=== PATIENT | female | born 1980 | race Caucasian/White ===

== ENCOUNTER 2019-08-22 16:52 | Inpatient (IN) | payer MEDICAID, SELFPAY | END 2019-08-27 12:07 | disposition home or self-care (01) | DRG 885 | PROVIDERS: Family Provider Family Medicine | DX: F33.1 Major depressive disorder, recurrent, moderate (principal); G40.209 Localization-related (focal) (partial) symptomatic epilepsy and epileptic syndromes with complex partial seizures, not intractable, without status epilepticus; R45.851 Suicidal ideations; Z96.9 Presence of functional implant, unspecified; Z28.21 Immunization not carried out because of patient refusal ==

== ENCOUNTER 2019-09-21 20:40 | Inpatient (IN) | payer MEDICAID, SELFPAY ==
[2019-09-21 20:48] VITALS: BP 117/72; PULSE 69; RESP 16; TEMP 36.6; O2SAT 100; BMI 22.9
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
[2019-09-21 21:18] LABS: Basophils # 0.1 10^3/uL (0.0-0.1); Basophils % 1.1 %; Eosinophils # 0.5 10^3/uL (0.0-0.8); Eosinophils % 11.4 %; Hematocrit 34.3 % (37.0-47.0); Hemoglobin 11.3 g/dL (11.5-15.3); Lymphocytes % 22.4 %; Mean Corpuscular HGB Conc 32.9 g/dL (30.0-36.0); Mean Corpuscular Hemoglobin 30.5 pg (28.0-34.0); Mean Corpuscular Volume 92.5 fL (81-99); Monocytes # 0.4 10^3/uL (0.2-0.9); Monocytes % 8.2 %; Neutrophils # 2.6 10^3/uL (1.8-7.7); Neutrophils % 56.5 %; Nucleated Red Blood Cells % 0 %; Platelet Count 253 10^3/cmm (130-400); Red Blood Count 3.71 10^6/uL (4.1-5.3); Red Cell Distribution Width 11.7 % (12.1-15.1); White Blood Count 4.6 10^3/uL (4.0-10.0)
[2019-09-21 21:32] LABS: Alanine Aminotransferase 10 U/L (0-33); Albumin Level 3.9 g/dL (3.5-5.2); Alkaline Phosphatase 62 IU/L (35-105); Anion Gap 13.1 (5-19); Aspartate Amino Transferase 15 U/L (0-32); Blood Urea Nitrogen 7 mg/dL (6-20); Calcium 9.2 mg/Dl (8.6-10.0); Carbon Dioxide 28 mmol/L (22-29); Chloride 101 mmol/L (98-107); Globulin 2.7 g/dL (1.3-4.6); Glomerular Filtration Rate 80.3 mL/min (90-130); Glucose 107 mg/dL (74-109); Potassium 4.1 mmol/L (3.5-5.1); Sodium 138 mmol/L (136-145); Total Bilirubin 0.2 mg/dL (0.15-1.2); Total Protein 6.6 g/dL (6.6-8.7)
[2019-09-21 21:34] LABS: Acetaminophen < 5.0 ug/mL (10-30); Alcohol Level < 10 mg/dL (0-10); Salicylate < 0.3 mg/dL (3-10)
[2019-09-21 22:11] LABS: HCG Qualitative Urine. Negative (Negative)
--- NOTE | 2019-09-21 23:01 | PC.NURSE ---
Attempted to call report 2 times NPU refused report due to patient not being registered properly.
--- NOTE | 2019-09-21 23:15 | PC.NURSE ---
Psych unable to take report due to just receiving a patient
[2019-09-22 00:08] VITALS: BP 98/73; PULSE 67; RESP 16; O2SAT 100
[2019-09-22 06:00] VITALS: BP 96/62; PULSE 77; RESP 14; TEMP 36.8; O2SAT 96
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
[2019-09-22] MEDS: carBAMazepine 200 mg Tablet PO (13:20)
[2019-09-22 14:00] VITALS: BP 103/67; PULSE 75; RESP 18; TEMP 36.4; O2SAT 98
[2019-09-22] MEDS: trazodone 50 mg Tablet PO ×2 (15:24→20:40)
[2019-09-22 17:27] LABS: Bilirubin Urine Neg (NEGATIVE); Blood Urine Neg (Negative); Glucose Urine UA Norm (Normal); Ketones Urine Negative (Negative); Leukocyte Esterase Urine Negative (Negative); Nitrate Urine Negative (Negative); Protein Urine Neg (Negative); Specific Gravity, Urine 1.005 (1.005-1.030); Urine Appearance Clear (CLEAR); Urine Color Yellow (Yellow); Urobilinogen Urine Norm (Negative); pH Urine 7 (5-7)
[2019-09-22 17:30] LABS: Add Urine Culture? No; Bacteria Urine 2+; WBC Urine 0-4 /hpf (0-5)
[2019-09-22] MEDS: fluticasone nasal spray 16gm Btl 1 SPRAY INTRANASAL (17:33)
[2019-09-22] MEDS: levETIRAcetam 500 mg Tablet 1000 MG PO (17:34)
[2019-09-22 17:46] LABS: Amphetamines Screen Urine Negative (Negative); Barbiturates Screen Urine Negative (Negative); Benzodiazepines Screen Urine Positive (Negative); Cocaine Screen Urine Negative (Negative); Opiate Screen Urine Negative (Negative); PCP Screen Urine Negative (Negative); THC Screen Urine Negative (Negative)
[2019-09-22] MEDS: carBAMazepine 200 mg Tablet 400 MG PO (20:40)
[2019-09-22 21:10] VITALS: BP 100/65; PULSE 82; RESP 16; TEMP 36.8; O2SAT 96
[2019-09-23 06:00] VITALS: BP 91/57; PULSE 70; RESP 16; TEMP 36.8; O2SAT 98
[2019-09-23] MEDS: montelukast sodium 10 mg Tablet PO (09:39)
[2019-09-23] MEDS: levETIRAcetam 500 mg Tablet 1000 MG PO (09:39)
[2019-09-23] MEDS: carBAMazepine 200 mg Tablet PO (09:41)
[2019-09-23] MEDS: trazodone 50 mg Tablet PO ×2 (09:41→14:28)
[2019-09-23] MEDS: fluticasone nasal spray 16gm Btl 1 SPRAY INTRANASAL (09:41)
[2019-09-23] MEDS: citalopram 20 mg Tablet PO (09:41)
[2019-09-23 14:00] VITALS: BP 98/69; PULSE 88; RESP 20; TEMP 36.3; O2SAT 96
[2019-09-23 15:13] VITALS: BP 98/69; PULSE 88; RESP 20; TEMP 36.3; O2SAT 96
--- NOTE | 2019-09-23 15:48 | PM.NDC ---
Reason for Visit Reason for Visit: Reason For Visit: SI Brief History: Chief complaint: I discussed so angry at my 16-year-old daughter I wanted to bring her neck. History of present illness: Donna Bravo is a 39-year-old woman with poorly controlled partial complex seizures that is well-known to the unit as she was just discharged from here less than a month ago.Historically, she has committed unit because of difficulty controlling her partial complex seizures and emotional difficulty from that. However, this event was resulted from family discord. She details a long history of Adversary relationship between she and her daughter on the day of admission. Prior to that confrontation, she was not having suicidal thoughts and does not relate that she was in emotional distress. However, her daughter has become increasingly defiant. Mother is uncomfortable with the daughter's relationship with another boy and tried to intervene personally. This amplified the discord. She was so distraught she was wishing she was . However at no time did she ever have an intent or plan to end her life. She did not use her coping skills of writing a journal. She says that she has no supportive relationships that she can rely on during her periods of stress to help her with coping skills. Following her last discharge, [facility] She says that the [facility] keeps trying to get a hold of her and she is unavailable so she has not been able to set up appointment for individual counseling. She denies problems with the seizure control. She is active in treatment with Dr. Lowe. In fact, she has an appointment with Dr. Lowe later this afternoon and she prefers to remain in the hospital until she is through her episode of emotional distress. She denies the presence of auditory or visual hallucinations. She denies problems with current side effects. She requested no changes in medications. Hospital Course Discharge Summary Diagnoses:Adjustment disorder with disturbance of mood Assessment:The patient is on voluntary status. No medication changes are indicated. Treatment plan: Due to the psychiatric conditions and treatment listed in the Assessment and Plan - the patient requires continued hospitalization. Will provide a safe and therapeutic environment for patient.. Will continue inpatient treatment to allow for medication adjustment and monitoring. Will continue q15 min safety checks. Will continue current medications and monitor for medication side effects. By hospital day #3, she has resolved her emotional distress with medication. She was having suicidal thoughts. She had a plan on how to deal with her anger next time she got into an argument with her daughter. She agreed that she needed to be a little bit more assertive and imaging available for [facility] when they contacted her to set up an intake appointment. 96 hour involuntary discontinued and she was discharged. Involuntary Hold Information 96 Hour Hold: 96 Hour Involuntary Admission: No Mental Status Exam MSE Comments: Mental Status Exam: The patient is alert interpersonally engaged female appearing approximately her stated age. She is in no emotional distress. She is not tearful. Appearance: hygiene is fair; no gross neurological deficits., gait is unremarkable; AIMS=0 Speech: Speech is of normal rate and rhythm and easily understood. Thought processes: Thought processes are abstract. Judgment is adequate for safety. Associations: intact Psychotic processes: There is no indication of guarding or paranoia. There is no attention to the internal stimuli. Auditory and visual hallucinations are denied. Judgment: Insight is fair. Problem solving skills are adequate for safety. Orientation: The patient is oriented to person, place time and situation. Memory: no deficits noted in immediate, intermediate, or remote spheres. Attention: The patient is alert and interpersonally engaged. Language: Verbalizations are coherent. Fund of knowledge: Fund of knowledge is adequate. Affect/Mood: Affect is Happy with a Euthymic mood. She denied suicidal ideation Affective range appropriate. Psychosis: perception unimpaired except through cognitive distortion; reality testing intact. Discharge Data Data Completed and Pending: Labs from last 24 hours 09/22/19 09/22/19 15:30 15:30 Urine Color Yellow Urine Appearance Clear Urine pH 7 Ur Specific Gravit y 1.005 Urine Protein Neg Urine Glucose (UA) Norm Urine Ketones Negative Urine Occult Blood Neg Urine Nitrate Negative Urine Bilirubin Neg Urine Urobilinogen Norm Ur Leukocyte Nikki ase Negative Urine RBC None Urine WBC 0-4 H Ur Squamous Epith Cells 5-10 H Urine Bacteria 2+ H Urine Opiates Scre en Negative Ur Barbiturates Sc reen Negative Ur Phencyclidine S crn Negative Ur Amphetamines Sc reen Negative U Benzodiazepines Scrn Positive H Urine Cocaine Scre en Negative U Marijuana (THC) Screen Negative Vitals: Last Vital Signs Temp 97.4 F L 09/23/19 15:13 Pulse 88 09/23/19 15:13 Resp 20 H 09/23/19 15:13 BP 98/69 09/23/19 15:13 Pulse Ox 96 09/23/19 15:13 Discharge Plan Discharge Patient Disposition: Home, Self-Care Condition: Stable Prescriptions: Continued trazodone 50 mg Tablet 50 mg PO TID Qty: 30 RF: 2 Keppra 500 mg Tablet 1,000 mg PO BID Qty: 60 RF: 2 citalopram 20 mg Tablet 20 mg PO DAILY Qty: 30 RF: 2 naproxen sodium 220 mg Tablet 220 mg PO BID PRN (Reason: Pain) Qty: 60 RF: 2 montelukast 10 mg Tablet 10 mg PO DAILY Qty: 30 RF: 2 fluticasone propionate 50 mcg/actuation [place],Suspension 1 spray INTRANASAL BID Qty: 30 RF: 2 diazepam 5 mg Tablet 5 mg PO QPM PRN (Reason: Anxiety) Qty: 30 RF: 1 clobazam 20 mg Tablet 30 mg PO QPM Qty: 30 RF: 0 Changed carbamazepine 200 mg Capsule, Er Multiphase 12 Hr 400 mg PO BEDTIME Qty: 60 RF: 0 Discharge Orders: Discharge Order (Routine); Ordered 09/23/19 Ordered By: Luciano Choe Referrals: Dana Lowe MD [Physician] - 10/27/19 3:15 pm Activity Restrictions/Additional Instructions: [facility] [place] [address] Referral was done for individual therapy. you will need to keep checking on appointment. Referral is still pending. Discharge Attestations NPU Time Spent in Discharge Care*: greater than 30 min Coding Level of Care Code Acute [employer] for Jenniferg Jacinto
[2019-09-23 17:15] VITALS: BP 98/69; PULSE 88; RESP 20; TEMP 36.3; O2SAT 96
== END 2019-09-23 17:15 | disposition home or self-care (01) | DRG 882 ==
LOC: ER 21:13 → NP 22:33
PROVIDERS: Emergency Medicine; Admitting Provider Psychiatry & Neurology Psychiatry; Emergency Provider Emergency Medicine; Family Provider Family Medicine; PCP Family Medicine; Visit Provider Psychiatry & Neurology Psychiatry
DX: F43.25 Adjustment disorder with mixed disturbance of emotions and conduct (principal); G40.209 Localization-related (focal) (partial) symptomatic epilepsy and epileptic syndromes with complex partial seizures, not intractable, without status epilepticus; R45.851 Suicidal ideations
CPT/HCPCS: 12345; 36415; 80053; 80307; 81001; 81025; 85025; 99284

== ENCOUNTER 2019-09-21 20:40 | Emergency (ER) | payer MEDICAID, SELFPAY | END 2019-09-22 00:10 | disposition admitted as inpatient to this hospital (09) | LOC: ER 10-21 10:00 | PROVIDERS: Emergency Provider Emergency Medicine; Family Provider Family Medicine; PCP Family Medicine | DX: R45.851 Suicidal ideations (principal) | CPT/HCPCS: 36415; 80053; 80307; 81025; 85025; 99284; 99285 ==

== ENCOUNTER 2019-10-29 18:04 | Emergency (ER) | payer MEDICAID, SELFPAY ==
[2019-10-29 18:07] VITALS: BMI 23.6
[2019-10-29 18:13] VITALS: BP 115/66; PULSE 62; RESP 16; TEMP 36.8; O2SAT 100
--- NOTE | 2019-10-29 18:13 | ED_ITS ---
Entered by Kourtney Meadows, acting as scribe for Yaneth Charles MD HPI - Psych General: Chief Complaint: Psychiatric Symptoms Stated Complaint: SI Time Seen by Provider: 10/29/19 18:12 Source: patient Mode of arrival: EMS Limitations: no limitations History of Present Illness: HPI Narrative: 39 yo Female presents to ED with complaint of suicidal ideation. Pt states that she told her mom that she would take all of the cats and shoot them and shoot herself since they were all stressors to her mom. Pt states that her mom has been at [employer] and things were going well with her daughter and new rules at the house. Pt states that when her mom came home, she tried changing the rules and got upset that she didn't want the cats in her room. Pt states that she isn't having homicidal or suicidal ideation. Pt states that she just made the statement out of frustration. Pt states that her mom called EMS and she tried to call them back to cancel them but it was too late and she got brought in. complaint: suicidal ideation Onset (ago): hour(s) Duration: resolved prior to arrival History of same: Yes Relieving factors: none Exacerbating factors: none Associated psychiatric symptoms: none Associated symptoms: Deny homicidal ideation or suicidal ideation Treatments prior to arrival: none Review of Systems Const: Denies: fever, chills, body aches or change in appetite Eyes: Denies: blurry vision or eye discomfort ENMT: Denies: throat pain or dental pain Card: Denies: chest pain Resp: Denies: shortness of breath GI: Denies: abdominal pain, nausea, vomiting or diarrhea : Denies: painful urination Musc: Denies: neck pain or back pain Skin/Breast: Denies: rash Neuro: Denies: headache Psych: Denies: suicidal ideation or homicidal ideation Be/Lymph: Denies: easy bruising All/Imm: Denies: hives PFSH ED PFSH: Social History Smoking and tobacco status: never smoked Female Reproductive History: Date of last menstrual period: 10/25/19 Physical Exam Const: COMMON NORMALS: no apparent distress, oriented x3 and healthy appearing HENMT: COMMON NORMALS: normocephalic and head/scalp atraumatic HEAD & SCALP: normocephalic and atraumatic Eye: COMMON NORMALS: PERRL and EOMs intact bilaterally PUPIL: Yes PERRL Neck/C-Spine: COMMON NORMALS: full ROM and supple Chest: COMMONS NORMALS: inspection of chest normal and palpation of chest normal Resp: COMMON NORMALS: normal respiratory effort, no retractions, no use of accessory muscles and clear to auscultation bilaterally AUSCULTATION: clear to auscultation bilaterally Cardio: COMMON NORMALS: regular rate, regular rhythm and no murmurs RATE: regular rate RHYTHM: regular rhythm GI: COMMON NORMALS: normal to inspection, nondistended, normoactive bowel sounds, soft to palpation, non-tender and no masses PALPATION: Yes soft Extremity: COMMON NORMALS: normal to inspection and full ROM Neuro: COMMON NORMALS: oriented x3, moves all extremities and no focal motor deficits Psych: COMMON NORMALS: mental status grossly normal, thought process normal and cooperative THOUGHT PROCESS: normal thought process Skin: COMMON NORMALS: no rashes or lesions noted and no wounds GENERAL SKIN EXAM: no rashes or lesions noted MDM - Psych MDM Narrative: Medical decision making narrative: Patient presents here with anxiety. Patient adamantly denied any suicidality or homicidality me along with EMS. She has no signs of wanting to kill herself. Had a very long discussion with her I feel she is stable for discharge. She said many times she was just upset with her mother. Patient is stable for discharge and is to return if worsening. Discharge Plan Discharge Patient Disposition: Home, Self-Care Clinical Impression: Acute anxiety Condition: Stable Prescriptions: No Action trazodone 50 mg Tablet 50 mg PO TID Qty: 30 RF: 2 Keppra 500 mg Tablet 1,000 mg PO BID Qty: 60 RF: 2 citalopram 20 mg Tablet 20 mg PO DAILY Qty: 30 RF: 2 naproxen sodium 220 mg Tablet 220 mg PO BID PRN (Reason: Pain) Qty: 60 RF: 2 montelukast 10 mg Tablet 10 mg PO DAILY Qty: 30 RF: 2 fluticasone propionate 50 mcg/actuation [place],Suspension 1 spray INTRANASAL BID Qty: 30 RF: 2 diazepam 5 mg Tablet 5 mg PO QPM PRN (Reason: Anxiety) Qty: 30 RF: 1 carbamazepine 200 mg Capsule, Er Multiphase 12 Hr 400 mg PO BEDTIME Qty: 60 RF: 0 clobazam 20 mg Tablet 30 mg PO QPM Qty: 30 RF: 0 Discharge Orders: Discharge Order (Routine); Ordered 10/29/19 Ordered By: Yaneth Charles Referrals: Ciera Deng MD [Primary Care Provider] - 4-7 days Discharge Diet: Advance as tolerated Discharge Activity: Resume usual activity Patient Instructions: Anxiety (ED) Discharge Date/Time: 10/29/19 19:34 Coding Level of Care Code ED Fiscal Analyst for Chg Fwd Exam Comprehensive The documentation recorded by the Dori tamayo Carmen, accurately reflects the service I personally performed and the decisions made by Melvin amin Korby, MD Oct 29, 2019 18:04
[2019-10-29 18:19] VITALS: O2SAT 99
[2019-10-29] MEDS: LORazepam 1 mg Tablet 0.5 MG PO (19:26)
== END 2019-10-29 19:34 | disposition home or self-care (01) ==
PROVIDERS: Emergency Provider Emergency Medicine; Family Provider Family Medicine; PCP Family Medicine
DX: F41.9 Anxiety disorder, unspecified (principal)
CPT/HCPCS: 99284

== ENCOUNTER → 2019-11-06 12:56 | Outpatient (BNVA) | payer MEDICAID, SELFPAY | PROVIDERS: Family Provider Family Medicine; PCP Family Medicine; Visit Provider Counselor Mental Health | DX: F41.1 Generalized anxiety disorder (principal) | CPT/HCPCS: 90834 ==

== ENCOUNTER → 2019-11-13 14:30 | Outpatient (BNVA) | payer MEDICAID, SELFPAY | PROVIDERS: Family Provider Family Medicine; PCP Family Medicine; Visit Provider Counselor Mental Health | DX: F41.1 Generalized anxiety disorder (principal) | CPT/HCPCS: 90834 ==

== ENCOUNTER → 2019-11-18 14:22 | Outpatient (BNVA) | payer MEDICAID, SELFPAY | PROVIDERS: Family Provider Family Medicine; PCP Family Medicine; Visit Provider Counselor Mental Health | DX: F33.41 Major depressive disorder, recurrent, in partial remission (principal) | CPT/HCPCS: 90834 ==

== ENCOUNTER → 2019-11-25 14:45 | Outpatient (BNVA) | payer MEDICAID, SELFPAY | PROVIDERS: Family Provider Family Medicine; PCP Family Medicine; Visit Provider Counselor Mental Health | DX: F33.41 Major depressive disorder, recurrent, in partial remission (principal) | CPT/HCPCS: 90834 ==

== ENCOUNTER → 2019-12-16 08:53 | Outpatient (BNVA) | payer MEDICAID, SELFPAY | PROVIDERS: Family Provider Family Medicine; PCP Family Medicine; Visit Provider Psychiatry & Neurology Psychiatry | DX: F41.1 Generalized anxiety disorder (principal); F33.1 Major depressive disorder, recurrent, moderate; F60.9 Personality disorder, unspecified; F33.2 Major depressive disorder, recurrent severe without psychotic features | CPT/HCPCS: 99204 ==

== ENCOUNTER → 2019-12-22 08:40 | Outpatient (BNVA) | payer MEDICAID, SELFPAY | PROVIDERS: Family Provider Family Medicine; PCP Family Medicine; Visit Provider Counselor Mental Health | DX: F41.1 Generalized anxiety disorder (principal); F33.1 Major depressive disorder, recurrent, moderate; F60.9 Personality disorder, unspecified | CPT/HCPCS: 90834 ==

== ENCOUNTER → 2019-12-28 14:54 | Outpatient (BNVA) | payer MEDICAID, SELFPAY | PROVIDERS: Family Provider Family Medicine; PCP Family Medicine; Visit Provider Specialist | DX: G40.219 Localization-related (focal) (partial) symptomatic epilepsy and epileptic syndromes with complex partial seizures, intractable, without status epilepticus (principal) | CPT/HCPCS: 95971; 99214 ==

== ENCOUNTER → 2020-01-05 08:37 | Outpatient (BNVA) | payer MEDICAID, SELFPAY | PROVIDERS: Family Provider Family Medicine; PCP Family Medicine; Visit Provider Counselor Mental Health | DX: F60.9 Personality disorder, unspecified (principal); F33.1 Major depressive disorder, recurrent, moderate; F41.1 Generalized anxiety disorder | CPT/HCPCS: 90834 ==

== ENCOUNTER → 2020-01-12 08:25 | Outpatient (BNVA) | payer MEDICAID, SELFPAY | PROVIDERS: Family Provider Family Medicine; PCP Family Medicine; Visit Provider Counselor Mental Health | DX: F33.1 Major depressive disorder, recurrent, moderate (principal); F41.1 Generalized anxiety disorder | CPT/HCPCS: 90834 ==

== ENCOUNTER → 2020-01-15 16:45 | Outpatient (BNVA) | payer MEDICAID, SELFPAY | PROVIDERS: Family Provider Family Medicine; PCP Family Medicine; Visit Provider Nurse Practitioner Family | DX: J30.89 Other allergic rhinitis (principal); F41.1 Generalized anxiety disorder; Z13.6 Encounter for screening for cardiovascular disorders | CPT/HCPCS: 80053; 80061; 84443; 85025 ==

== ENCOUNTER → 2020-01-19 08:52 | Outpatient (BNVA) | payer MEDICAID, SELFPAY | PROVIDERS: Family Provider Family Medicine; PCP Family Medicine; Visit Provider Counselor Mental Health | DX: F33.1 Major depressive disorder, recurrent, moderate (principal); F41.1 Generalized anxiety disorder | CPT/HCPCS: 90834 ==

== ENCOUNTER → 2020-01-27 08:29 | Outpatient (BNVA) | payer MEDICAID, SELFPAY | PROVIDERS: Family Provider Family Medicine; PCP Family Medicine; Visit Provider Psychiatry & Neurology Psychiatry | DX: F41.1 Generalized anxiety disorder (principal); F33.1 Major depressive disorder, recurrent, moderate; F60.9 Personality disorder, unspecified | CPT/HCPCS: 99213 ==

== ENCOUNTER → 2020-02-02 08:53 | Outpatient (BNVA) | payer MEDICAID, SELFPAY | PROVIDERS: Family Provider Family Medicine; PCP Family Medicine; Visit Provider Counselor Mental Health | DX: F33.1 Major depressive disorder, recurrent, moderate (principal); F41.1 Generalized anxiety disorder | CPT/HCPCS: 90834 ==

== ENCOUNTER → 2020-02-09 08:30 | Outpatient (BNVA) | payer MEDICAID, SELFPAY | PROVIDERS: Family Provider Family Medicine; PCP Family Medicine; Visit Provider Counselor Mental Health | DX: F33.1 Major depressive disorder, recurrent, moderate (principal); F41.1 Generalized anxiety disorder | CPT/HCPCS: 90834 ==

== ENCOUNTER → 2020-02-16 08:15 | Outpatient (BNVA) | payer MEDICAID, SELFPAY | PROVIDERS: Family Provider Family Medicine; PCP Family Medicine; Visit Provider Counselor Mental Health | DX: F60.9 Personality disorder, unspecified (principal); F33.1 Major depressive disorder, recurrent, moderate; F41.1 Generalized anxiety disorder | CPT/HCPCS: 90834 ==

== ENCOUNTER → 2020-02-23 08:18 | Outpatient (BNVA) | payer MEDICAID, SELFPAY | PROVIDERS: Family Provider Family Medicine; PCP Family Medicine; Visit Provider Counselor Mental Health | DX: F33.1 Major depressive disorder, recurrent, moderate (principal); F41.1 Generalized anxiety disorder; F60.9 Personality disorder, unspecified | CPT/HCPCS: 90832 ==

== ENCOUNTER → 2020-03-02 14:20 | Outpatient (BNVA) | payer MEDICAID, SELFPAY | PROVIDERS: Family Provider Family Medicine; PCP Family Medicine; Visit Provider Specialist | DX: G40.219 Localization-related (focal) (partial) symptomatic epilepsy and epileptic syndromes with complex partial seizures, intractable, without status epilepticus (principal) | CPT/HCPCS: 99214 ==

== ENCOUNTER 2020-03-02 15:17 | Outpatient (CLI) | payer MEDICAID, SELFPAY ==
[2020-03-02 16:44] LABS: Carbamazepine Tegretol 5.9 ug/mL (4.0-12.0)
[2020-03-05 18:04] LABS: Levetiracetam Keppra 24.1 mcg/mL
== END 2020-03-02 15:18 | disposition home or self-care (01) ==
LOC: LAB 15:19
PROVIDERS: PCP Family Medicine; Visit Provider Specialist
DX: G40.219 Localization-related (focal) (partial) symptomatic epilepsy and epileptic syndromes with complex partial seizures, intractable, without status epilepticus (principal)
CPT/HCPCS: 36415; 80156; 80177

== ENCOUNTER → 2020-03-16 08:34 | Outpatient (BNVA) | payer MEDICAID, SELFPAY | PROVIDERS: PCP Family Medicine; Visit Provider Counselor Mental Health | DX: F60.9 Personality disorder, unspecified (principal); F33.1 Major depressive disorder, recurrent, moderate; F41.1 Generalized anxiety disorder | CPT/HCPCS: 90834 ==

== ENCOUNTER → 2020-03-23 08:03 | Outpatient (BNVA) | payer MEDICAID, SELFPAY | PROVIDERS: PCP Family Medicine; Visit Provider Counselor Mental Health | DX: F33.1 Major depressive disorder, recurrent, moderate (principal); F41.1 Generalized anxiety disorder; F60.9 Personality disorder, unspecified | CPT/HCPCS: 90834 ==

== ENCOUNTER → 2020-03-30 08:12 | Outpatient (BNVA) | payer MEDICAID, SELFPAY | PROVIDERS: PCP Family Medicine; Visit Provider Counselor Mental Health | DX: F33.1 Major depressive disorder, recurrent, moderate (principal); F41.1 Generalized anxiety disorder; F60.9 Personality disorder, unspecified | CPT/HCPCS: 90834 ==

== ENCOUNTER → 2020-04-06 08:55 | Outpatient (BNVA) | payer MEDICAID, SELFPAY | PROVIDERS: PCP Family Medicine; Visit Provider Counselor Mental Health | DX: F33.1 Major depressive disorder, recurrent, moderate (principal); F60.9 Personality disorder, unspecified; F41.1 Generalized anxiety disorder | CPT/HCPCS: 90834 ==

== ENCOUNTER → 2020-04-20 09:55 | Outpatient (BNVA) | payer MEDICAID, SELFPAY | PROVIDERS: Family Provider Family Medicine; PCP Family Medicine; Visit Provider Psychiatry & Neurology Psychiatry | DX: F41.1 Generalized anxiety disorder (principal); F33.1 Major depressive disorder, recurrent, moderate; F60.9 Personality disorder, unspecified | CPT/HCPCS: 99213 ==

== ENCOUNTER → 2020-04-25 10:42 | Outpatient (BNVA) | payer MEDICAID, SELFPAY | PROVIDERS: Family Provider Family Medicine; PCP Family Medicine; Visit Provider Counselor Mental Health | DX: G40.219 Localization-related (focal) (partial) symptomatic epilepsy and epileptic syndromes with complex partial seizures, intractable, without status epilepticus (principal); F60.9 Personality disorder, unspecified; F33.1 Major depressive disorder, recurrent, moderate; F41.1 Generalized anxiety disorder | CPT/HCPCS: 90834 ==

== ENCOUNTER → 2020-05-03 10:20 | Outpatient (BNVA) | payer MEDICAID, SELFPAY | PROVIDERS: Family Provider Family Medicine; PCP Family Medicine; Visit Provider Counselor Mental Health | DX: F33.1 Major depressive disorder, recurrent, moderate (principal); F07.9 Unspecified personality and behavioral disorder due to known physiological condition; F41.1 Generalized anxiety disorder | CPT/HCPCS: 90834 ==

== ENCOUNTER → 2020-05-11 10:17 | Outpatient (BNVA) | payer MEDICAID, SELFPAY | PROVIDERS: Family Provider Family Medicine; PCP Family Medicine; Visit Provider Counselor Mental Health | DX: F60.9 Personality disorder, unspecified (principal); G40.219 Localization-related (focal) (partial) symptomatic epilepsy and epileptic syndromes with complex partial seizures, intractable, without status epilepticus; F33.1 Major depressive disorder, recurrent, moderate; F41.1 Generalized anxiety disorder | CPT/HCPCS: 90832 ==

== ENCOUNTER → 2020-05-17 08:53 | Outpatient (BNVA) | payer MEDICAID, SELFPAY | PROVIDERS: Family Provider Family Medicine; PCP Family Medicine; Visit Provider Counselor Mental Health | DX: F41.1 Generalized anxiety disorder (principal); F33.1 Major depressive disorder, recurrent, moderate | CPT/HCPCS: 90834 ==

== ENCOUNTER 2020-05-24 20:15 | Emergency (ER) | payer MEDICAID, SELFPAY ==
[2020-05-24 20:21] VITALS: BP 110/75; PULSE 80; RESP 16; TEMP 36.9; O2SAT 96; BMI 26.4
--- NOTE | 2020-05-24 20:25 | XRR_ITS ---
PROCEDURE INFORMATION: Exam: XR Chest, 1 View Exam date and time: 05/24/2020 8:42 PM Age: 40 years old Clinical indication: Other: Seizure, headache; Additional info: Wheezing TECHNIQUE: Imaging protocol: XR of the chest Views: Frontal portable upright view of the chest. COMPARISON: CR Chest 2 views* [id number] 07/16/2017 8:34 AM FINDINGS: Tubes, catheters and devices: Left cervical neural stimulator. Lungs: The lungs are clear bilaterally. The pulmonary vasculature is normal. Pleural space: No pleural effusion. No pneumothorax. Heart/Mediastinum: The heart is normal in size and contour. Mediastinum: Stable. Bones/joints: Stable. XR/XR chest 1V portable [id number] IMPRESSION: No acute cardiopulmonary abnormality identified.
--- NOTE | 2020-05-24 20:28 | ED_ITS ---
HPI - Seizure General: Chief Complaint: Seizure Stated Complaint: seizure Time Seen by Provider: 05/24/20 20:19 Source: patient and EMS Mode of arrival: EMS Limitations: no limitations History of Present Illness: HPI Narrative: Donna is a very nice 40-year-old female who comes in after having 3 seizures today. She has a history of epilepsy and complex partial seizures. She states that she has been going with less sleep than normal and also is on her menstrual cycle. She states that she is normally prone to more seizures during her menstrual cycle. She denies injuries from today seizures. Patient states she is having a flareup of asthma as well because of the seasonal allergens that are more abundant. She denies any headache, fever, chills, chest pain, shortness of breath, abdominal pain, back pain or any other complaints. She was brought in by EMS but did not receive anything in route. Associated symptoms: Deny chest pain, chills, confusion, diaphoresis, fever(s), malaise or syncope Review of Systems Const: Denies: fever(s), chills, body aches, fatigue, malaise or diaphoresis Eyes: Denies: change in vision, blurry vision, photophobia, eye discomfort, eye discharge, eye redness or yellow eyes ENMT: Denies: throat pain, odynophagia, hoarseness, swelling of lips/tongue, ear or mastoid pain, ear discharge, change in hearing or nasal discharge Card: Denies: chest pain, palpitations, irregular heart rhythm, edema, lightheadedness, syncope, pre-syncope, dyspnea on exertion or orthopnea Resp: Denies: dyspnea, productive cough, non-productive cough, wheezing, hemoptysis or chest congestion GI: Denies: abdominal pain, nausea, vomiting, hematemesis, coffee ground emesis, heartburn, diarrhea, constipation, GI cramping, hematochezia or melena : Denies: flank pain, dysuria, urinary frequency, urinary urgency or hematuria Musc: Denies: neck pain, back pain, extremity pain, extremity swelling, joint pain, joint swelling, joint redness, joint warmth or joint stiffness Skin/Breast: Denies: rash, pruritus, erythema, skin pain or skin tenderness Neuro: Reports: seizure-like activity (See HPI); Denies: headache(s), numbness in extremities, weakness in extremities, sensory changes, lack of coordination, difficulty walking, dizziness, vertigo, confusion or Slurred speech present Be/Lymph: Denies: easy bruising, easy bleeding, petechiae, purpura or enlarged lymph nodes All/Imm: Denies: urticaria, throat swelling, tongue swelling, facial swelling or acute wheezing PFSH ED PFSH: Medical History (Updated 05/24/20 @ 22:56 by Ada Skaggs) Asthma Environmental and seasonal allergies Generalized anxiety disorder 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 Major depressive disorder, recurrent, moderate Partial epilepsy secondarily generalised Unspecified personality disorder Surgical History (Updated 05/24/20 @ 20:29 by Ada Skaggs) History of dental surgery Status post VNS (vagus nerve stimulator) placement Family History Father Diabetes Hypertension Mother Hypertension Social History Smoking and tobacco status: never smoked Female Reproductive History: Date of last menstrual period: 10/25/19 Physical Exam Const: COMMON NORMALS: no acute distress, patient oriented x3, no limitations and alert GENERAL APPEARANCE: cooperative HENMT: COMMON NORMALS: normocephalic, atraumatic, external ears normal, EAC's normal and Normal external nose present HEAD & SCALP: normal to inspection, normocephalic and atraumatic FACE & SINUS: normal facial exam and face symmetric NOSE: Normal external nose present and Normal nares present EXTERNAL EAR: Yes external ears normal EXTERNAL AUDITORY CANAL: EAC's normal MOUTH: Normal oral and palatal mucosa present, lip normal and tongue normal Eye: COMMON NORMALS: Equal, round and reactive pupils present and conjunctivae normal GENERAL EYE: appearance normal, both eyes and all related structures ALIGNMENT: Yes alignment normal PERIORBITAL: periorbital findings normal EYELID: eyelids normal CONJUNCTIVA: Yes conjunctivae normal SCLERA: sclerae normal PUPIL: Yes Equal, round and reactive pupils present Neck/C-Spine: COMMON NORMALS: full ROM, no lymphadenopathy, supple, no meningeal signs and no JVD GENERAL: Yes normal visual inspection and Yes trachea midline Chest: COMMONS NORMALS: normal inspection of the chest and normal palpation of entire chest wall Resp: COMMON NORMALS: normal respiratory effort, No retractions, No use of accessory muscles and clear to auscultation bilaterally EFFORT & INSPECTION: Yes able to speak in complete sentences and Yes symmetric chest movement AUSCULTATION: clear to auscultation bilaterally, no crackles, no rales, no rhonchi and no wheezes Cardio: COMMON NORMALS: no JVD, regular rate, regular rhythm, S1 normal heart sound present and S2 normal heart sound present RATE: regular rate RHYTHM: regular rhythm HEART SOUNDS: S1 normal heart sound present, S2 normal heart sound present, no click, no gallops, no murmurs and no rubs GI: COMMON NORMALS: Soft to palpation and No hepatosplenomegaly present PALPATION: Yes Soft to palpation, No Tenderness to palpation present (GI), No Guarding due to palpation present (GI), No Rigid due to palpation, Yes No hepatosplenomegaly present, No Hernia present, No Palpable mass present and No Pulsatile mass present : COMMON NORMALS: Yes no CVA tenderness BLADDER/KIDNEY EXAM: Yes no CVA tenderness EXTERNAL FEMALE EXAM: No Hernia present Back/Pelvis: COMMON NORMALS: no CVA tenderness, thoracic and lumbar spine normal to inspection, no thoracic nor lumbar tenderness and thoraco-lumbar ROM normal Extremity: COMMON NORMALS: normal to inspection, full ROM, capillary refill normal, no joint enlargement, no clubbing, cyanosis or edema and no calf tenderness Neuro: COMMON NORMALS: patient oriented x3, CN's II-XII intact bilaterally, moves all extremities, no focal motor deficits and no sensory deficits noted SENSORIUM/ORIENTATION: Yes alert MENINGEAL SIGNS: Yes no meningeal signs SPEECH: speech normal Psych: COMMON NORMALS: mental status grossly normal, Normal thought process present, cooperative, normal affect, speech normal and activity/motor behavior normal SPEECH: Yes normal speech THOUGHT PROCESS: Normal thought process present Skin: COMMON NORMALS: no rashes or lesions noted, turgor normal, no jaundice, no petechiae and no mottling GENERAL SKIN EXAM: no rashes or lesions noted and turgor normal Course Vital Signs: Vital signs: Vital Signs Temperature 98.4 F 05/24/20 20:21 Pulse Rate 88 05/24/20 23:00 Respiratory Rate 16 05/24/20 23:00 Blood Pressure 112/68 05/24/20 23:00 Pulse Oximetry 98 05/24/20 23:00 MDM - Seizure MDM Narrative: Medical decision making narrative: Reinaldo Ornelas is a nice 40-year-old female who comes in with a recurrent seizure. She states she has up to 2-3 surgeries per week. She had more today but states this is likely due to her menstruation. Patient denies any medication noncompliance but does state that she went without her usual amount of sleep. There is no evidence of infection, injury or other acute problem at this time. Patient declines any further evaluation care would like to be discharged. She was given a milligram of Ativan to help prevent any recurrence of seizures. She is feeling better at this time she would like to be discharged. Lab Data: Labs: Lab Results 05/24/20 05/24/20 05/24/20 Range/Units 20:37 20:37 20:37 WBC 5.1 (4.0-10.0) 10^3/ uL RBC 3.67 L (4.1-5.3) 10^6/u L Hgb 10.7 L (11.5-15.3) g/dL Hct 32.1 L (37.0-47.0) % MCV 87.5 (81-99) fL MCH 29.2 (28.0-34.0) pg MCHC 33.3 (30.0-36.0) g/dL RDW 12.5 (12.1-15.1) % Plt Count 246 (130-400) 10^3/c mm MPV 8.7 (7.4-10.4) fL Neut % (Auto) 75.5 % Lymph % (Auto) 17.0 % Kern % (Auto) 7.1 % Eos % (Auto) 0.0 % Baso % (Auto) 0.2 % Neut # (Auto) 3.82 (1.8-7.7) 10^3/u L Lymph # (Auto) 0.9 (0.8-4.8) 10^3/u L Kern # (Auto) 0.4 (0.2-0.9) 10^3/u L Eos # (Auto) 0.0 (0.0-0.8) 10^3/u L Baso # (Auto) 0.0 (0.0-0.1) 10^3/u L Nucleated RBC % (a uto) 0 % Nucleated RBCs # 0.0 /100WBC Sodium 131 L (136-145) mmol/L Potassium 3.9 (3.5-5.1) mmol/L Chloride 97 L (98-107) mmol/L Carbon Dioxide 25 (22-29) mmol/L Anion Gap 12.9 (5-19) BUN 4 L (6-20) mg/dL Creatinine 0.9 (0.5-0.9) mg/dL GFR Calculation 69.7 L (90-130) mL/min Glucose 99 (65-115) mg/dL Calculated Osmolal ity 269 L (285-295) mOsm/k g Calcium 8.7 (8.5-10.5) mg/dL Magnesium 1.9 (1.7-2.3) mg/dL Total Bilirubin 0.2 (0.15-1.2) mg/dL AST 20 (0-32) U/L ALT 11 (0-33) U/L Alkaline Phosphata se 71 (35-105) IU/L Total Protein 6.5 L (6.6-8.7) g/dL Albumin 4.1 (3.5-5.2) g/dL Globulin 2.4 (1.3-4.6) g/dL HCG, Qual Negative (Negative) Urine Color (Yellow) Urine Appearance (CLEAR) Urine pH (5-7) Ur Specific Gravit y (1.005-1.030) Urine Protein (Negative) Urine Glucose (UA) (Normal) Urine Ketones (Negative) Urine Blood (Negative) Urine Nitrate (Negative) Urine Bilirubin (Negative) Urine Urobilinogen (Negative) mg/dL Ur Leukocyte Nikki ase (Negative) 05/24/20 Range/Units 22:09 WBC (4.0-10.0) 10^3/ uL RBC (4.1-5.3) 10^6/u L Hgb (11.5-15.3) g/dL Hct (37.0-47.0) % MCV (81-99) fL MCH (28.0-34.0) pg MCHC (30.0-36.0) g/dL RDW (12.1-15.1) % Plt Count (130-400) 10^3/c mm MPV (7.4-10.4) fL Neut % (Auto) % Lymph % (Auto) % Kern % (Auto) % Eos % (Auto) % Baso % (Auto) % Neut # (Auto) (1.8-7.7) 10^3/u L Lymph # (Auto) (0.8-4.8) 10^3/u L Kern # (Auto) (0.2-0.9) 10^3/u L Eos # (Auto) (0.0-0.8) 10^3/u L Baso # (Auto) (0.0-0.1) 10^3/u L Nucleated RBC % (a uto) % Nucleated RBCs # /100WBC Sodium (136-145) mmol/L Potassium (3.5-5.1) mmol/L Chloride (98-107) mmol/L Carbon Dioxide (22-29) mmol/L Anion Gap (5-19) BUN (6-20) mg/dL Creatinine (0.5-0.9) mg/dL GFR Calculation (90-130) mL/min Glucose (65-115) mg/dL Calculated Osmolal ity (285-295) mOsm/k g Calcium (8.5-10.5) mg/dL Magnesium (1.7-2.3) mg/dL Total Bilirubin (0.15-1.2) mg/dL AST (0-32) U/L ALT (0-33) U/L Alkaline Phosphata se (35-105) IU/L Total Protein (6.6-8.7) g/dL Albumin (3.5-5.2) g/dL Globulin (1.3-4.6) g/dL HCG, Qual (Negative) Urine Color Yellow (Yellow) Urine Appearance Clear (CLEAR) Urine pH 7 (5-7) Ur Specific Gravit y 1.010 (1.005-1.030) Urine Protein Neg (Negative) Urine Glucose (UA) Norm (Normal) Urine Ketones Negative (Negative) Urine Blood Neg (Negative) Urine Nitrate Negative (Negative) Urine Bilirubin Neg (Negative) Urine Urobilinogen Norm (Negative) mg/dL Ur Leukocyte Nikki ase Negative (Negative) Imaging Data^: CXR: Attestation: I personally reviewed and interpreted this imaging study as follows: My impression: No acute cardiopulmonary findings. Discharge Plan Discharge Patient Disposition: Home Clinical Impression: Epileptic seizure Qualifiers: Epilepsy type: unspecified Intractability: not intractable Status epilepticus: without status epilepticus Qualified Code(s): G40.909 - Epilepsy, unspecified, not intractable, without status epilepticus Condition: Stable Prescriptions: No Action fluticasone propion-salmeterol [Advair Diskus] 100-50 mcg/dose blister with device 1 inh INHALATION BID Qty: 60 RF: 5 cetirizine [Zyrtec] 10 mg tablet 10 mg PO DAILY Qty: 30 RF: 5 carbamazepine 200 mg capsule, ER multiphase 12 hr 400 mg PO BEDTIME RF: 0 desvenlafaxine succinate [Pristiq] 100 mg tablet extended release 24 hr 100 mg PO DAILY Qty: 30 RF: 2 trazodone 50 mg tablet 100 mg PO .HS Qty: 60 RF: 2 hydroxyzine HCl 50 mg tablet 50 mg PO QID PRN (Reason: anxiety) Qty: 120 RF: 2 levetiracetam 500 mg tablet 1,000 mg PO BID Qty: 120 RF: 3 montelukast 10 mg tablet 10 mg PO DAILY Qty: 30 RF: 5 clobazam 20 mg tablet 40 mg PO QPM 30 Days Qty: 60 RF: 5 Discharge Orders: Discharge Order (Routine); Ordered 05/24/20 Ordered By: Ada Skaggs Referrals: Dana Lowe MD [Physician] - 1-3 days Ciera Deng MD [Primary Care Provider] - 1-3 days Discharge Diet: Advance as tolerated Discharge Activity: Increase activity as tolerated Patient Instructions: Epilepsy (ED), Recurrent Seizures Adult (ED) Activity Restrictions/Additional Instructions: Please return to the ER immediately for any of the signs or symptoms listed on your discharge instruction sheets, worsening/changing of your symptoms, you are not getting better as quickly as expected, or for ANY other cause or concerns. No driving, no working at heights, no tub baths, no swimming alone or anything else that would put you at risk should you have another seizure. Discharge Date/Time: 05/24/20 23:30 Coding Level of Care Code ED [employer] Fwd Exam Comprehensive
[2020-05-24] MEDS: sodium chloride 0.9% 1,000 ML 999 ML IV (20:46)
[2020-05-24] MEDS: acetaminophen 500 mg Tablet 1000 MG PO (20:47)
[2020-05-24 20:48] LABS: Basophils % 0.2 %; Hematocrit 32.1 % (37.0-47.0); Hemoglobin 10.7 g/dL (11.5-15.3); Lymphocytes # 0.9 10^3/uL (0.8-4.8); Mean Corpuscular HGB Conc 33.3 g/dL (30.0-36.0); Mean Corpuscular Hemoglobin 29.2 pg (28.0-34.0); Mean Corpuscular Volume 87.5 fL (81-99); Mean Platelet Volume 8.7 fL (7.4-10.4); Monocytes # 0.4 10^3/uL (0.2-0.9); Monocytes % 7.1 %; Neutrophils # 3.82 10^3/uL (1.8-7.7); Neutrophils % 75.5 %; Nucleated Red Blood Cells % 0 %; Platelet Count 246 10^3/cmm (130-400); Red Blood Count 3.67 10^6/uL (4.1-5.3); Red Cell Distribution Width 12.5 % (12.1-15.1); White Blood Count 5.1 10^3/uL (4.0-10.0)
[2020-05-24] MEDS: LORazepam 2 mg/mL INJ 1 mL 1 MG IVP (20:49)
[2020-05-24 20:58] LABS: HCG, Serum Qual Negative (Negative)
[2020-05-24 21:03] LABS: Alanine Aminotransferase 11 U/L (0-33); Albumin Level 4.1 g/dL (3.5-5.2); Alkaline Phosphatase 71 IU/L (35-105); Anion Gap 12.9 (5-19); Aspartate Amino Transferase 20 U/L (0-32); Blood Urea Nitrogen 4 mg/dL (6-20); Calcium 8.7 mg/dL (8.5-10.5); Carbon Dioxide 25 mmol/L (22-29); Chloride 97 mmol/L (98-107); Globulin 2.4 g/dL (1.3-4.6); Glomerular Filtration Rate 69.7 mL/min (90-130); Glucose 99 mg/dL (65-115); Magnesium 1.9 mg/dL (1.7-2.3); Osmolality Calculated 269 mOsm/kg (285-295); Potassium 3.9 mmol/L (3.5-5.1); Sodium 131 mmol/L (136-145); Total Bilirubin 0.2 mg/dL (0.15-1.2); Total Protein 6.5 g/dL (6.6-8.7)
[2020-05-24] MEDS: ipratropium-albuterol 3 mL Neb INHALATION (21:04)
[2020-05-24 21:09] VITALS: PULSE 78; RESP 20; O2SAT 98
[2020-05-24 21:11] VITALS: PULSE 77
[2020-05-24 22:16] LABS: Add Urine Microscopic? NO
[2020-05-24 22:38] LABS: Bilirubin Urine Neg (Negative); Blood Urine Neg (Negative); Glucose Urine UA Norm (Normal); Ketones Urine Negative (Negative); Leukocyte Esterase Urine Negative (Negative); Nitrate Urine Negative (Negative); Protein Urine Neg (Negative); Urine Appearance Clear (CLEAR); Urine Color Yellow (Yellow); Urobilinogen Urine Norm (Negative); pH Urine 7 (5-7)
[2020-05-24 23:00] VITALS: BP 112/68; PULSE 88; RESP 16; O2SAT 98
--- NOTE | 2020-05-26 13:58 | DCPLANNER ---
finance manager had message to schedule a follow up appointment for patient with neurology. Patient has a follow up appointment scheduled for Sunday, June 07, 2020 at 1:[address] Lowe.
== END 2020-05-24 23:30 | disposition home or self-care (01) ==
PROVIDERS: Emergency Provider Emergency Medicine; Family Provider Family Medicine; PCP Family Medicine
DX: G40.909 Epilepsy, unspecified, not intractable, without status epilepticus (principal)
CPT/HCPCS: 12345; 71045; 80053; 81003; 83735; 84703; 85025; 94640; 96360; 96374; 96375; 99284; J2060; J7030

== ENCOUNTER → 2020-05-26 08:08 | Outpatient (BNVA) | payer MEDICAID, SELFPAY | PROVIDERS: Family Provider Family Medicine; PCP Family Medicine; Visit Provider Counselor Mental Health | DX: F33.41 Major depressive disorder, recurrent, in partial remission (principal); F41.1 Generalized anxiety disorder; G40.909 Epilepsy, unspecified, not intractable, without status epilepticus | CPT/HCPCS: 90834 ==

== ENCOUNTER → 2020-06-07 09:24 | Outpatient (BNVA) | payer MEDICAID, SELFPAY | PROVIDERS: Family Provider Family Medicine; PCP Family Medicine; Visit Provider Counselor Mental Health | DX: G40.909 Epilepsy, unspecified, not intractable, without status epilepticus (principal) | CPT/HCPCS: 95972 ==

== ENCOUNTER → 2020-06-15 09:06 | Outpatient (BNVA) | payer MEDICAID, SELFPAY | PROVIDERS: Family Provider Family Medicine; PCP Family Medicine; Visit Provider Counselor Mental Health | DX: F41.1 Generalized anxiety disorder (principal); F33.1 Major depressive disorder, recurrent, moderate; F60.9 Personality disorder, unspecified | CPT/HCPCS: 90834 ==

== ENCOUNTER → 2020-06-22 08:55 | Outpatient (BNVA) | payer MEDICAID, SELFPAY ==
[2020-06-20 13:28] VITALS: BP 112/68; BMI 26.4
== END ==
PROVIDERS: Family Provider Family Medicine; PCP Family Medicine; Visit Provider Counselor Mental Health
DX: F41.1 Generalized anxiety disorder (principal); F33.1 Major depressive disorder, recurrent, moderate; F60.9 Personality disorder, unspecified
CPT/HCPCS: 90834

== ENCOUNTER → 2020-06-30 08:37 | Outpatient (BNVA) | payer MEDICAID, SELFPAY ==
[2020-06-20 13:28] VITALS: BP 112/68; BMI 26.4
== END ==
PROVIDERS: Family Provider Family Medicine; PCP Family Medicine; Visit Provider Counselor Mental Health
DX: F41.1 Generalized anxiety disorder (principal); F33.1 Major depressive disorder, recurrent, moderate; F60.9 Personality disorder, unspecified
CPT/HCPCS: 90834

== ENCOUNTER → 2020-07-08 14:00 | Outpatient (BNVA) | payer MEDICAID, SELFPAY ==
[2020-06-20 13:28] VITALS: BP 112/68; BMI 26.4
== END ==
PROVIDERS: Family Provider Family Medicine; Visit Provider Counselor Mental Health
DX: F41.1 Generalized anxiety disorder (principal); F33.1 Major depressive disorder, recurrent, moderate
CPT/HCPCS: 90834

== ENCOUNTER → 2020-07-14 08:44 | Outpatient (BNVA) | payer MEDICAID, SELFPAY ==
[2020-06-20 13:28] VITALS: BP 112/68; BMI 26.4
== END ==
PROVIDERS: Family Provider Family Medicine; PCP Family Medicine; Visit Provider Psychiatry & Neurology Psychiatry
DX: F41.1 Generalized anxiety disorder (principal); F33.1 Major depressive disorder, recurrent, moderate; F60.9 Personality disorder, unspecified
CPT/HCPCS: 99213

== ENCOUNTER → 2021-01-13 09:37 | Outpatient (BNVA) | payer MEDICAID, SELFPAY ==
[2020-06-20 13:28] VITALS: BP 112/68; BMI 26.4
== END ==
PROVIDERS: Family Provider Family Medicine; Visit Provider Counselor Mental Health
DX: F41.1 Generalized anxiety disorder (principal); F33.1 Major depressive disorder, recurrent, moderate; F60.9 Personality disorder, unspecified
CPT/HCPCS: 90832

== ENCOUNTER 2021-04-07 20:16 | Emergency (ER) | payer MEDICAID, SELFPAY ==
[2020-06-20 13:28] VITALS: BP 112/68; BMI 26.4
--- NOTE | 2021-04-07 20:32 | XRR_ITS ---
PROCEDURE INFORMATION: Exam: XR Chest Exam date and time: 04/07/2021 8:32 PM Age: 41 years old Clinical indication: Cough; Prior surgery; Surgery date: 6+ months; Surgery type: Pacer; Patient HX: Covid+ TECHNIQUE: Imaging protocol: XR of the chest. Views: 1 view. COMPARISON: CR XR chest 1V portable [id number] 05/24/2020 8:32 PM FINDINGS: Lungs: No CHF/pulmonary edema. Visible lungs appear essentially clear. Pleural spaces: No visible pneumothorax. No definite pleural fluid. Heart/Mediastinum: Heart size is within normal limits. Bones/joints: Old fracture with surgical fixation involving the proximal left humerus. Presumed old fractures of the posterior left 8th and 9th ribs. Other findings: Some limitations due to patient rotation. XR/XR chest 1V portable [id number] IMPRESSION: 1. No definite CHF or pneumonia. 2. Other findings discussed above.
[2021-04-07 21:12] VITALS: BP 92/66; PULSE 78; RESP 16; TEMP 36.6; O2SAT 100
[2021-04-07 21:24] VITALS: PULSE 77; RESP 16; TEMP 36.6; O2SAT 99
--- NOTE | 2021-04-07 21:25 | ED_ITS ---
HPI - COVID General: Chief Complaint: COVID symptoms Stated Complaint: COVID Time Seen by Provider: 04/07/21 21:13 Triage information: Has fever, cough or shortness of breath . Exposure to COVID + person last 14 days History of Present Illness: HPI Narrative: 41-year-old female with probable COVID-19. Patient reports cough with some sinus congestion, patient also has been having some nausea, decreased oral intake, and some diarrhea. Patient reports illness for about 5 days. Patient reports positive exposure to her mother and to her daughter who both tested positive. 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 Major depressive disorder, recurrent, moderate Partial epilepsy secondarily generalised Unspecified personality disorder Surgical History History of dental surgery Status post VNS (vagus nerve stimulator) placement Family History Father Diabetes Hypertension Mother Hypertension Social History Smoking and tobacco status: never smoked Female Reproductive History: Date of last menstrual period: 10/25/19 Physical Exam Const: COMMON NORMALS: no acute distress and patient oriented x3 GENERAL APPEARANCE: cooperative HENMT: COMMON NORMALS: normocephalic, TM's normal bilaterally and Normal external nose present HEAD & SCALP: normal to inspection and normocephalic NOSE: Normal external nose present TYMPANIC MEMBRANE: TM's normal bilaterally MOUTH: Normal oral and palatal mucosa present THROAT: posterior oropharynx normal Eye: GENERAL EYE: appearance normal, both eyes and all related structures Neck/C-Spine: COMMON NORMALS: full ROM Lymph: LYMPHATIC: no lymphadenopathy noted Chest: COMMONS NORMALS: normal inspection of the chest Resp: COMMON NORMALS: normal respiratory effort EFFORT & INSPECTION: Yes able to speak in complete sentences AUSCULTATION: rhonchi (anterior mild) Cardio: COMMON NORMALS: regular rate and regular rhythm RATE: regular rate RHYTHM: regular rhythm GI: COMMON NORMALS: non-tender : COMMON NORMALS: Yes no CVA tenderness BLADDER/KIDNEY EXAM: Yes no CVA tenderness Back/Pelvis: COMMON NORMALS: no CVA tenderness and thoracic and lumbar spine normal to inspection Extremity: COMMON NORMALS: normal to inspection Neuro: COMMON NORMALS: patient oriented x3 and moves all extremities Psych: COMMON NORMALS: mental status grossly normal and cooperative Skin: COMMON NORMALS: no rashes or lesions noted GENERAL SKIN EXAM: no rashes or lesions noted Course Vital Signs: Vital signs: Vital Signs Temperature 97.9 F 04/07/21 21:24 Pulse Rate 77 04/07/21 21:24 Respiratory Rate 16 04/07/21 21:24 Blood Pressure 92/66 04/07/21 21:12 Pulse Oximetry 99 04/07/21 21:24 MDM - COVID MDM Narrative: Medical decision making narrative: 41-year-old female comes in today for concerns of congestion in her chest. Patient has been ill for about 1 week. Both her mother and her daughter were both positive for COVID-19. On exam patient appears mildly unwell but not toxic. Skin is warm and dry. Respirations are even lungs have some mild rhonchi in the anterior giraldo. Skin is warm and dry vital signs are normal. Differential diagnosis includes but not limited to pneumonia, bronchitis, COVID-19, dehydration. COVID-19 test was negative. Chest x-ray was negative for any pneumonia. Patient was given 1 L of IV fluids for concerns of dehydration since patient's had as she reports lots of watery stools, and blood pressure was mildly soft with a 98 systolic. Pulse oxygen was 100%. I will keep patient on her routine medication add albuterol to her regimen to use as needed for shortness of breath or wheezing. Patient was also given some Zofran tablets to use as needed for nausea. Encourage fluids and follow-up with primary care. Covid PCR test was sent to outpatient lab. Lab Data: Labs: Lab Results 04/07/21 Range/Units 21:16 SARS-CoV-2 Ag (Rap id) Negative (Negative) COVID Results: SARS-CoV-2 Antigen (Rapid) Negative (Negative) 04/07/21 21:16 04/07/21 Discharge Plan Discharge Patient Disposition: Home Clinical Impression: Bronchitis, Suspected severe acute respiratory syndrome coronavirus 2 (SARS-CoV-2) infection Condition: Stable Prescriptions: New ondansetron HCl 4 mg tablet 4 mg PO Q8H PRN (Reason: nausea and vomiting) Qty: 7 RF: 0 albuterol sulfate 90 mcg/actuation HFA aerosol inhaler 2 inh inhalation Q4H PRN (Reason: shortness of breath or wheezing) Qty: 8.5 RF: 0 No Action fluticasone propion-salmeterol [Advair Diskus] 100-50 mcg/dose blister with device 1 inh INHALATION BID Qty: 60 RF: 5 cetirizine 10 mg tablet See Rx Instructions .ROUTE .COMPLEX Qty: 30 RF: 5 desvenlafaxine succinate [Pristiq] 100 mg tablet extended release 24 hr 100 mg PO DAILY Qty: 30 RF: 2 hydroxyzine HCl 50 mg tablet 50 mg PO QID PRN (Reason: anxiety) Qty: 120 RF: 2 trazodone 50 mg tablet 100 mg PO .HS Qty: 60 RF: 2 carbamazepine 200 mg capsule, ER multiphase 12 hr 400 mg PO .COMPLEX Qty: 90 RF: 2 clobazam 20 mg tablet See Rx Instructions PO .COMPLEX 30 Days Qty: 90 RF: 5 montelukast 10 mg tablet See Rx Instructions .ROUTE .COMPLEX Qty: 30 RF: 3 levetiracetam 500 mg tablet See Rx Instructions .ROUTE .COMPLEX Qty: 120 RF: 0 Discharge Orders: Discharge ED (Routine); Ordered 04/07/21 Ordered By: Davis Lauren Patient Instructions: Viral Syndrome (ED), Opioid Safety Activity Restrictions/Additional Instructions: Drink plenty of fluids. Use ondansetron as needed for nausea. Use albuterol inhaler 2 puffs every 4 hours as needed for short of breath, cough, or wheezing. Follow up primary care as needed. Return to ER for worsening symptoms. Coding Level of Care Code ED [employer] Fwd Exam Comprehensive
[2021-04-07 22:06] LABS: SARS Covid-2 Antigen Negative (Negative)
[2021-04-07] MEDS: ondansetron 2 mg/ML SDV 2 mL 4 MG IVP (22:27)
[2021-04-07] MEDS: sodium chloride 0.9% 1,000 ML 999 ML IV (22:27)
[2021-04-07 22:53] VITALS: O2SAT 99
[2021-04-07 23:06] VITALS: BP 99/66; PULSE 68; RESP 18; TEMP 37.2; O2SAT 100
[2021-04-10 03:07] LABS: Quest SARS-CoV-2 RNA DETECTED (NOT DETECTED)
--- NOTE | 2021-04-11 07:49 | PC.NURSE ---
MESSAGE LEFT FOR PT TO RETURN CALL FOR COVID RESULTS
== END 2021-04-07 23:07 | disposition home or self-care (01) ==
PROVIDERS: Emergency Provider Nurse Practitioner Family
DX: U07.1 COVID-19 (principal); J40 Bronchitis, not specified as acute or chronic
CPT/HCPCS: 71045; 87426; 87635; 96361; 96374; 99284; J2405; J7030

== ENCOUNTER 2021-04-16 02:30 | Emergency (ER) | payer MEDICAID, SELFPAY ==
[2020-06-20 13:28] VITALS: BP 112/68; BMI 26.4
[2021-04-16 02:31] VITALS: BP 95/91; PULSE 75; RESP 18; TEMP 36.9; O2SAT 95; BMI 27.2
--- NOTE | 2021-04-16 03:11 | ED_ITS ---
HPI - Headache General: Chief Complaint: Headache Stated Complaint: COVID +/ MIGRAINE GALLO Time Seen by Provider: 04/16/21 02:42 History of Present Illness: HPI Narrative: 41-year-old female with a history of migraine and seizure disorder. She presents with headache for the last 3 days. She tested positive for Covid, test was on 04/07. She was symptomatic 3 days prior to that. She has not vomited. She has not had diarrhea. She has been nauseated. No vision changes. No weakness. MD elicited complaint: headache and migraine Pertinent past history: other Onset (ago): day(s) (3) Onset description: suddenly Location: diffuse Quality & Timing: aching and throbbing Exacerbating factors: exertion Relieving factors: nothing Context: occurred at rest Associated symptoms: Reports cough, malaise and nausea; Deny chest pain, confusion, diaphoresis, eye pain, eye redness, fever(s), lightheadedness, loss of vision, neck stiffness, photophobia, rash, seizures, short of breath, syncope or vomiting Treatments prior to arrival: none Review of Systems Const: Reports: malaise; Denies: fever(s) or diaphoresis Eyes: Denies: change in vision or blurry vision ENMT: Reports: post nasal drip; Denies: odynophagia, swelling of lips/tongue, change in hearing, epistaxis or sinus pain Card: Denies: chest pain, lightheadedness or syncope Resp: Denies: dyspnea, productive cough, non-productive cough or wheezing GI: Reports: nausea; Denies: vomiting : Denies: dysuria or hematuria Musc: Denies: neck pain or joint warmth Skin/Breast: Denies: rash or erythema Neuro: Denies: confusion Psych: Denies: anxiety PFS ED PFSH: Medical History (Updated 04/16/21 @ 03:16 by Sebastian Cheung DO) Asthma Environmental and seasonal allergies Generalized anxiety disorder 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 Major depressive disorder, recurrent, moderate Partial epilepsy secondarily generalised Unspecified personality disorder Surgical History History of dental surgery Status post VNS (vagus nerve stimulator) placement Family History Father Diabetes Hypertension Mother Hypertension Social History Smoking and tobacco status: never smoked Female Reproductive History: Date of last menstrual period: 03/16/21 Physical Exam Const: COMMON NORMALS: no acute distress, patient oriented x3 and alert GENERAL APPEARANCE: not frail appearing Eye: COMMON NORMALS: Equal, round and reactive pupils present and EOMs intact bilaterally PUPIL: Yes Equal, round and reactive pupils present DIRECT OPHTHALMOSCOPY: No photophobia Chest: COMMONS NORMALS: normal inspection of the chest Resp: COMMON NORMALS: normal respiratory effort, No use of accessory muscles and clear to auscultation bilaterally AUSCULTATION: clear to auscultation bilaterally Cardio: COMMON NORMALS: regular rate and regular rhythm RATE: regular rate RHYTHM: regular rhythm HEART SOUNDS: no murmurs GI: COMMON NORMALS: Normal to inspection, nondistended, normoactive bowel sounds present, Soft to palpation and non-tender PALPATION: Yes Soft to palpation Neuro: NIRMAL COMA SCALE: document GCS findings [place] coma scale eye opening: Spontaneous [place] coma scale verbal response: Orientated [place] coma scale motor response: Obey commands [place] coma scale total score: 15 COMMON NORMALS: patient oriented x3 SENSORIUM/ORIENTATION: Yes alert CRANIAL NERV ES: Yes CN normal except as noted COORDINATION/BALANCE: [id number] test normal SPEECH: speech normal SENSORY EXAM: Yes extremities (Intact) MOTOR EXAM: Pronator motor function not present COORDINATION: [id number] test normal Course Vital Signs: Vital signs: Vital Signs Temperature 98.4 F 04/16/21 02:31 Pulse Rate 75 04/16/21 02:31 Respiratory Rate 21 H 04/16/21 03:25 Blood Pressure 95/91 04/16/21 02:31 Pulse Oximetry 95 04/16/21 02:31 MDM - Headache MDM Narrative: Medical decision making narrative: Inflammatory markers are nor mal. Other labs benign. She will be discharged. Lab Data: Labs: Lab Results 04/16/21 04/16/21 Range/Units 03:23 03:23 WBC 5.9 (4.0-10.0) 10^3/ uL RBC 3.82 L (4.1-5.3) 10^6/u L Hgb 11.6 (11.5-15.3) g/dL Hct 33.7 L (37.0-47.0) % MCV 88.2 (81-99) fl MCH 30.4 (28.0-34.0) pg MCHC 34.4 (30.0-36.0) g/dL RDW 12.1 (12.1-15.1) % Plt Count 287 (130-400) 10^3/c mm MPV 9.1 (7.4-10.4) fL Neut % (Auto) 61.2 % Lymph % (Auto) 27.9 % [place] % (Auto) 8.0 % Eos % (Auto) 2.2 % Baso % (Auto) 0.7 % Neut # (Auto) 3.59 (1.8-7.7) 10^3/u L Lymph # (Auto) 1.6 (0.8-4.8) 10^3/u L [place] # (Auto) 0.5 (0.2-0.9) 10^3/u L Eos # (Auto) 0.1 (0.0-0.8) 10^3/u L Baso # (Auto) 0.0 (0.0-0.1) 10^3/u L Nucleated RBC % (a uto) 0 % Nucleated RBCs # 0.0 /100WBC Sodium 138 (136-145) mmol/L Potassium 4.1 (3.5-5.1) mmol/L Chloride 105 (98-107) mmol/L Carbon Dioxide 24 (22-29) mmol/L Anion Gap 13.1 (5-19) BUN 10 (6-20) mg/dL Creatinine 0.7 (0.5-0.9) mg/dL GFR Calculation 92.7 (90-130) mL/min Glucose 88 (65-115) mg/dL Calculated Osmolal ity 284 L (285-295) mOsm/k g Calcium 8.9 (8.5-10.5) mg/dL Total Bilirubin 0.3 (0.15-1.2) mg/dL AST 12 (0-32) U/L ALT 7 (0-33) U/L Alkaline Phosphata se 116 H (35-105) IU/L C-Reactive Protein 1.1 (0.0-4.9) mg/L Total Protein 6.1 L (6.6-8.7) g/dL Albumin 4.3 (3.5-5.2) g/dL Globulin 1.8 (1.3-4.6) g/dL Procalcitonin 0.02 (0-0.5) ng/mL Discharge Plan Discharge Patient Disposition: Home Clinical Impression: COVID-19 Migraine Qualifiers: Migraine type: unspecified Status migrainosus presence: with status migrainosus Intractability: not intractable Qualified Code(s): G43.901 - Migraine, unspecified, not intractable, with status migrainosus Condition: Stable Prescriptions: No Action fluticasone propion-salmeterol [Advair Diskus] 100-50 mcg/dose blister with device 1 inh INHALATION BID Qty: 60 RF: 5 cetirizine 10 mg tablet See Rx Instructions .ROUTE .COMPLEX Qty: 30 RF: 5 desvenlafaxine succinate [Pristiq] 100 mg tablet extended release 24 hr 100 mg PO DAILY Qty: 30 RF: 2 hydroxyzine HCl 50 mg tablet 50 mg PO QID PRN (Reason: anxiety) Qty: 120 RF: 2 trazodone 50 mg tablet 100 mg PO .HS Qty: 60 RF: 2 carbamazepine 200 mg capsule, ER multiphase 12 hr 400 mg PO .COMPLEX Qty: 90 RF: 2 clobazam 20 mg tablet See Rx Instructions PO .COMPLEX 30 Days Qty: 90 RF: 5 montelukast 10 mg tablet See Rx Instructions .ROUTE .COMPLEX Qty: 30 RF: 3 levetiracetam 500 mg tablet See Rx Instructions .ROUTE .COMPLEX Qty: 120 RF: 0 ondansetron HCl 4 mg tablet 4 mg PO Q8H PRN (Reason: nausea and vomiting) Qty: 7 RF: 0 albuterol sulfate 90 mcg/actuation HFA aerosol inhaler 2 inh inhalation Q4H PRN (Reason: shortness of breath or wheezing) Qty: 8.5 RF: 0 Discharge Orders: Discharge ED (Routine); Ordered 04/16/21 Ordered By: Sebastian Cheung Discharge Diet: Advance as tolerated Discharge Activity: Increase activity as tolerated Patient Instructions: Acute Headache (ED) Activity Restrictions/Additional Instructions: Return for continued fever greater than 101, significant worsening neck stiffness, mental status changes, increase in seizures, other concerning symptoms. 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
[2021-04-16 03:25] VITALS: RESP 21
[2021-04-16] MEDS: morphine 4 mg/mL SDV 1 mL IVP (03:25)
[2021-04-16] MEDS: metoclopramide 5 mg/mL SDV 2 mL 10 MG IVP (03:25)
[2021-04-16] MEDS: ketorolac 30 mg/mL INJ 15 MG IVP (03:26)
[2021-04-16] MEDS: sodium chloride 0.9% 1,000 ML 999 ML IV (03:32)
[2021-04-16 04:09] LABS: Basophils % 0.7 %; Eosinophils # 0.1 10^3/uL (0.0-0.8); Eosinophils % 2.2 %; Hematocrit 33.7 % (37.0-47.0); Hemoglobin 11.6 g/dL (11.5-15.3); Lymphocytes # 1.6 10^3/uL (0.8-4.8); Lymphocytes % 27.9 %; Mean Corpuscular HGB Conc 34.4 g/dL (30.0-36.0); Mean Corpuscular Hemoglobin 30.4 pg (28.0-34.0); Mean Corpuscular Volume 88.2 fl (81-99); Mean Platelet Volume 9.1 fL (7.4-10.4); Monocytes # 0.5 10^3/uL (0.2-0.9); Neutrophils # 3.59 10^3/uL (1.8-7.7); Neutrophils % 61.2 %; Nucleated Red Blood Cells % 0 %; Platelet Count 287 10^3/cmm (130-400); Red Blood Count 3.82 10^6/uL (4.1-5.3); Red Cell Distribution Width 12.1 % (12.1-15.1); White Blood Count 5.9 10^3/uL (4.0-10.0)
[2021-04-16 04:10] VITALS: BP 107/64; PULSE 90; O2SAT 95
[2021-04-16 04:30] LABS: Alanine Aminotransferase 7 U/L (0-33); Albumin Level 4.3 g/dL (3.5-5.2); Alkaline Phosphatase 116 IU/L (35-105); Anion Gap 13.1 (5-19); Aspartate Amino Transferase 12 U/L (0-32); Blood Urea Nitrogen 10 mg/dL (6-20); C Reactive Protein 1.1 mg/L (0.0-4.9); Calcium 8.9 mg/dL (8.5-10.5); Carbon Dioxide 24 mmol/L (22-29); Chloride 105 mmol/L (98-107); Globulin 1.8 g/dL (1.3-4.6); Glomerular Filtration Rate 92.7 mL/min (90-130); Glucose 88 mg/dL (65-115); Osmolality Calculated 284 mOsm/kg (285-295); Potassium 4.1 mmol/L (3.5-5.1); Sodium 138 mmol/L (136-145); Total Bilirubin 0.3 mg/dL (0.15-1.2); Total Protein 6.1 g/dL (6.6-8.7)
[2021-04-16 04:35] LABS: Procalcitonin 0.02 ng/mL (0-0.5)
[2021-04-16 06:12] VITALS: BP 158/87; PULSE 84
--- NOTE | 2021-04-16 06:12 | PC.NURSE ---
pt asleep at this time.
[2021-04-16 06:38] VITALS: BP 93/55; PULSE 66; RESP 13; O2SAT 100
== END 2021-04-16 06:39 | disposition home or self-care (01) ==
PROVIDERS: Emergency Provider Emergency Medicine
DX: G43.901 Migraine, unspecified, not intractable, with status migrainosus (principal); U07.1 COVID-19
CPT/HCPCS: 80053; 84145; 85025; 86140; 96361; 96374; 96375; 99284; J1885; J2270; J2765; J7030

== ENCOUNTER 2021-04-19 18:58 | Inpatient (IN) | payer MEDICAID, SELFPAY ==
[2020-06-20 13:28] VITALS: BP 112/68; BMI 26.4
--- NOTE | 2021-04-19 19:21 | W.ED.PSYCH ---
HPI - Psych General: Chief Complaint: Psychiatric Symptoms Stated Complaint: SUICIDAL/ HOMICIDAL IDEATIONS Time Seen by Provider: 04/19/21 19:21 History of Present Illness: HPI Narrative: 41-year-old female was brought in by EMS for self-harm. Patient had taken some dull scissors and tried to cut her left wrist. Patient has some abrasions to her wrist. But nothing that has caused significant injury. Patient states that she is upset with her mother and her daughter who does not pay attention to her or listen to what she has to say. Patient is also upset with her neurologist wanting to do surgery for her seizures. Patient thinks she has Keppra rage. Patient does admit wanting to hurt herself by any way she can and wants to set fire to her mother or daughter's room. Patient is alert and oriented. Patient responds to questions. Patient has a flat affect. Patient seems like she is more frustrated about not being involved in her care or family life. I think patient feels that she is not an invalid and is tired of being treated as such. 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 Major depressive disorder, recurrent, moderate Partial epilepsy secondarily generalised Unspecified personality disorder Surgical History History of dental surgery Status post VNS (vagus nerve stimulator) placement Family History Father Diabetes Hypertension Mother Hypertension Social History Smoking and tobacco status: never smoked Female Reproductive History: Date of last menstrual period: 03/16/21 Physical Exam Const: COMMON NORMALS: no acute distress and patient oriented x3 GENERAL APPEARANCE: cooperative HENMT: COMMON NORMALS: normocephalic and Normal external nose present HEAD & SCALP: normal to inspection and normocephalic NOSE: Normal external nose present MOUTH: Normal oral and palatal mucosa present THROAT: posterior oropharynx normal Eye: GENERAL EYE: appearance normal, both eyes and all related structures Neck/C-Spine: COMMON NORMALS: full ROM Lymph: LYMPHATIC: no lymphadenopathy noted Chest: COMMONS NORMALS: normal inspection of the chest Resp: COMMON NORMALS: normal respiratory effort EFFORT & INSPECTION: Yes able to speak in complete sentences Cardio: COMMON NORMALS: regular rate and regular rhythm RATE: regular rate RHYTHM: regular rhythm GI: COMMON NORMALS: non-tender : COMMON NORMALS: Yes no CVA tenderness BLADDER/KIDNEY EXAM: Yes no CVA tenderness Back/Pelvis: COMMON NORMALS: no CVA tenderness and thoracic and lumbar spine normal to inspection Extremity: COMMON NORMALS: normal to inspection Neuro: COMMON NORMALS: patient oriented x3 and moves all extremities Psych: COMMON NORMALS: cooperative and speech normal APPEARANCE: Yes unkempt ATTITUDE: Yes calm ACTIVITY/MOTOR BEHAVIOR: Yes appropriate eye contact SPEECH: Yes normal speech MOOD & AFFECT: Yes irritable THOUGHT PROCESS: Circumstantial thought process present THOUGHT CONTENT: Yes Suicidality present and Yes Homicidality present ATTENTION/CONCENTRATION: Yes attention grossly intact MEMORY/COGNITION: Yes memory grossly intact INSIGHT: Fair insight present (Psych) JUDGEMENT: Fair judgement present (Psych) Skin: COMMON NORMALS: no rashes or lesions noted GENERAL SKIN EXAM: no rashes or lesions noted Course ED course: 2049, discussed patient with Dr. Malik, psychiatrist, he agreed to admission of patient to the neuropsychiatric unit for suicidal ideation. Dr. Khan agreed to admit orders for admission. Vital Signs: Vital signs: Vital Signs Temperature 98.6 F 04/19/21 19:24 Pulse Rate 91 04/19/21 19:24 Respiratory Rate 18 04/19/21 19:24 Blood Pressure 101/72 04/19/21 19:24 Pulse Oximetry 95 04/19/21 19:24 MDM - Psych MDM Narrative: Medical decision making narrative: 41-year-old female comes in today with complaints of suicidal ideation and homicidal thoughts. Patient reports she has been having trouble with her daughter and her mother as a ignore her, patient also has been upset with her neurologist not listening to her regarding her seizure care. Patient would wish to be . Patient does have some intentional markings to the left wrist that are very superficial which she reports trying to cut herself with dull scissors. Physical exam is otherwise normal. Patient appears well. Patient appears no acute distress. Differential diagnosis includes suicidal ideation, major depressive disorder, homicidal thought. Laboratory values were unremarkable. Reviewed exam with patient with recommendations for treatment and admission. Patient agreed to plan. Discussed with Dr. Malik who agreed to admission. Dr. Khan was consulted for admission orders. Lab Data: Labs: Lab Results 04/19/21 04/19/21 Range/Units 20:08 20:08 WBC 5.3 (4.0-10.0) 10^3/ uL RBC 4.12 (4.1-5.3) 10^6/u L Hgb 12.5 (11.5-15.3) g/dL Hct 37.6 (37.0-47.0) % MCV 91.3 (81-99) fl MCH 30.3 (28.0-34.0) pg MCHC 33.2 (30.0-36.0) g/dL RDW 12.2 (12.1-15.1) % Plt Count 277 (130-400) 10^3/c mm MPV 9.2 (7.4-10.4) fL Neut % (Auto) 70.4 % Lymph % (Auto) 21.4 % [place] % (Auto) 5.7 % Eos % (Auto) 1.7 % Baso % (Auto) 0.6 % Neut # (Auto) 3.72 (1.8-7.7) 10^3/u L Lymph # (Auto) 1.1 (0.8-4.8) 10^3/u L [place] # (Auto) 0.3 (0.2-0.9) 10^3/u L Eos # (Auto) 0.1 (0.0-0.8) 10^3/u L Baso # (Auto) 0.0 (0.0-0.1) 10^3/u L Nucleated RBC % (a uto) 0 % Nucleated RBCs # 0.0 /100WBC Sodium 135 L (136-145) mmol/L Potassium 4.1 (3.5-5.1) mmol/L Chloride 99 (98-107) mmol/L Carbon Dioxide 25 (22-29) mmol/L Anion Gap 15.1 (5-19) BUN 9 (6-20) mg/dL Creatinine 0.8 (0.5-0.9) mg/dL GFR Calculation 79.4 L (90-130) mL/min Glucose 117 H (65-115) mg/dL Calculated Osmolal ity 280 L (285-295) mOsm/k g Calcium 9.1 (8.5-10.5) mg/dL Total Bilirubin 0.3 (0.15-1.2) mg/dL AST 15 (0-32) U/L ALT 11 (0-33) U/L Alkaline Phosphata se 119 H (35-105) IU/L Total Protein 7.1 (6.6-8.7) g/dL Albumin 4.5 (3.5-5.2) g/dL Globulin 2.6 (1.3-4.6) g/dL Salicylates 0.4 L (3-10) mg/dL Acetaminophen < 5.0 L (10-30) ug/mL Carbamazepine 2.0 L (4.0-12.0) ug/mL Ethyl Alcohol < 10 (0-10) mg/dL Discharge Plan Discharge Patient Disposition: Admitted As Inpatient Clinical Impression: Suicidal ideation, Major depressive disorder, recurrent severe without psychotic features Condition: Stable Coding Level of Care Code ED [employer] for [place] Fwd Exam Comprehensive
[2021-04-19 19:24] VITALS: BP 101/72; PULSE 91; RESP 18; TEMP 37; O2SAT 95; BMI 27.2
[2021-04-19 20:13] LABS: Basophils % 0.6 %; Eosinophils # 0.1 10^3/uL (0.0-0.8); Eosinophils % 1.7 %; Hematocrit 37.6 % (37.0-47.0); Hemoglobin 12.5 g/dL (11.5-15.3); Lymphocytes # 1.1 10^3/uL (0.8-4.8); Lymphocytes % 21.4 %; Mean Corpuscular HGB Conc 33.2 g/dL (30.0-36.0); Mean Corpuscular Hemoglobin 30.3 pg (28.0-34.0); Mean Corpuscular Volume 91.3 fl (81-99); Mean Platelet Volume 9.2 fL (7.4-10.4); Monocytes # 0.3 10^3/uL (0.2-0.9); Monocytes % 5.7 %; Neutrophils # 3.72 10^3/uL (1.8-7.7); Neutrophils % 70.4 %; Nucleated Red Blood Cells % 0 %; Platelet Count 277 10^3/cmm (130-400); Red Blood Count 4.12 10^6/uL (4.1-5.3); Red Cell Distribution Width 12.2 % (12.1-15.1); White Blood Count 5.3 10^3/uL (4.0-10.0)
[2021-04-19 20:35] LABS: Alanine Aminotransferase 11 U/L (0-33); Albumin Level 4.5 g/dL (3.5-5.2); Alkaline Phosphatase 119 IU/L (35-105); Anion Gap 15.1 (5-19); Aspartate Amino Transferase 15 U/L (0-32); Blood Urea Nitrogen 9 mg/dL (6-20); Calcium 9.1 mg/dL (8.5-10.5); Carbon Dioxide 25 mmol/L (22-29); Chloride 99 mmol/L (98-107); Globulin 2.6 g/dL (1.3-4.6); Glomerular Filtration Rate 79.4 mL/min (90-130); Glucose 117 mg/dL (65-115); Osmolality Calculated 280 mOsm/kg (285-295); Potassium 4.1 mmol/L (3.5-5.1); Salicylate 0.4 mg/dL (3-10); Sodium 135 mmol/L (136-145); Total Bilirubin 0.3 mg/dL (0.15-1.2); Total Protein 7.1 g/dL (6.6-8.7)
[2021-04-19 20:40] LABS: Acetaminophen < 5.0 ug/mL (10-30); Alcohol Level < 10 mg/dL (0-10)
[2021-04-19 20:58] VITALS: BP 110/79; PULSE 58; RESP 18; O2SAT 99
[2021-04-19 21:00] LABS: HCG Qualitative Urine. Negative (Negative)
[2021-04-19 21:16] LABS: Cocaine Screen Urine Negative (Negative); PCP Screen Urine Negative (Negative); THC Screen Urine Negative (Negative)
[2021-04-19 21:16] LABS: Thyroid Stimulating Hormone 0.91 uIU/mL (0.27-4.20)
[2021-04-19 21:17] LABS: Amphetamines Screen Urine Negative (Negative); Barbiturates Screen Urine Negative (Negative); Benzodiazepines Screen Urine Positive (Negative); Opiate Screen Urine Negative (Negative)
[2021-04-19 21:55] VITALS: BP 101/69; PULSE 74; RESP 16; O2SAT 99
[2021-04-19 22:19] VITALS: BP 95/78; PULSE 99; RESP 18; TEMP 36.3; O2SAT 98
[2021-04-20] MEDS: acetaminophen 325 mg Tablet 650 MG PO ×4 (00:22→21:22)
[2021-04-20] MEDS: hyDROXYzine 25 mg Capsule 50 MG PO ×2 (00:23→21:19)
[2021-04-20] MEDS: levETIRAcetam 500 mg Tablet 1000 MG PO ×3 (00:23→21:18)
[2021-04-20] MEDS: trazodone 50 mg Tablet 100 MG PO ×2 (00:23→21:17)
[2021-04-20] MEDS: CLOBAZAM 20 MG 20 EACH PO (00:45)
[2021-04-20 06:00] VITALS: BP 74/51; PULSE 77; RESP 18; TEMP 36.7; O2SAT 97
[2021-04-20] MEDS: ascorbic acid 500 mg Tablet PO (08:32)
[2021-04-20] MEDS: montelukast sodium 10 mg Tablet PO (08:32)
[2021-04-20 14:00] VITALS: BP 65/41; PULSE 73; RESP 18; TEMP 36.8; O2SAT 98
--- NOTE | 2021-04-20 14:54 | PC.NURSE ---
CHARGE NURSE NOTIFIED ABOUT LOW BLOOD PRESSURE. WILL CONTINUE TO MONITOR.
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
[2021-04-20 20:28] VITALS: BP 71/45; PULSE 80; RESP 17; TEMP 37.7; O2SAT 98
--- NOTE | 2021-04-20 21:25 | PC.NURSE ---
Patient requested meds for sleep and anxiety. Scheduled 100mg Trazodone PO given. 50mg Vistaril PO given.
[2021-04-21] MEDS: acetaminophen 325 mg Tablet 650 MG PO ×4 (04:24→21:54)
[2021-04-21 06:00] VITALS: BP 92/60; PULSE 79; RESP 17; TEMP 36.7; O2SAT 98
[2021-04-21] MEDS: OLANZapine 5 mg ODT PO (08:13)
[2021-04-21] MEDS: montelukast sodium 10 mg Tablet PO (08:15)
[2021-04-21] MEDS: ascorbic acid 500 mg Tablet PO (08:16)
[2021-04-21] MEDS: levETIRAcetam 500 mg Tablet 1000 MG PO ×2 (08:16→21:54)
[2021-04-21] MEDS: CLOBAZAM 20 MG 20 EACH PO (08:17)
[2021-04-21 14:00] VITALS: BP 92/60; PULSE 79; RESP 17; TEMP 36.7; O2SAT 98
--- NOTE | 2021-04-21 17:01 | P.PN_ITS ---
Subjective NPU Subjective: Interval history: Donna presents today struggling with what the plan is next after having some bad news. PFA was issued against her after the interaction with her mother which she reports that she does not understand what the possible grounds were. We discussed the hearing date so that she could present her side of the story but we discussed the fact that there will be things she will need to manage prior to that from the standpoint of where to go after discharging and things cycle manager. He was very saddened by her new situation. Mental Status Exam MSE Comments: This is a overweight white female in [facility] scrubs with limited grooming and eye contact. No abnormal movement except for psychomotor retardation. Cooperative with exam in mild to moderate distress. Speech was decreased rate and volume. Mood described as feeling depressed, affect subdued. Thought process organized, thought content: Patient endorses some suicidal but denied homicidal ideation, there are no delusions noted but she endorsed paranoia, she denied auditory or visual hallucinations. Attention and concentration appear intact and memory was most reliable but none were formally tested. Alert and oriented x3. Insight and judgment are limited and impulse control is impaired. Vitals/I&O/Wt Last Vital Signs Temp 97.9 F 04/21/21 21:54 Pulse 78 04/21/21 21:54 Resp 17 04/21/21 21:54 BP 101/70 04/21/21 21:54 Pulse Ox 98 04/21/21 21:54 Data NPU : 04/19/21 20:08 04/19/21 20:08 A&P Assessment and plan (1) Parent-child relational problem: Status: Acute (2) Migraine: Status: Acute Qualifiers: Intractability: not intractable Migraine type: unspecified Status migrainosus presence: with status migrainosus Qualified Code(s): G43.901 - Migraine, unspecified, not intractable, with status migrainosus (3) COVID-19: Status: Acute (4) Suicidal ideation: Status: Acute (5) Personality disorder: Status: Acute (6) Generalized anxiety disorder: Status: Acute (7) Major depressive disorder, recurrent severe without psychotic features: Status: Acute Additional A&P Information This is a 41-year-old white female with a long history of personality disorder likely cluster B, depression and anxiety and interpersonal relationship problems who presents after a suicidal gesture endorsing suicidal thinking. 1. Continue current medication. 2. Continue every 15 minute checks for safety. 3. Encourage individual, group and milieu therapies. For. We will encourage her to explore some medication options for better mood regulation.. Involuntary Hold Information 96 Hour Hold: 96 Hour Involuntary Admission: No Attestations NPU Medical Necessity Statement*: Inpatient hospitalization is medically necessary and the clinically appropriate intervention at this time. We will monitor medications and make changes as indicated. Likely length of stay 3 to 5 days. Coding Level of Care Code Acute Product Sales Representative for [place] Fwd Diagnoses Parent-child relational problem Z62.820 Migraine G43.901 Intractability: not intractable Migraine type: unspecified Status migrainosus presence: with status migrainosus COVID-19 U07.1 Suicidal ideation R45.851 Personality disorder F60.9 Generalized anxiety disorder F41.1 Major depressive disorder, recurrent severe without psychotic features F33.2
[2021-04-21] MEDS: hyDROXYzine 25 mg Capsule 50 MG PO (21:53)
[2021-04-21 21:54] VITALS: BP 101/70; PULSE 78; RESP 17; TEMP 36.6; O2SAT 98
[2021-04-21] MEDS: trazodone 50 mg Tablet 100 MG PO (21:55)
[2021-04-22] MEDS: acetaminophen 325 mg Tablet 650 MG PO ×2 (05:15→19:49)
[2021-04-22 06:00] VITALS: BP 85/56; PULSE 69; RESP 16; TEMP 36.6; O2SAT 97
[2021-04-22] MEDS: ascorbic acid 500 mg Tablet PO (08:43)
[2021-04-22] MEDS: montelukast sodium 10 mg Tablet PO (08:43)
[2021-04-22] MEDS: levETIRAcetam 500 mg Tablet 1000 MG PO ×2 (08:43→21:16)
[2021-04-22] MEDS: CLOBAZAM 20 MG 20 EACH PO (08:54)
[2021-04-22 14:00] VITALS: BP 85/56; PULSE 69; RESP 16; TEMP 36.6; O2SAT 97
[2021-04-22 15:10] VITALS: BP 92/63; PULSE 92; RESP 18; TEMP 37; O2SAT 98
--- NOTE | 2021-04-22 17:14 | PM.NPN ---
Subjective NPU Subjective: Interval history: Donna continues to be somewhat withdrawn and upset surrounding the changes in her situation. She reports that she is frustrated because she thinks she is being unfairly labeled when her behaviors were not presently getting painted. She acknowledges that her behavior was inappropriate and she needs to be able to manage it but she still feels that the situation she finds her self and is unfair. Mental Status Exam MSE Comments: This is a overweight white female in [facility] scrubs with limited grooming and eye contact. No abnormal movement except for psychomotor retardation. Cooperative with exam in mild distress. Speech was decreased rate and volume. Mood described as feeling frustrated, affect subdued. Thought process organized, thought content: Patient endorses some suicidal but denied homicidal ideation, there are no delusions noted but she endorsed paranoia, she denied auditory or visual hallucinations. Attention and concentration appear intact and memory was most reliable but none were formally tested. Alert and oriented x3. Insight and judgment are limited and impulse control is impaired. Vitals/I&O/Wt Last Vital Signs Temp 97.9 F 04/22/21 14:00 Pulse 69 04/22/21 14:00 Resp 16 04/22/21 14:00 BP 85/56 04/22/21 14:00 Pulse Ox 97 04/22/21 14:00 Weight last 48 hrs Weight 85.275 kg Data NPU : 04/19/21 20:08 04/19/21 20:08 A&P Additional A&P Information (1) Parent-child relational problem: (2) Migraine: (3) COVID-19: (4) Suicidal ideation: (5) Personality disorder: (6) Generalized anxiety disorder: (7) Major depressive disorder, recurrent severe without psychotic features: Additional A&P Information This is a 41-year-old white female with a long history of personality disorder likely cluster B, depression and anxiety and interpersonal relationship problems who presents after a suicidal gesture endorsing suicidal thinking. 1. Continue current medication. 2. Continue every 15 minute checks for safety. 3. Encourage individual, group and milieu therapies. 4. We will continue to encourage her to explore some medication options for better mood regulation.. Involuntary Hold Information 96 Hour Hold: 96 Hour Involuntary Admission: No Attestations NPU Medical Necessity Statement*: Inpatient hospitalization is medically necessary and the clinically appropriate intervention at this time. We will monitor medications and make changes as indicated. Likely length of stay 2-4 days. Coding Level of Care Code Acute Tread Tuber Machine Operator for [place] Casey
[2021-04-22] MEDS: trazodone 50 mg Tablet 100 MG PO (21:16)
[2021-04-22 22:00] VITALS: BP 94/66; PULSE 88; RESP 17; TEMP 36.6; O2SAT 97
[2021-04-23] MEDS: acetaminophen 325 mg Tablet 650 MG PO ×2 (02:33→10:58)
[2021-04-23 05:54] VITALS: BP 96/63; PULSE 71; RESP 18; TEMP 37.1; O2SAT 99
[2021-04-23] MEDS: ascorbic acid 500 mg Tablet PO (10:03)
[2021-04-23] MEDS: montelukast sodium 10 mg Tablet PO (10:04)
[2021-04-23] MEDS: levETIRAcetam 500 mg Tablet 1000 MG PO ×2 (10:04→22:46)
[2021-04-23] MEDS: CLOBAZAM 20 MG 20 EACH PO (10:08)
--- NOTE | 2021-04-23 10:14 | P.PN_ITS ---
Subjective NPU Subjective: Interval history: Donna continues her isolative behavior on the unit. Today she reports her being withdrawn as a product of having a headache. She has a migraine at home she sits in the dark and was moving. The identified in her medication at night was in the sort of glitch because of how it was put in as an order. And that was fixed to hopefully we discussed her having some relief as far as her headache. But otherwise she denies taking anything and did not really continue the conversation. She did express wanting to work with the treatment team in the morning about working out some logistics as to where she would stay after discharge. Mental Status Exam MSE Comments: This is a overweight white female in [facility] scrubs with limited grooming and eye contact. No abnormal movement except for psychomotor retardation. Cooperative with exam in mild to moderate distress. Speech was decreased rate and volume. Mood described as I am hurting, affect subdued. Thought process organized, thought content: Patient endorses some suicidal but denied homicidal ideation, there are no delusions noted but she endorsed paranoia, she denied auditory or visual hallucinations. Attention and concentration appear intact and memory was most reliable but none were formally tested. Alert and oriented x3. Insight and judgment are limited and impulse control is impaired. Vitals/I&O/Wt Last Vital Signs Temp 98.7 F 04/23/21 05:54 Pulse 71 04/23/21 05:54 Resp 18 04/23/21 05:54 BP 96/63 04/23/21 05:54 Pulse Ox 99 04/23/21 05:54 Weight last 48 hrs Weight 85.275 kg Data NPU : 04/19/21 20:08 04/19/21 20:08 A&P Additional A&P Information (1) Parent-child relational problem: (2) Migraine: (3) COVID-19: (4) Suicidal ideation: (5) Personality disorder: (6) Generalized anxiety disorder: (7) Major depressive disorder, recurrent severe without psychotic features: Additional A&P Information This is a 41-year-old white female with a long history of personality disorder likely cluster B, depression and anxiety and interpersonal relationship problems who presents after a suicidal gesture endorsing suicidal thinking. 1. Continue current medication. 2. Continue every 15 minute checks for safety. 3. Encourage individual, group and milieu therapies. 4. We will continue to encourage her to explore some medication options for better mood regulation. Involuntary Hold Information 96 Hour Hold: 96 Hour Involuntary Admission: No Attestations NPU Medical Necessity Statement*: Inpatient hospitalization is medically necessary and the clinically appropriate intervention at this time. We will monitor medications and make changes as indicated. Likely length of stay 1-3 days. Coding Level of Care Code Acute Software Sales Manager for [place] Casey
[2021-04-23 14:00] VITALS: BP 97/62; PULSE 78; RESP 18; TEMP 37; O2SAT 96
[2021-04-23 21:03] VITALS: BP 108/75; PULSE 82; RESP 19; TEMP 36.6; O2SAT 94
[2021-04-23] MEDS: trazodone 50 mg Tablet 100 MG PO (22:44)
[2021-04-23] MEDS: hyDROXYzine 25 mg Capsule 50 MG PO (22:45)
[2021-04-23] MEDS: NON-FORMULARY MEDICATION (Clobazam 20 mg tablet) 40 EACH PO (22:46)
[2021-04-24 06:00] VITALS: BP 93/61; PULSE 78; RESP 18; TEMP 36.8; O2SAT 96
[2021-04-24] MEDS: CLOBAZAM 20 MG 20 EACH PO (10:15)
[2021-04-24] MEDS: ascorbic acid 500 mg Tablet PO (10:15)
[2021-04-24] MEDS: montelukast sodium 10 mg Tablet PO (10:15)
[2021-04-24] MEDS: levETIRAcetam 500 mg Tablet 1000 MG PO (10:17)
[2021-04-24 14:00] VITALS: BP 103/71; PULSE 81; RESP 18; TEMP 36.8; O2SAT 97
--- NOTE | 2021-04-24 15:27 | P.PN_ITS ---
Subjective NPU Subjective: Interval history: Donna presents today continuing to isolate and essentially laying in her bed. She is upset and rightfully so as she identifies that she is in a untenable situation wherein she has nowhere to go. She is reached out to a couple family members without success in getting someone to allow her to stay for any period of time. We have explored SOC. Discussed the likelihood of discharge tomorrow. Mental Status Exam MSE Comments: This is a overweight white female in [facility] scrubs with limited grooming and eye contact. No abnormal movement except for psychomotor retardation. Cooperative with exam in mild to moderate distress. Speech was decreased rate and volume. Mood described I am tired, affect subdued. Thought process organized, thought content: Patient endorses some suicidal but denied homicidal ideation, there are no delusions noted but she endorsed paranoia, she denied auditory or visual hallucinations. Attention and concentration appear intact and memory was most reliable but none were formally tested. Alert and oriented x3. Insight and judgment are limited and impulse control is limited. Vitals/I&O/Wt Last Vital Signs Temp 98.3 F 04/24/21 14:00 Pulse 81 04/24/21 14:00 Resp 18 04/24/21 14:00 BP 103/71 04/24/21 14:00 Pulse Ox 97 04/24/21 14:00 Weight last 48 hrs Weight 85.275 kg Data NPU : 04/19/21 20:08 04/19/21 20:08 A&P Additional A&P Information (1) Parent-child relational problem: (2) Migraine: (3) COVID-19: (4) Suicidal ideation: (5) Personality disorder: (6) Generalized anxiety disorder: (7) Major depressive disorder, recurrent severe without psychotic features: Additional A&P Information This is a 41-year-old white female with a long history of personality disorder likely cluster B, depression and anxiety and interpersonal relationship problems who presents after a suicidal gesture endorsing suicidal thinking. 1. Continue current medication. 2. Continue every 15 minute checks for safety. 3. Encourage individual, group and milieu therapies. 4. We will continue to encourage her to explore some medication options for better mood regulation. Involuntary Hold Information 96 Hour Hold: 96 Hour Involuntary Admission: No Attestations NPU Medical Necessity Statement*: Inpatient hospitalization is medically necessary and the clinically appropriate intervention at this time. We will monitor medications and make changes as indicated. Likely length of stay 1-3 days. Coding Level of Care Code Acute Area Intelligence Technician for [place] Casey
[2021-04-24] MEDS: hyDROXYzine 25 mg Capsule 50 MG PO (21:02)
[2021-04-24] MEDS: trazodone 50 mg Tablet 100 MG PO (21:03)
--- NOTE | 2021-04-24 21:05 | PC.NURSE ---
Vistaril 50 mg given for anxiety
--- NOTE | 2021-04-24 21:20 | PC.NURSE ---
Patient very distraught / tearful. Patient refused her Keppra and Onfi. Nurse attempted to algaaciq patient regarding seizure medication and the importance of maintaining therapeutic levels. Patient was non-receptive continuing to refuse meds.
[2021-04-24 22:00] VITALS: BP 92/58; PULSE 93; RESP 16; TEMP 36.4; O2SAT 96
[2021-04-25] MEDS: acetaminophen 325 mg Tablet 650 MG PO (02:03)
[2021-04-25] MEDS: levETIRAcetam 500 mg Tablet 1000 MG PO (03:40)
[2021-04-25] MEDS: NON-FORMULARY MEDICATION (Clobazam 20 mg tablet) 40 EACH PO (03:40)
[2021-04-25 06:00] VITALS: BP 95/55; PULSE 75; RESP 16; TEMP 36.7; O2SAT 97
[2021-04-25] MEDS: CLOBAZAM 20 MG 20 EACH PO (08:20)
[2021-04-25] MEDS: montelukast sodium 10 mg Tablet PO (08:20)
[2021-04-25] MEDS: ascorbic acid 500 mg Tablet PO (08:20)
--- NOTE | 2021-04-25 12:27 | NPU.GN ---
[facility] Group Topic: two true one False General Mood of Group: Patient refused group today, she had been going but was too tired this morning.
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
[2021-04-25 14:27] VITALS: BP 95/55; PULSE 75; RESP 16; TEMP 36.7; O2SAT 97
== END 2021-04-25 15:33 | disposition home or self-care (01) | DRG 885 ==
LOC: ER 21:14 → NP 21:39
PROVIDERS: Emergency Medicine; Admitting Provider Psychiatry & Neurology Psychiatry; Emergency Provider Nurse Practitioner Family; Visit Provider Psychiatry & Neurology Psychiatry
DX: F33.2 Major depressive disorder, recurrent severe without psychotic features (principal); R45.851 Suicidal ideations; G40.209 Localization-related (focal) (partial) symptomatic epilepsy and epileptic syndromes with complex partial seizures, not intractable, without status epilepticus; F41.1 Generalized anxiety disorder; G43.901 Migraine, unspecified, not intractable, with status migrainosus; F60.89 Other specific personality disorders; E66.3 Overweight; Z68.27 Body mass index [BMI] 27.0-27.9, adult; Z62.811 Personal history of psychological abuse in childhood; Z63.8 Other specified problems related to primary support group; Z86.16 Personal history of COVID-19
CPT/HCPCS: 80053; 80156; 80306; 80307; 81025; 84443; 85025; 99285

== ENCOUNTER → 2021-04-28 10:13 | Outpatient (BNVA) | payer MEDICAID, SELFPAY ==
[2020-06-20 13:28] VITALS: BP 112/68; BMI 26.4
== END ==
PROVIDERS: Visit Provider Counselor Mental Health
DX: F41.1 Generalized anxiety disorder (principal); F33.1 Major depressive disorder, recurrent, moderate
CPT/HCPCS: 90834

== ENCOUNTER → 2021-05-02 07:13 | Outpatient (BNVA) | payer MEDICAID, SELFPAY ==
[2020-06-20 13:28] VITALS: BP 112/68; BMI 26.4
== END ==
PROVIDERS: Visit Provider Psychiatry & Neurology Psychiatry
DX: F60.3 Borderline personality disorder (principal); F41.1 Generalized anxiety disorder; F33.2 Major depressive disorder, recurrent severe without psychotic features
CPT/HCPCS: 99213

== ENCOUNTER → 2021-05-05 07:43 | Outpatient (BNVA) | payer MEDICAID, SELFPAY ==
[2020-06-20 13:28] VITALS: BP 112/68; BMI 26.4
== END ==
PROVIDERS: Visit Provider Counselor Mental Health
DX: F41.1 Generalized anxiety disorder (principal); F33.1 Major depressive disorder, recurrent, moderate; F60.9 Personality disorder, unspecified
CPT/HCPCS: 90834

== ENCOUNTER → 2021-05-31 08:31 | Outpatient (BNVA) | payer MEDICAID, SELFPAY ==
[2020-06-20 13:28] VITALS: BP 112/68; BMI 26.4
== END ==
PROVIDERS: Visit Provider Counselor Mental Health
DX: F41.1 Generalized anxiety disorder (principal); F33.1 Major depressive disorder, recurrent, moderate; F60.9 Personality disorder, unspecified
CPT/HCPCS: 90834

== ENCOUNTER 2021-06-05 10:12 | Outpatient (CLI) | payer MEDICAID, SELFPAY ==
[2020-06-20 13:28] VITALS: BP 112/68; BMI 26.4
--- NOTE | 2021-06-05 10:18 | XR_ITS ---
WS: [id number] Left shoulder, 3 views, 06/05/2021 Clinical Data: CLOSED 2 PART DISPLACED FRACTURE OF NECK OF LEFT HUMERUS WIT Comparison: None. Findings: The fracture of the surgical neck of left humerus is repaired with a plate attached with multiple ort hopedic screws. The fracture line shows healing. There is a stimulator generator overlying the left chest with the distal wire overlying the left T1 t ransverse process. XR/XR shoulder LT min 2V* [id number] Impression: Internal fixation of fracture of the left humeral neck.
== END 2021-06-05 10:13 | disposition home or self-care (01) ==
PROVIDERS: Visit Provider Orthopaedic Surgery Orthopaedic Trauma
DX: S42.222A 2-part displaced fracture of surgical neck of left humerus, initial encounter for closed fracture (principal); X58.XXXA Exposure to other specified factors, initial encounter
CPT/HCPCS: 73030

== ENCOUNTER → 2021-06-26 07:50 | Outpatient (BNVA) | payer MEDICAID, SELFPAY ==
[2020-06-20 13:28] VITALS: BP 112/68; BMI 26.4
== END ==
PROVIDERS: Visit Provider Counselor Mental Health
DX: F41.1 Generalized anxiety disorder (principal); F33.1 Major depressive disorder, recurrent, moderate; F60.9 Personality disorder, unspecified
CPT/HCPCS: 90834

== ENCOUNTER → 2021-07-12 17:19 | Outpatient (BNVA) | payer MEDICAID, SELFPAY ==
[2020-06-20 13:28] VITALS: BP 112/68; BMI 26.4
== END ==
PROVIDERS: Visit Provider Family Medicine
DX: J45.909 Unspecified asthma, uncomplicated (principal); Z13.6 Encounter for screening for cardiovascular disorders; F41.1 Generalized anxiety disorder
CPT/HCPCS: 80053; 80061; 84443; 85025

== ENCOUNTER → 2021-09-12 08:05 | Outpatient (BNVA) | payer MEDICAID, SELFPAY ==
[2020-06-20 13:28] VITALS: BP 112/68; BMI 26.4
== END ==
PROVIDERS: Visit Provider Counselor Mental Health
DX: F41.1 Generalized anxiety disorder (principal); F33.1 Major depressive disorder, recurrent, moderate; F60.9 Personality disorder, unspecified
CPT/HCPCS: 90832

== ENCOUNTER → 2021-09-27 07:52 | Outpatient (BNVA) | payer MEDICAID, SELFPAY ==
[2020-06-20 13:28] VITALS: BP 112/68; BMI 26.4
== END ==
PROVIDERS: Visit Provider Counselor Mental Health
DX: F41.1 Generalized anxiety disorder (principal); F33.1 Major depressive disorder, recurrent, moderate; F60.9 Personality disorder, unspecified
CPT/HCPCS: 90832

== ENCOUNTER 2021-10-12 11:12 | Outpatient (CLI) | payer MEDICAID, SELFPAY ==
[2020-06-20 13:28] VITALS: BP 112/68; BMI 26.4
--- NOTE | 2021-10-12 11:30 | MM_ITS ---
WS: [id number] BILATERAL DIGITAL SCREENING MAMMOGRAPHY WITH CAD CLINICAL INFORMATION: Z. - Encounter for screening mammogram for malignant ... HISTORY: Screening mammogram. No current complaints. TECHNIQUE: Bilateral CC and MLO views. FINDINGS: Scattered fibroglandular densities bilaterally. No suspicious focal mass, asymmetry, calcifications, or architectural distortion. No evidence of malignancy. HISTORY: Screening mammogram. No current complaints. COMPARISON: TECHNIQUE: Bilateral CC and MLO views. FINDINGS: Scattered fibroglandular densities bilaterally. 6 mm asymmetric density central RIGHT breast is nonsp ecific. Recommend RIGHT breast spot compression views and ultrasound if persistent in further evaluat ion. LEFT breast is unremarkable. MM/[place] [id number] IMPRESSION: BI-RADS: FOLLOW UP: Recommend return to annual screening mammography. BILATERAL DIGITAL SCREENING MAMMOGRAPHY WITH CAD CLINICAL INFORMATION: Z09.01 - Encounter for screening mammogram for malignant ... IMPRESSION: BI-RADS: 0-Incomplete: Need additional imaging evaluation FOLLOW UP: Need Additional Imaging
== END 2021-10-12 11:13 | disposition home or self-care (01) ==
PROVIDERS: Visit Provider Family Medicine
DX: Z12.31 Encounter for screening mammogram for malignant neoplasm of breast (principal)
CPT/HCPCS: 77067

== ENCOUNTER → 2021-10-24 13:05 | Outpatient (BNVA) | payer MEDICAID, SELFPAY ==
[2020-06-20 13:28] VITALS: BP 112/68; BMI 26.4
== END ==
PROVIDERS: Visit Provider Specialist
DX: G40.219 Localization-related (focal) (partial) symptomatic epilepsy and epileptic syndromes with complex partial seizures, intractable, without status epilepticus (principal); F60.3 Borderline personality disorder
CPT/HCPCS: G0463

== ENCOUNTER → 2021-10-30 07:58 | Outpatient (BNVA) | payer MEDICAID, SELFPAY ==
[2020-06-20 13:28] VITALS: BP 112/68; BMI 26.4
== END ==
PROVIDERS: Visit Provider Counselor Mental Health
DX: F41.1 Generalized anxiety disorder; F33.1 Major depressive disorder, recurrent, moderate; F60.9 Personality disorder, unspecified
CPT/HCPCS: 90834

== ENCOUNTER → 2021-11-08 08:21 | Outpatient (BNVA) | payer MEDICAID, SELFPAY ==
[2020-06-20 13:28] VITALS: BP 112/68; BMI 26.4
== END ==
PROVIDERS: Visit Provider Psychiatry & Neurology Psychiatry
DX: F41.1 Generalized anxiety disorder (principal); F33.2 Major depressive disorder, recurrent severe without psychotic features
CPT/HCPCS: 99213

== ENCOUNTER 2021-12-07 10:38 | Outpatient (CLI) | payer MEDICAID, SELFPAY ==
[2020-06-20 13:28] VITALS: BP 112/68; BMI 26.4
--- NOTE | 2021-12-07 10:49 | MM_ITS ---
WS: [id number] RIGHT 3D TOMOSYNTHESIS DIGITAL MAMMOGRAPHY WITH CAD CLINICAL INFORMATION: R92.8 - Other abnormal and inconclusive findings on diagn... COMPARISON: October 12, 2021 TECHNIQUE: 2 views of the right breast were obtained. FINDINGS: Scattered fibroglandular densities of the right breast. Stable 6 mm asymmetric density central RIGHT breast. Ultrasound is pending. ULTRASOUND BREAST RIGHT TECHNIQUE: Ultrasound right breast focused area of concern. CLINICAL INFORMATION: R92.8 - Other abnormal and inconclusive findings on diagn... COMPARISON: None. FINDINGS: Ultrasound RIGHT breast at 3:00 position and 9:00 subareolar. Tiny cyst 3:00 position measuring 3.0 x 3.5 x 2.1 mm. No suspicious lesions at the 9:00 position. Fin dings are benign. MM/[place] [id number] IMPRESSION: BI-RADS: 2-Benign FOLLOW UP: 1 Year Follow-up Recommend return to annual screening mammography.
== END 2021-12-07 10:39 | disposition home or self-care (01) ==
PROVIDERS: Visit Provider Family Medicine
DX: R92.8 Other abnormal and inconclusive findings on diagnostic imaging of breast (principal)
CPT/HCPCS: 76642; 77061

== ENCOUNTER → 2021-12-25 08:02 | Outpatient (BNVA) | payer MEDICAID, SELFPAY ==
[2020-06-20 13:28] VITALS: BP 112/68; BMI 26.4
== END ==
PROVIDERS: Visit Provider Counselor Mental Health
DX: F41.1 Generalized anxiety disorder (principal); F33.1 Major depressive disorder, recurrent, moderate; F60.9 Personality disorder, unspecified
CPT/HCPCS: 90834

== ENCOUNTER → 2022-01-09 07:24 | Outpatient (BNVA) | payer MEDICAID, SELFPAY ==
[2020-06-20 13:28] VITALS: BP 112/68; BMI 26.4
== END ==
PROVIDERS: Visit Provider Counselor Mental Health
DX: F41.1 Generalized anxiety disorder (principal); F33.1 Major depressive disorder, recurrent, moderate; F60.9 Personality disorder, unspecified
CPT/HCPCS: 90834

== ENCOUNTER → 2022-02-05 08:04 | Outpatient (BNVA) | payer MEDICAID, OTHER, SELFPAY ==
[2020-06-20 13:28] VITALS: BP 112/68; BMI 26.4
== END ==
PROVIDERS: Visit Provider Counselor Mental Health
DX: F33.1 Major depressive disorder, recurrent, moderate (principal); F41.1 Generalized anxiety disorder; F60.9 Personality disorder, unspecified
CPT/HCPCS: 90834

== ENCOUNTER 2023-05-05 14:33 | Emergency (ER) | payer SELFPAY ==
[2020-06-20 13:28] VITALS: BP 112/68; BMI 26.4
[2023-05-05 14:39] VITALS: PULSE 78; RESP 17; TEMP 36.7; O2SAT 99; BMI 25.1
--- NOTE | 2023-05-05 15:27 | ED_ITS ---
HPI - General Adult General: Chief complaint: General Medical Stated complaint: needs meds for seizures Time Seen by Provider: 05/05/23 14:46 History of Present Illness: Patient is a 43-year-old female that presents to the emergency department for medication refill. Patient used to live in the area but moved to [place] and has returned in the last couple weeks. She is in the process of changing over her state Medicaid and is awaiting neurology referral. Patient is currently on Onfi for complex seizures and is running out. Patient denies any seizure activity She has a VNS that has also helped to control her seizures. Patient is seeking medication refill Associated symptoms: Deny chest pain, confusion, dyspnea, headache(s), malaise, nausea, rash, palpitations or vomiting Review of Systems 2 General: Reports: 10 or more systems reviewed and unremarkable except in HPI and below Const: Denies: fever(s), chills, change in appetite, change in weight, fatigue or malaise Eyes: Denies: change in vision, eye discomfort, eye discharge or eye redness ENMT: Denies: throat pain, enlarged tonsils, odynophagia, hoarseness, ear or mastoid pain, ear discharge, change in hearing, tinnitus, nasal discharge, nasal congestion, post nasal drip or sinus pain Card: Denies: chest pain, palpitations, irregular heart rhythm, edema, dyspnea on exertion, orthopnea or leg pain with exertion Resp: Denies: dyspnea, productive cough, non-productive cough, wheezing, stridor or chest congestion GI: Denies: abdominal pain, nausea, vomiting, dysphagia, diarrhea, constipation, bloating, GI cramping or hematochezia : Denies: flank pain, difficulty voiding, dysuria, urinary frequency, urinary urgency, urinary hesitancy, oliguria or hematuria Musc: Denies: neck pain, back pain, extremity pain, joint pain, joint swelling, joint redness, joint warmth or muscle weakness Skin/Breast: Denies: rash, pruritus, erythema, photosensitivity or new lesions Neuro: Denies: headache(s), numbness in extremities, weakness in extremities, sensory changes, lack of coordination, difficulty walking, frequent falls, dizziness, confusion, Slurred speech present, difficulty communicating thoughts, seizure-like activity or involuntary movements Endo: Denies: polyuria, polydipsia or tired all the time Be/Lymph: Denies: easy bruising or easy bleeding [facility] ED PFS: Medical History (Updated 05/05/23 @ 15:29 by SYMONE Dahl) Asthma Environmental and seasonal allergies Generalized anxiety disorder 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 Major depressive disorder, recurrent, moderate Partial epilepsy secondarily generalised Personality disorder Unspecified personality disorder Surgical History History of dental surgery Status post VNS (vagus nerve stimulator) placement Family History Father Diabetes Hypertension Mother Hypertension Social History Smoking and tobacco status: never smoked Alcohol intake: never Substance/Drug Use: never Lives independently: Yes Marital status: Unknown Current occupational status: disabled Current gender identity: Female Physical Exam Const: COMMON NORMALS: no acute distress, patient oriented x3 and alert GENERAL APPEARANCE: cooperative ORIENTATION/CONSCIOUSNESS: Yes awake, Yes oriented to person, Yes oriented to place and Yes oriented to time HENMT: COMMON NORMALS: normocephalic and atraumatic HEAD & SCALP: normocephalic and atraumatic FACE & SINUS: normal facial exam MOUTH: Normal oral and palatal mucosa present THROAT: posterior oropharynx normal Eye: COMMON NORMALS: Equal, round and reactive pupils present, EOMs intact bilaterally, conjunctivae normal and no scleral icterus GENERAL EYE: appearance normal, both eyes and all related structures ALIGNMENT: Yes alignment normal PERIORBITAL: periorbital findings normal CONJUNCTIVA: Yes conjunctivae normal PUPIL: Yes Equal, round and reactive pupils present Neck/C-Spine: COMMON NORMALS: full ROM GENERAL: Yes normal visual inspection Lymph: LYMPHATIC: no lymphadenopathy noted Chest: COMMONS NORMALS: normal inspection of the chest Breast/axilla inspection: Yes no chest deformity, asymmetry, normal contours, no nodules, masses, tenderness Resp: COMMON NORMALS: normal respiratory effort, No retractions and No use of accessory muscles EFFORT & INSPECTION: Yes able to speak in complete sentences and Yes symmetric chest movement Cardio: COMMON NORMALS: Peripheral pulses 2+ throughout PERIPHERAL PULSES: Peripheral pulses 2+ throughout GI: COMMON NORMALS: Normal to inspection, nondistended, normoactive bowel sounds present, Soft to palpation and non-tender INSPECTION: Yes normal to inspection PALPATION: Yes Soft to palpation RECTAL EXAM: deferred Extremity: COMMON NORMALS: normal to inspection GENERAL: Yes normal exam except as noted Neuro: COMMON NORMALS: patient oriented x3 SENSORIUM/ORIENTATION: Yes alert, Yes oriented to person, Yes oriented to place and Yes oriented to time CRANIAL NERVES: Yes CN normal except as noted Psych: COMMON NORMALS: mental status grossly normal, Normal thought process present, cooperative, activity/motor behavior normal, denies homicidal ideation and denies suicidal ideation THOUGHT PROCESS: Normal thought process present Skin: COMMON NORMALS: no rashes or lesions noted, no wounds and turgor normal GENERAL SKIN EXAM: no rashes or lesions noted and turgor normal Course Vital Signs: Vital signs: Vital Signs Temperature 98.1 F 05/05/23 14:39 Pulse Rate 78 05/05/23 14:39 Respiratory Rate 17 05/05/23 14:39 Pulse Oximetry 99 05/05/23 14:39 [facility] - General Adult Medical Decision Making Patient was evaluated in the emergency department for medication refill. I reviewed her medication bottles which reveals she is out of her antiepileptic. She is in the process of changing over her Medicaid insurance she is in the process of obtaining primary and neurology care She was a former patient of Dr. Lowe. She adamantly refuses to see Dr. Lowe. Patient will be happy to drive to [place] if needed. Patient has been prescribed her antiepileptic for 1 month. There are no additional refills. Discharge Plan Discharge Patient Disposition: Home Clinical Impression: Prescription given, Seizures Condition: Stable Prescriptions: New clobazam [Onfi] 20 mg tablet See Rx Instructions .ROUTE .COMPLEX Qty: 90 0RF Rx Instructions: 20 mg tablet orally; Take 1 tablet every morning and 2 tablets at night [facility]. Prescribed 90 tablets in total. No refills No Action montelukast 10 mg tablet 10 mg PO DAILY Qty: 30 5RF fluticasone propion-salmeterol [Advair Diskus] 100-50 mcg/dose blister with device 1 inh INHALATION BID Qty: 60 5RF albuterol sulfate 90 mcg/actuation HFA aerosol inhaler 2 inh inhalation Q4H PRN (Reason: shortness of breath or wheezing) Qty: 8.5 5RF triamcinolone acetonide [Nasacort] 55 mcg aerosol,spray 1 spray intranasal DAILY Rx Instructions: administer into each nostril diphenhydramine HCl [Benadryl] 25 mg capsule 25 mg PO QID PRN naproxen sodium [Aleve] 220 mg tablet 220 mg PO Q8H Prsn-Qzht-Ufnfo (au-FO-nwkxve) 400-2,000 mcg tablet PO DAILY Pepto-Bismol 262 mg tablet 2 tab PO Q30M PRN (Reason: diarrhea) Rx Instructions: do not exceed 16 tabs per 24 hrs [place] 344-1,050-1,000 mg tablet, effervescent 1 tab PO Q4H PRN (Reason: stomach upset) trazodone 100 mg tablet 200 mg PO .HS PRN (Reason: insomnia) Qty: 60 2RF clobazam 20 mg tablet 40 mg PO 2100 Qty: 90 5RF Rx Instructions: 20mg in the am, 40mg at bedtime hydroxyzine HCl 50 mg tablet 50 mg PO QID PRN (Reason: anxiety) Qty: 120 2RF levetiracetam 500 mg tablet See Rx Instructions .ROUTE .COMPLEX Qty: 120 3RF Dose Instruction: TAKE 2 TABLETS BY MOUTH TWICE DAILY . APPOINTMENT REQUIRED FOR FUTURE REFILLS Rx Instructions: TAKE 2 TABLETS BY MOUTH TWICE DAILY . clobazam 20 mg tablet See Rx Instructions .ROUTE .COMPLEX Qty: 90 1RF Rx Instructions: 1 po am and 2 po qpm; Discharge Orders: Discharge ED (Routine); Ordered 05/05/23 Ordered By: Jose Escobar Discharge Diet: Advance as tolerated Discharge Activity: Resume usual activity Patient Instructions: Clobazam (By mouth) (Onfi, Sympazan) Activity Restrictions/Additional Instructions: I have consulted our bottle caser to assist you in finding a neurologist. She should reach out to you this week to assist you. Please take your medication as prescribed Please return to the emergency department for worsening symptom Coding Level of Care Code ED [employer] Casey
--- NOTE | 2023-05-10 13:46 | DCPLANNER ---
room service manager had message to schedule a follow up appointment for patient with neurology. room service manager sent patients information to the front office staff at neurology. Patients information will be printed and reviewed. Clinic will call patient with appointment information.
== END 2023-05-05 15:46 | disposition home or self-care (01) ==
PROVIDERS: Emergency Provider Nurse Practitioner
DX: Z76.0 Encounter for issue of repeat prescription (principal); R56.9 Unspecified convulsions
CPT/HCPCS: 99281

== ENCOUNTER 2023-06-06 15:24 | Emergency (ER) | payer MEDICAID, SELFPAY ==
[2020-06-20 13:28] VITALS: BP 112/68; BMI 26.4
[2023-06-06 15:26] VITALS: BP 103/67; PULSE 79; RESP 16; TEMP 36.8; O2SAT 98
--- NOTE | 2023-06-06 15:32 | ED_ITS ---
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 Major depressive disorder, recurrent, moderate Partial epilepsy secondarily generalised Personality disorder Unspecified personality disorder Surgical History History of dental surgery Status post VNS (vagus nerve stimulator) placement Family History Father Diabetes Hypertension Mother Hypertension Social History Smoking and tobacco status: never smoked Alcohol intake: never Substance/Drug Use: never Lives independently: Yes Marital status: Unknown Current occupational status: disabled Current gender identity: Female Course Vital Signs: Vital signs: Vital Signs Temperature 98.2 F 06/06/23 15:26 Pulse Rate 79 06/06/23 15:26 Respiratory Rate 16 06/06/23 15:26 Blood Pressure 103/67 06/06/23 15:26 Pulse Oximetry 98 06/06/23 15:26 Oxygen Delivery Me thod Room Air 06/06/23 15:26 Discharge Plan Discharge Condition: Stable Prescriptions: No Action montelukast 10 mg tablet 10 mg PO DAILY Qty: 30 5RF fluticasone propion-salmeterol [Advair Diskus] 100-50 mcg/dose blister with device 1 inh INHALATION BID Qty: 60 5RF albuterol sulfate 90 mcg/actuation HFA aerosol inhaler 2 inh inhalation Q4H PRN (Reason: shortness of breath or wheezing) Qty: 8.5 5RF triamcinolone acetonide [Nasacort] 55 mcg aerosol,spray 1 spray intranasal DAILY Rx Instructions: administer into each nostril diphenhydramine HCl [Benadryl] 25 mg capsule 25 mg PO QID PRN naproxen sodium [Aleve] 220 mg tablet 220 mg PO Q8H Morm-Wixl-Dbnxd (ea-MK-ufsedv) 400-2,000 mcg tablet PO DAILY Pepto-Bismol 262 mg tablet 2 tab PO Q30M PRN (Reason: diarrhea) Rx Instructions: do not exceed 16 tabs per 24 hrs Sindy-[place] Gold 344-1,050-1,000 mg tablet, effervescent 1 tab PO Q4H PRN (Reason: stomach upset) trazodone 100 mg tablet 200 mg PO .HS PRN (Reason: insomnia) Qty: 60 2RF clobazam 20 mg tablet 40 mg PO 2100 Qty: 90 5RF Rx Instructions: 20mg in the am, 40mg at bedtime hydroxyzine HCl 50 mg tablet 50 mg PO QID PRN (Reason: anxiety) Qty: 120 2RF levetiracetam 500 mg tablet See Rx Instructions .ROUTE .COMPLEX Qty: 120 3RF Dose Instruction: TAKE 2 TABLETS BY MOUTH TWICE DAILY . APPOINTMENT REQUIRED FOR FUTURE REFILLS Rx Instructions: TAKE 2 TABLETS BY MOUTH TWICE DAILY . clobazam 20 mg tablet See Rx Instructions .ROUTE .COMPLEX Qty: 90 1RF Rx Instructions: 1 po am and 2 po qpm; Onfi 20 mg tablet See Rx Instructions .ROUTE .COMPLEX Qty: 90 0RF Rx Instructions: 20 mg tablet orally; Take 1 tablet every morning and 2 tablets at night before bed. Prescribed 90 tablets in total. 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
--- NOTE | 2023-06-06 15:39 | W.ED.RECABL ---
HPI - Recheck/Abnormal Lab/Rx General: Chief Complaint: Recheck/Abnormal Lab/Rx Stated Complaint: requesting med refill Time Seen by Provider: 06/06/23 15:32 Source: patient Mode of arrival: ambulatory Limitations: no limitations History of Present Illness: Patient is a 43-year-old female that presents to the emergency department for medication refill.? Patient used to live in the area but moved to [place] and has returned in the last couple weeks.? She is in the process of changing over her state Medicaid and is awaiting neurology referral. Patient is currently on Onfi for complex seizures and is running out. She has appointment with PCP in a few days. She has no physical complaints at this time. Patient denies any seizure activity She has a VNS that has also helped to control her seizures. Patient is seeking medication refill MD complaint: medication refill request Returns today for: request for prescription Symptoms since prior visit: no new symptoms Context: ran out of medication Associated symptoms: none Review of Systems Const: Denies: fever(s), chills, body aches, fatigue or malaise Eyes: Denies: change in vision or blurry vision Card: Denies: chest pain, palpitations, irregular heart rhythm, lightheadedness, syncope or dyspnea on exertion Resp: Denies: dyspnea, productive cough or pain on inspiration GI: Denies: abdominal pain, nausea, vomiting, heartburn or diarrhea : Denies: dysuria Musc: Denies: neck pain, back pain or joint pain Skin/Breast: Denies: rash Neuro: Denies: headache(s), numbness in extremities, weakness in extremities, sensory changes, dizziness, vertigo, confusion, behavioral changes, Slurred speech present, difficulty communicating thoughts or seizure-like activity PFS ED PFSH: Medical History Asthma Environmental and seasonal allergies Generalized anxiety disorder 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 Major depressive disorder, recurrent, moderate Partial epilepsy secondarily generalised Personality disorder Unspecified personality disorder Surgical History History of dental surgery Status post VNS (vagus nerve stimulator) placement Family History Father Diabetes Hypertension Mother Hypertension Social History Smoking and tobacco status: never smoked Alcohol intake: never Substance/Drug Use: never Lives independently: Yes Marital status: Unknown Current occupational status: disabled Current gender identity: Female Physical Exam Const: COMMON NORMALS: no acute distress, average body habitus, patient oriented x3, no limitations, healthy appearing, alert and well nourished HENMT: COMMON NORMALS: normocephalic and atraumatic HEAD & SCALP: normal to inspection, normocephalic and atraumatic Neck/C-Spine: COMMON NORMALS: full ROM, no lymphadenopathy, supple and no meningeal signs Chest: COMMONS NORMALS: normal inspection of the chest Resp: COMMON NORMALS: normal respiratory effort and clear to auscultation bilaterally AUSCULTATION: clear to auscultation bilaterally Cardio: COMMON NORMALS: regular rate and regular rhythm RATE: regular rate RHYTHM: regular rhythm Extremity: COMMON NORMALS: normal to inspection GENERAL: Yes normal exam except as noted Neuro: NIRMAL COMA SCALE: document GCS findings [place] coma scale eye opening: Spontaneous [place] coma scale verbal response: Orientated [place] coma scale motor response: Obey commands [place] coma scale total score: 15 COMMON NORMALS: patient oriented x3, CN's II-XII intact bilaterally, moves all extremities, no focal motor deficits, no sensory deficits noted and gait normal SENSORIUM/ORIENTATION: Yes alert MENINGEAL SIGNS: Yes no meningeal signs GAIT: Yes Normal gait present MOTOR EXAM: 5/5 motor strength present throughout Skin: COMMON NORMALS: no rashes or lesions noted GENERAL SKIN EXAM: no rashes or lesions noted Course Vital Signs: Vital signs: Vital Signs Temperature 98.2 F 06/06/23 15:26 Pulse Rate 79 06/06/23 15:26 Respiratory Rate 16 06/06/23 15:26 Blood Pressure 103/67 06/06/23 15:26 Pulse Oximetry 98 06/06/23 15:26 Oxygen Delivery Me thod Room Air 06/06/23 15:26 MDM - Recheck/Abnormal Lab/Rx Medical Decision Making Patient will be provided refill. Follow-up with primary care in a few days as scheduled. Continue current plan of neurology follow-up. No radiology studies performed this visit Discharge Plan Discharge Patient Disposition: Home Clinical Impression: Encounter for medication refill Condition: Stable Prescriptions: Continued Onfi 20 mg tablet See Rx Instructions .ROUTE .COMPLEX Qty: 90 0RF Rx Instructions: 20 mg tablet orally; Take 1 tablet every morning and 2 tablets at night before bed. Prescribed 90 tablets in total. No refills No Action montelukast 10 mg tablet 10 mg PO DAILY Qty: 30 5RF fluticasone propion-salmeterol [Advair Diskus] 100-50 mcg/dose blister with device 1 inh INHALATION BID Qty: 60 5RF albuterol sulfate 90 mcg/actuation HFA aerosol inhaler 2 inh inhalation Q4H PRN (Reason: shortness of breath or wheezing) Qty: 8.5 5RF triamcinolone acetonide [Nasacort] 55 mcg aerosol,spray 1 spray intranasal DAILY Rx Instructions: administer into each nostril diphenhydramine HCl [Benadryl] 25 mg capsule 25 mg PO QID PRN naproxen sodium [Aleve] 220 mg tablet 220 mg PO Q8H Bqad-Eucu-Pnwfm (zt-IU-wtwipv) 400-2,000 mcg tablet PO DAILY Pepto-Bismol 262 mg tablet 2 tab PO Q30M PRN (Reason: diarrhea) Rx Instructions: do not exceed 16 tabs per 24 hrs Sindy-[place] Gold 344-1,050-1,000 mg tablet, effervescent 1 tab PO Q4H PRN (Reason: stomach upset) trazodone 100 mg tablet 200 mg PO .HS PRN (Reason: insomnia) Qty: 60 2RF clobazam 20 mg tablet 40 mg PO 2100 Qty: 90 5RF Rx Instructions: 20mg in the am, 40mg at bedtime hydroxyzine HCl 50 mg tablet 50 mg PO QID PRN (Reason: anxiety) Qty: 120 2RF levetiracetam 500 mg tablet See Rx Instructions .ROUTE .COMPLEX Qty: 120 3RF Dose Instruction: TAKE 2 TABLETS BY MOUTH TWICE DAILY . APPOINTMENT REQUIRED FOR FUTURE REFILLS Rx Instructions: TAKE 2 TABLETS BY MOUTH TWICE DAILY . 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
== END 2023-06-06 15:47 | disposition home or self-care (01) ==
PROVIDERS: Emergency Provider Physician Assistant
DX: Z76.0 Encounter for issue of repeat prescription (principal)
CPT/HCPCS: 99281

== ENCOUNTER 2023-07-06 15:03 | Emergency (ER) | payer MEDICAID, SELFPAY ==
[2020-06-20 13:28] VITALS: BP 112/68; BMI 26.4
[2023-07-06 15:12] VITALS: BP 100/68; PULSE 80; RESP 17; O2SAT 98
--- NOTE | 2023-07-06 15:54 | ED_ITS ---
HPI - Recheck/Abnormal Lab/Rx General: Chief Complaint: Recheck/Abnormal Lab/Rx Stated Complaint: almost out of seisure meds Time Seen by Provider: 07/06/23 15:19 History of Present Illness: Patient is a 43-year-old female with a past medical history significant for asthma, generalized anxiety disorder, epilepsy, and depression who presents to the emergency department requesting a medication refill. Patient reports that she is out of her clobazam and is only needing enough to get her to Saturday. Patient reports that she does have a appointment with her primary care provider on Saturday to refill her medications. Patient has no other complaints at this time. Review of Systems General: Reports: 10 or more systems reviewed and unremarkable except in HPI and below Const: Denies: fever(s) or chills ENMT: Denies: throat pain, hoarseness, ear or mastoid pain or ear discharge Card: Denies: chest pain or palpitations Resp: Denies: dyspnea, productive cough, non-productive cough or wheezing GI: Denies: abdominal pain, nausea or vomiting : Denies: flank pain, difficulty voiding, dysuria or urinary frequency Musc: Denies: neck pain, back pain or extremity pain Skin/Breast: Denies: rash Neuro: Denies: headache(s), numbness in extremities or seizure-like activity PFSH ED PFSH: Medical History Asthma Environmental and seasonal allergies Generalized anxiety disorder 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 Major depressive disorder, recurrent, moderate Partial epilepsy secondarily generalised Personality disorder Unspecified personality disorder Surgical History History of dental surgery Status post VNS (vagus nerve stimulator) placement Family History Father Diabetes Hypertension Mother Hypertension Social History Smoking and tobacco/nicotine status: never used tobacco/nicotine Alcohol intake: never Substance/Drug Use: never Lives independently: Yes Marital status: Unknown Current occupational status: disabled Current gender identity: Female Physical Exam Const: COMMON NORMALS: no acute distress, patient oriented x3, no limitations and alert HENMT: COMMON NORMALS: normocephalic and atraumatic HEAD & SCALP: normocephalic and atraumatic Eye: COMMON NORMALS: Equal, round and reactive pupils present and EOMs intact bilaterally PUPIL: Yes Equal, round and reactive pupils present Neck/C-Spine: COMMON NORMALS: full ROM and no JVD Chest: COMMONS NORMALS: normal inspection of the chest Resp: COMMON NORMALS: normal respiratory effort, No retractions and No use of accessory muscles Cardio: COMMON NORMALS: no JVD, regular rate, regular rhythm, No gallops present (Cardio), No clicks present (Cardio), No murmurs present (Cardio) and No rub (Cardio) RATE: regular rate RHYTHM: regular rhythm Neuro: COMMON NORMALS: patient oriented x3 SENSORIUM/ORIENTATION: Yes alert OTHER: No focal neurological deficits noted on examination. Sensation intact to bilateral upper and lower extremities. Course Vital Signs: Vital signs: Vital Signs Pulse Rate 80 07/06/23 15:12 Respiratory Rate 17 07/06/23 15:12 Blood Pressure 100/68 07/06/23 15:12 Pulse Oximetry 98 07/06/23 15:12 MDM - Recheck/Abnormal Lab/Rx Medical Decision Making Patient is a 43-year-old female with a past medical history significant for asthma, generalized anxiety disorder, epilepsy, and depression who presents to the emergency department requesting a medication refill. On physical examination patient is nontoxic and in no acute distress. Vital signs remained stable throughout the ED course. Patient is afebrile. Patient is just requesting a refill on her clobazam. She has no other complaints at this time. Patient states that she does have a appointment scheduled with her primary care provider on Saturday. I will give her enough medication to get her to Saturday morning. Patient stated understanding of all discharge directions was agreeable to plan of care. Differential Diagnosis Likely encounter for medication refill (Drug-seeking behavior, epilepsy,) No radiology studies performed this visit Discharge Plan Discharge Patient Disposition: Home Clinical Impression: Encounter for medication refill Condition: Stable Prescriptions: New clobazam 10 mg tablet 10 mg PO BID Qty: 5 0RF No Action montelukast 10 mg tablet 10 mg PO DAILY Qty: 30 5RF fluticasone propion-salmeterol [Advair Diskus] 100-50 mcg/dose blister with device 1 inh INHALATION BID Qty: 60 5RF albuterol sulfate 90 mcg/actuation HFA aerosol inhaler 2 inh inhalation Q4H PRN (Reason: shortness of breath or wheezing) Qty: 8.5 5RF triamcinolone acetonide [Nasacort] 55 mcg aerosol,spray 1 spray intranasal DAILY Rx Instructions: administer into each nostril diphenhydramine HCl [Benadryl] 25 mg capsule 25 mg PO QID PRN naproxen sodium [Aleve] 220 mg tablet 220 mg PO Q8H Exih-Mqwd-Zebrv (ke-BA-hbyhla) 400-2,000 mcg tablet PO DAILY Pepto-Bismol 262 mg tablet 2 tab PO Q30M PRN (Reason: diarrhea) Rx Instructions: do not exceed 16 tabs per 24 hrs Sindy-[place] Gold 344-1,050-1,000 mg tablet, effervescent 1 tab PO Q4H PRN (Reason: stomach upset) trazodone 100 mg tablet 200 mg PO .HS PRN (Reason: insomnia) Qty: 60 2RF lamotrigine 100 mg tablet 100 mg PO BID hydroxyzine HCl 50 mg tablet 50 mg PO QID PRN (Reason: anxiety) Qty: 120 2RF Onfi 20 mg tablet See Rx Instructions .ROUTE .COMPLEX Qty: 90 0RF Rx Instructions: 20 mg tablet orally; Take 1 tablet every morning and 2 tablets at night before bed. Prescribed 90 tablets in total. No refills Discharge Orders: Discharge ED (Routine); Ordered 07/06/23 Ordered By: Constantino Ryder Referrals: Ciera Deng MD [Primary Care Provider] - Activity Restrictions/Additional Instructions: Prescription refilled as requested. Increase oral hydration. See handout over generalized instructions. Ensure that you keep the appointment primary care provider on Saturday. Return to the emergency department for any rapid worsening symptoms or as needed. Coding Level of Care Code ED [employer] Casey
--- NOTE | 2023-07-06 16:53 | PC.NURSE ---
PATIENT GETTING READY TO EXIT ER. PATIENT STOOD UP, STATED OH, MY FOOTS ASLEEP AND THEN FELL TO GROUND. PATIENT STATED THAT SHE FELT A CRACKLING IN HER ANKLE. PROVIDER NOTIFIED OF FINDINGS. PROVIDER OFFERED PATIENT XRAY AND EXAM IN ROOM AND PATIENT REFUSED. JONNATHAN WRAP PROVIDED.
== END 2023-07-06 17:15 | disposition home or self-care (01) ==
PROVIDERS: Emergency Provider Physician Assistant; PCP Family Medicine
DX: Z76.0 Encounter for issue of repeat prescription (principal); S99.912A Unspecified injury of left ankle, initial encounter; X50.1XXA Overexertion from prolonged static or awkward postures, initial encounter; Y92.239 Unspecified place in hospital as the place of occurrence of the external cause; G40.409 Other generalized epilepsy and epileptic syndromes, not intractable, without status epilepticus
CPT/HCPCS: 99283

== ENCOUNTER 2023-07-20 17:27 | Emergency (ER) | payer MEDICAID, SELFPAY ==
[2023-07-08 10:30] VITALS: BP 112/68; BMI 26.4
[2023-07-20 17:28] VITALS: BP 91/55; PULSE 66; RESP 16; TEMP 37.1; O2SAT 100; BMI 25.0
--- NOTE | 2023-07-20 17:53 | XRR_ITS ---
PROCEDURE INFORMATION: Exam: XR Left Ankle Exam date and time: 07/20/2023 6:22 PM Age: 43 years old Clinical indication: Injury or trauma; Fall; Patient HX: Lt ankle pain/swelling post twisting injury TECHNIQUE: Imaging protocol: Radiologic exam of the left ankle. Views: 3 or more views. COMPARISON: No relevant prior studies available. FINDINGS: Bones/joints: No acute fracture dislocation or significant arthritic disease. Soft tissues: Marked lateral soft tissue swelling. No soft tissue gas. Other findings: 3 nonweightbearing views submitted. XR/XR ankle LT min 3V* [id number] IMPRESSION: No acute fracture dislocation.
--- NOTE | 2023-07-20 17:59 | ED_ITS ---
HPI - Extremity Problem General: Chief complaint: Extremity Injury, Lower Stated complaint: LEFT ANKLE PAIN Time Seen by Provider: 07/20/23 17:32 Source: patient Mode of arrival: EMS Limitations: no limitations History of Present Illness: Patient presents emergency department today brought by EMS for evaluation treatment of left ankle injury. Patient reports about approximately 1 month ago she had rolled her ankle while actually here in the emergency department for a different issue. She admits to conservative management at home with bracing, icing, and elevation for the last several weeks. Patient reports that recently she had been able to get back to near complete normal function. However, she states today while trying to walk to her mother's house, there was some uneven ground which caused her to trip. Patient rolled her left ankle in an inverted fashion and had sudden onset severe swelling. She is also experiencing bruising. She reports tingling into her toes and inability to bear weight. 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 Major depressive disorder, recurrent, moderate Partial epilepsy secondarily generalised Personality disorder Unspecified personality disorder Surgical History History of dental surgery Status post VNS (vagus nerve stimulator) placement Family History Father Diabetes Hypertension Mother Hypertension Social History Smoking and tobacco/nicotine status: never used tobacco/nicotine Alcohol intake: never Substance/Drug Use: never Lives independently: Yes Marital status: Unknown Current occupational status: disabled Current gender identity: Female Female Reproductive History: Date of last menstrual period: 07/20/23 Physical Exam Const: COMMON NORMALS: no acute distress, patient oriented x3 and alert HENMT: COMMON NORMALS: normocephalic, atraumatic and hearing grossly normal bilaterally HEAD & SCALP: normocephalic and atraumatic Eye: COMMON NORMALS: Equal, round and reactive pupils present, EOMs intact bilaterally and conjunctivae normal CONJUNCTIVA: Yes conjunctivae normal PUPIL: Yes Equal, round and reactive pupils present Neck/C-Spine: COMMON NORMALS: full ROM and no JVD Lymph: LYMPHATIC: no lymphadenopathy noted Resp: COMMON NORMALS: normal respiratory effort, No retractions and No use of accessory muscles Cardio: COMMON NORMALS: no JVD and regular rate RATE: regular rate Back/Pelvis: OTHER: Patient has significant swelling around the left ankle circumferentially. Patient also has bruising present. Patient is tender to the lateral malleolus. No proximal fifth metatarsal tenderness. No midfoot tenderness though there is quite a bit of edema and bruising in this area. Patient still has flexion extension capabilities of her toes. Neuro: COMMON NORMALS: patient oriented x3 SENSORIUM/ORIENTATION: Yes alert Psych: COMMON NORMALS: mental status grossly normal, Normal thought process present, cooperative and normal affect THOUGHT PROCESS: Normal thought process present Skin: COMMON NORMALS: no rashes or lesions noted and turgor normal GENERAL SKIN EXAM: no rashes or lesions noted and turgor normal Course Vital Signs: Vital signs: Vital Signs Temperature 98.7 F 07/20/23 17:28 Pulse Rate 69 07/20/23 18:07 Respiratory Rate 16 07/20/23 18:07 Blood Pressure 98/73 07/20/23 18:07 Pulse Oximetry 100 07/20/23 18:07 Oxygen Delivery Me thod Room Air 07/20/23 18:07 MDM - Extremity (Nontraumatic) Medical Decision Making Patient has significant findings of circumferential left ankle swelling, foot swelling, and lateral foot and ankle bruising. X-ray today was read negative for signs of bony abnormality. I also see no signs of obvious fracture. However, with the significant swelling and bruising in the area have concerns for a rather significant soft tissue injury. For that reason, I am going to brace the patient's ankle and request nonweightbearing ambulation-using crutches. I am also going to request to follow-up with orthopedics at this time for further evaluation of potential soft tissue injury given the extent of her physical examination today. Patient agrees. We went over at home RICE therapy to continue until she is seen and evaluated by orthopedics. Patient verbalized understanding and agreement to treatment plan. Differential Diagnosis Likely lower extremity edema; Unlikely herpes zoster, gout, cellulitis, superficial thrombophlebitis or deep vein thrombosis of lower extremity Lab Data Radiology Impressions Ankle X-Ray 07/20/23 17:53 IMPRESSION: No acute fracture dislocation. All radiology interpretation(s) finalized by discharge Discharge Plan Discharge Patient Disposition: Home Clinical Impression: Ankle sprain and strain Condition: Stable Prescriptions: No Action triamcinolone acetonide [Nasacort] 55 mcg aerosol,spray 1 spray intranasal DAILY Rx Instructions: administer into each nostril diphenhydramine HCl [Benadryl] 25 mg capsule 25 mg PO QID PRN naproxen sodium [Aleve] 220 mg tablet 220 mg PO Q8H Epqp-Sane-Lmzpx (cc-VX-mdqrvg) 400-2,000 mcg tablet PO DAILY Pepto-Bismol 262 mg tablet 2 tab PO Q30M PRN (Reason: diarrhea) Rx Instructions: do not exceed 16 tabs per 24 hrs Sindy-[place] Gold 344-1,050-1,000 mg tablet, effervescent 1 tab PO Q4H PRN (Reason: stomach upset) lamotrigine 100 mg tablet 100 mg PO BID Qty: 60 3RF ergocalciferol (vitamin D2) 1,250 mcg (50,000 unit) capsule 1,250 mcg PO .weekly Qty: 12 2RF montelukast 10 mg tablet 10 mg PO DAILY Qty: 30 5RF hydroxyzine HCl 50 mg tablet 50 mg PO QID PRN (Reason: anxiety) Qty: 120 2RF fluticasone propion-salmeterol [Advair Diskus] 100-50 mcg/dose blister with device 1 inh INHALATION BID Qty: 60 5RF albuterol sulfate 90 mcg/actuation HFA aerosol inhaler 2 inh inhalation Q4H PRN (Reason: shortness of breath or wheezing) Qty: 8.5 5RF trazodone 100 mg tablet 200 mg PO .HS PRN (Reason: insomnia) Qty: 60 2RF clobazam [Onfi] 20 mg tablet See Rx Instructions .ROUTE .COMPLEX Qty: 90 0RF Rx Instructions: 20 mg tablet orally; Take 1 tablet every morning and 2 tablets at night before bed. Prescribed 90 tablets in total. No refills Discharge Orders: Discharge ED (Routine); Ordered 07/20/23 Ordered By: Maegan Collins Referrals: Ciera Deng MD [Primary Care Provider] - Discharge Diet: Usual diet Discharge Activity: Limit activity as instructed Patient Instructions: Sprains - Ankle Activity Restrictions/Additional Instructions: Much to my surprise, your ankle x-ray was read negative for signs of fracture. However, just because there is no bony fracture does not mean there is not injury. I am highly suspicious for connective tissue injury given the severity of your swelling and bruising. Also as this area was already weakened from previous injury, have increased concerns for worsening of injury from today. We are putting you into an ankle brace. Please wear this at all times-you may take it off to sleep as long as you do not get up out of bed in the middle of the night without it on. You also need to use crutches at all times for all ambulation until you are seen and evaluated by orthopedic specialty. Given the significance of the injury on examination today I would like you to follow-up with orthopedics. I have requested this follow-up and have sent it to our case management workers to help facilitate making this follow-up appointment for you. Until then, keep your leg up and elevated, continue to apply ice for 15 to 20 minutes, multiple times throughout the day, use your crutches, and wear your ankle brace. 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
[2023-07-20 18:07] VITALS: BP 98/73; PULSE 69; RESP 16; O2SAT 100
--- NOTE | 2023-07-20 19:17 | PC.NURSE ---
took over pt care at 1914, report taken from MICHELLE Maria
[2023-07-20 20:33] VITALS: BP 103/63; PULSE 63; RESP 16; O2SAT 100
[2023-07-20 20:41] VITALS: BP 103/63; PULSE 63; RESP 16; O2SAT 100
--- NOTE | 2023-07-22 08:27 | DCPLANNER ---
Message sent to ortho for follow up on Lt ankle sprain / swelling bruising
== END 2023-07-20 20:42 | disposition home or self-care (01) ==
PROVIDERS: Emergency Provider Physician Assistant; PCP Family Medicine
DX: S93.402A Sprain of unspecified ligament of left ankle, initial encounter (principal); S96.912A Strain of unspecified muscle and tendon at ankle and foot level, left foot, initial encounter; X50.1XXA Overexertion from prolonged static or awkward postures, initial encounter
CPT/HCPCS: 73610; 99283; E0114

== ENCOUNTER → 2023-08-02 08:28 | Outpatient (BNVA) | payer MEDICAID, SELFPAY ==
[2023-07-08 10:30] VITALS: BP 112/68; BMI 26.4
== END ==
PROVIDERS: PCP Family Medicine; Visit Provider Podiatrist Foot & Ankle Surgery
DX: S93.402A Sprain of unspecified ligament of left ankle, initial encounter; X50.9XXA Other and unspecified overexertion or strenuous movements or postures, initial encounter
CPT/HCPCS: 73610; 99203

== ENCOUNTER → 2023-08-23 10:50 | Outpatient (BNVA) | payer MEDICAID, SELFPAY ==
[2023-07-08 10:30] VITALS: BP 112/68; BMI 26.4
== END ==
PROVIDERS: PCP Family Medicine; Visit Provider Podiatrist Foot & Ankle Surgery
DX: S93.402A Sprain of unspecified ligament of left ankle, initial encounter (principal); X58.XXXA Exposure to other specified factors, initial encounter
CPT/HCPCS: 99213

== ENCOUNTER → 2023-09-09 08:26 | Outpatient (BNVA) | payer MEDICAID, SELFPAY ==
[2023-07-08 10:30] VITALS: BP 112/68; BMI 26.4
== END ==
PROVIDERS: PCP Family Medicine; Referring Provider Nurse Practitioner; Visit Provider Psychiatry & Neurology Neurology
DX: G40.119 Localization-related (focal) (partial) symptomatic epilepsy and epileptic syndromes with simple partial seizures, intractable, without status epilepticus (principal)
CPT/HCPCS: 99203

== ENCOUNTER 2023-09-16 17:36 | Emergency (ER) | payer MEDICAID, SELFPAY ==
[2023-07-08 10:30] VITALS: BP 112/68; BMI 26.4
[2023-09-16 17:49] VITALS: BP 109/73; PULSE 84; RESP 14; TEMP 36.4; O2SAT 97; BMI 25.0
--- NOTE | 2023-09-16 18:17 | W.ED.RECABL ---
HPI - Recheck/Abnormal Lab/Rx General: Chief Complaint: Recheck/Abnormal Lab/Rx Stated Complaint: need med refill Time Seen by Provider: 09/16/23 18:09 Source: patient Mode of arrival: ambulatory Limitations: no limitations History of Present Illness: 43-year-old female states that she is ran out of her Onfi states she is try to get a prescription but was not able to and states she needs a prescription. She has no medical complaints she states she needs a prescription until she is able to see Dr. Hurd. She states he is supposed to call her prescription but had not and she has tried to call his office not able to get a hold of them. 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 Major depressive disorder, recurrent, moderate Generalized anxiety disorder Surgical History Status post VNS (vagus nerve stimulator) placement History of dental surgery Family History Father Diabetes Hypertension Mother Hypertension Social History Smoking and tobacco/nicotine status: never used tobacco/nicotine Alcohol intake: never Substance/Drug Use: never Lives independently: Yes Marital status: Unknown Current occupational status: disabled Current gender identity: Female Physical Exam Const: COMMON NORMALS: no acute distress and patient oriented x3 HENMT: COMMON NORMALS: normocephalic and atraumatic HEAD & SCALP: normocephalic and atraumatic Chest: COMMONS NORMALS: normal inspection of the chest Resp: COMMON NORMALS: normal respiratory effort GI: INSPECTION: Yes normal to inspection Extremity: COMMON NORMALS: normal to inspection Neuro: COMMON NORMALS: patient oriented x3 Psych: COMMON NORMALS: mental status grossly normal Course Vital Signs: Vital signs: Vital Signs Temperature 97.6 F 09/16/23 17:49 Pulse Rate 84 09/16/23 17:49 Respiratory Rate 14 09/16/23 17:49 Blood Pressure 109/73 09/16/23 17:49 Pulse Oximetry 97 09/16/23 17:49 Oxygen Delivery Me thod Room Air 09/16/23 17:49 MDM - Recheck/Abnormal Lab/Rx Medical Decision Making Patient presents here for medication refill did refill her meds gave her a months worth she is follow-up with PCP and return if worsening. Medical Records I reviewed the patient's medical records. No radiology studies performed this visit Discharge Plan Discharge Patient Disposition: Home Clinical Impression: Encounter for medication refill Condition: Stable Prescriptions: Continued Onfi 20 mg tablet See Rx Instructions .ROUTE .COMPLEX Qty: 90 0RF Rx Instructions: 20 mg tablet orally; Take 1 tablet every morning and 2 tablets at night before bed. Prescribed 90 tablets in total. No refills No Action triamcinolone acetonide [Nasacort] 55 mcg aerosol,spray 1 spray intranasal DAILY Rx Instructions: administer into each nostril diphenhydramine HCl [Benadryl] 25 mg capsule 25 mg PO QID PRN naproxen sodium [Aleve] 220 mg tablet 220 mg PO Q8H Dwsa-Cbpc-Grwsa (od-SR-izuztd) 400-2,000 mcg tablet PO DAILY Pepto-Bismol 262 mg tablet 2 tab PO Q30M PRN (Reason: diarrhea) Rx Instructions: do not exceed 16 tabs per 24 hrs Sindy-[place] Gold 344-1,050-1,000 mg tablet, effervescent 1 tab PO Q4H PRN (Reason: stomach upset) lamotrigine 100 mg tablet 100 mg PO BID Qty: 60 5RF ergocalciferol (vitamin D2) 1,250 mcg (50,000 unit) capsule 1,250 mcg PO .weekly Qty: 12 2RF montelukast 10 mg tablet 10 mg PO DAILY Qty: 30 5RF hydroxyzine HCl 50 mg tablet 50 mg PO QID PRN (Reason: anxiety) Qty: 120 2RF fluticasone propion-salmeterol [Advair Diskus] 100-50 mcg/dose blister with device 1 inh INHALATION BID Qty: 60 5RF albuterol sulfate 90 mcg/actuation HFA aerosol inhaler 2 inh inhalation Q4H PRN (Reason: shortness of breath or wheezing) Qty: 8.5 5RF trazodone 100 mg tablet 200 mg PO .HS PRN (Reason: insomnia) Qty: 60 2RF Discharge Orders: Discharge ED (Routine); Ordered 09/16/23 Ordered By: Yaneth Charles Referrals: Ciera Deng MD [Primary Care Provider] - 1-3 days Discharge Diet: Advance as tolerated Discharge Activity: Resume usual activity Patient Instructions: Medicine Refill (ED) Coding Level of Care Code ED Prop Making [employer] [facility]
== END 2023-09-16 18:24 | disposition home or self-care (01) ==
PROVIDERS: Emergency Provider Emergency Medicine; PCP Family Medicine
DX: Z76.0 Encounter for issue of repeat prescription (principal)
CPT/HCPCS: 99281

== ENCOUNTER → 2023-10-08 14:25 | Outpatient (BNVA) | payer MEDICAID, SELFPAY ==
[2023-07-08 10:30] VITALS: BP 112/68; BMI 26.4
== END ==
PROVIDERS: PCP Family Medicine; Visit Provider Podiatrist Foot & Ankle Surgery
DX: S93.402A Sprain of unspecified ligament of left ankle, initial encounter (principal); X58.XXXA Exposure to other specified factors, initial encounter
CPT/HCPCS: 99213

== ENCOUNTER → 2023-11-27 15:13 | Outpatient (BNVA) | payer MEDICAID, SELFPAY ==
[2023-07-08 10:30] VITALS: BP 112/68; BMI 26.4
== END ==
PROVIDERS: PCP Family Medicine; Visit Provider Psychiatry & Neurology Neurology
DX: G40.119 Localization-related (focal) (partial) symptomatic epilepsy and epileptic syndromes with simple partial seizures, intractable, without status epilepticus (principal)
CPT/HCPCS: 99212

== ENCOUNTER → 2023-12-12 11:10 | Outpatient (BNVA) | payer MEDICAID, SELFPAY ==
[2023-07-08 10:30] VITALS: BP 112/68; BMI 26.4
== END ==
PROVIDERS: PCP Family Medicine; Visit Provider Psychiatry & Neurology Neurology
DX: G40.909 Epilepsy, unspecified, not intractable, without status epilepticus (principal)
CPT/HCPCS: 95816; 95819

== ENCOUNTER → 2023-12-27 15:00 | Outpatient (BNVA) | payer MEDICAID, SELFPAY ==
[2023-07-08 10:30] VITALS: BP 112/68; BMI 26.4
== END ==
PROVIDERS: PCP Family Medicine; Visit Provider Nurse Practitioner Family
DX: K64.9 Unspecified hemorrhoids (principal); Z12.4 Encounter for screening for malignant neoplasm of cervix
CPT/HCPCS: 87624

== ENCOUNTER 2024-01-01 15:05 | Outpatient (CLI) | payer MEDICAID, SELFPAY ==
[2023-07-08 10:30] VITALS: BP 112/68; BMI 26.4
--- NOTE | 2024-01-01 15:00 | MM_ITS ---
WS: [id number] BILATERAL 3D TOMOSYNTHESIS DIGITAL SCREENING MAMMOGRAPHY WITH CAD CLINICAL INFORMATION: Z12.39 - Encounter for other screening for malignant neop... HISTORY: Screening mammogram. No current complaints. COMPARISON: 10/12/2021 TECHNIQUE: Bilateral CC and MLO views. FINDINGS: Scattered fibroglandular densities bilaterally. No suspicious focal mass, asymmetry, calcifications, or architectural distortion. No evidence of malignancy. MM/[place] [id number] IMPRESSION: BI-RADS: 1-Negative FOLLOW UP: 1 Year Follow-up Recommend return to annual screening mammography.
== END 2024-01-01 15:06 | disposition home or self-care (01) ==
LOC: RAD 15:06
PROVIDERS: PCP Family Medicine; Visit Provider Nurse Practitioner Family
DX: Z12.31 Encounter for screening mammogram for malignant neoplasm of breast (principal); R92.323 Mammographic fibroglandular density, bilateral breasts
CPT/HCPCS: 77063; 77067

== ENCOUNTER 2024-01-01 15:41 | Outpatient (CLI) | payer MEDICAID, SELFPAY ==
[2023-07-08 10:30] VITALS: BP 112/68; BMI 26.4
[2024-01-01 16:14] LABS: Basophils # 0.1 10^3/uL (0.0-0.1); Eosinophils # 0.3 10^3/uL (0.0-0.8); Eosinophils % 4.1 %; Hematocrit 33.2 % (36-47); Lymphocytes # 1.6 10^3/uL (0.8-4.8); Lymphocytes % 25.8 %; Mean Corpuscular Hemoglobin 30.1 pg (27-33); Mean Corpuscular Volume 88.3 fl (85-98); Mean Platelet Volume 9.1 fL (7.4-10.4); Monocytes # 0.5 10^3/uL (0.2-0.9); Monocytes % 8.5 %; Neutrophils # 3.67 10^3/uL (1.8-7.7); Neutrophils % 60.3 %; Nucleated Red Blood Cells % 0 %; Platelet Count 298 10^3/cmm (157-399); Red Blood Count 3.76 10^6/uL (3.85-5.65); Red Cell Distribution Width 12.3 % (12.1-15.1); White Blood Count 6.09 10^3/uL (3.29-11.43)
[2024-01-01 16:36] LABS: Alanine Aminotransferase 7 U/L (0-33); Albumin Level 4.5 g/dL (3.5-5.2); Alkaline Phosphatase 78 U/L (35-105); Aspartate Amino Transferase 17 U/L (0-32); Globulin 2.5 g/dL (1.3-4.6); Total Bilirubin 0.2 mg/dL (0.15-1.2)
[2024-01-09 08:59] LABS: Lamotrigine (Lamictal) Level 3.4 mcg/mL (2.5-15.0)
== END 2024-01-01 15:42 | disposition home or self-care (01) ==
LOC: LAB 15:42
PROVIDERS: PCP Family Medicine; Visit Provider Psychiatry & Neurology Neurology
DX: G40.119 Localization-related (focal) (partial) symptomatic epilepsy and epileptic syndromes with simple partial seizures, intractable, without status epilepticus (principal); G40.909 Epilepsy, unspecified, not intractable, without status epilepticus
CPT/HCPCS: 36415; 80076; 80175; 85025

== ENCOUNTER → 2024-01-06 15:56 | Outpatient (BNVA) | payer MEDICAID, SELFPAY ==
[2023-07-08 10:30] VITALS: BP 112/68; BMI 26.4
== END ==
PROVIDERS: PCP Family Medicine; Visit Provider Podiatrist Foot & Ankle Surgery
DX: S93.402A Sprain of unspecified ligament of left ankle, initial encounter; X58.XXXA Exposure to other specified factors, initial encounter
CPT/HCPCS: 99213

== ENCOUNTER → 2024-01-13 13:05 | Outpatient (BNVA) | payer MEDICAID, SELFPAY ==
[2023-07-08 10:30] VITALS: BP 112/68; BMI 26.4
== END ==
PROVIDERS: PCP Family Medicine; Visit Provider Surgery
DX: K92.2 Gastrointestinal hemorrhage, unspecified (principal)
CPT/HCPCS: 99204

== ENCOUNTER → 2024-02-24 14:58 | Outpatient (BNVA) | payer MEDICAID, SELFPAY ==
[2023-07-08 10:30] VITALS: BP 112/68; BMI 26.4
== END ==
PROVIDERS: PCP Family Medicine; Referring Provider Nurse Practitioner Family; Visit Provider Nurse Practitioner Women's Health
DX: Z20.2 Contact with and (suspected) exposure to infections with a predominantly sexual mode of transmission (principal)
CPT/HCPCS: 87491; 87591

== ENCOUNTER 2024-02-26 11:32 | Day surgery (SDC) | payer MEDICAID, SELFPAY ==
[2023-07-08 10:30] VITALS: BP 112/68; BMI 26.4
[2024-02-26 11:55] VITALS: BP 101/74; PULSE 89; RESP 18; TEMP 36.3; O2SAT 99; BMI 24.5
[2024-02-26 12:00] LABS: OR HCG Qualitative Urine Negative (Negative)
[2024-02-26] MEDS: sodium chloride 0.9% 1,000 ML 30 ML IV (12:09)
--- NOTE | 2024-02-26 13:18 | P.ANESASSM_ITS ---
Pre-Anesthetic Assessment Height/Weight: Height 1.78 m Weight 77.474 kg Temp Pulse Resp BP Pulse Ox O2 Del Method 97.3 F L 89 18 101/74 99 Room Air 02/26/24 11:55 02/26/24 11:55 02/26/24 11:55 02/26/24 11:55 02/26/24 11:55 02/26/24 11:55 Preop Diagnosis: Rectal Bleeding Operation Date: 02/26/24 12:45 Proposed Procedures p EGD 94858 , 72737, G0121, K92.2, Z12.11(Not Applicable) - DO britt Barnett Colonoscopy(Not Applicable) - Jonathon Oconnor DO Familial anesthetic complications: none Last intake: Intake Last Liquid Date 02/25/24 Last Liquid Time 23:45 Last Solid Date 02/24/24 Last Solid Time 18:30 Social Alcohol (socially) and No tobacco Exam alert, oriented x 3, clear to auscultation bilaterally and regular rate & rhythm Airway Submandibular: within normal limits Cervical ROM: within normal limits Mallampati: Class I Dentition: caps (front left tooth) and full Pulmonary Asthma CV/HEM None reported None reported Hepatic None reported GI rectal bleeding Metabolic None reported Musc/skel None reported Neuropsych Anxiety, Depression and Seizure (well controlled.) vagus nerve stimulator Anesthetic Plan ASA status: 2 Anesthesia: MAC Other Pertinent Information bilateral upper extremities covered in bruises states it is from her pitbull puppy. Medications/Allergies Home Medications Medication Instructions Recorded Confirmed Last Taken Type diphenhydramine HCl 25 mg capsule 50 mg PO BID PRN Allergy Symptoms 10/24/21 02/26/24 02/24/24 History (Benadryl) naproxen sodium 220 mg tablet 220 mg PO Q8H PRN PAIN 10/24/21 02/26/24 02/24/24 History (Aleve) triamcinolone acetonide 55 mcg 1 spray intranasal DAILY PRN 10/24/21 02/26/24 02/24/24 History nasal spray aerosol (Nasacort) Allergy Symptoms bismuth subsalicylate 262 mg 2 tab PO Q30M PRN diarrhea 11/07/21 02/24/24 02/24/24 History tablet (Pepto-Bismol) multivitamin-folic acid 400 1 tab PO DAILY 11/07/21 02/26/24 02/24/24 History mcg-biotin 2,000 mcg tablet (Yhve-Byvi-Kpapg (bkmqruoy-owjnc-wqjshb)) pot bicarb 344 mg-sod bicarb 1,050 1 tab PO Q4H PRN stomach upset 11/07/21 02/26/24 02/24/24 History mg-citric acid 1,000 mg efferv tab (Sindy-[place] Gold) albuterol sulfate 90 mcg/actuation 2 inh inhalation Q4H PRN shortness 07/09/23 02/26/24 02/24/24 Rx aerosol inhaler of breath or wheezing #8.5 grams ergocalciferol (vitamin D2) 1,250 1,250 mcg PO .weekly #12 caps 07/09/23 02/26/24 02/22/24 Rx mcg (50,000 unit) capsule fluticasone 100 mcg-salmeterol 50 1 inh inhalation BID #60 ea 07/09/23 02/26/24 02/24/24 Rx mcg/dose blistr powdr for inhalation (Advair Diskus) lamotrigine 100 mg tablet 100 mg PO BID #60 tabs 11/27/23 02/26/24 02/26/24 Rx clobazam 20 mg tablet 20 mg PO TID Intractable epilepsy 01/21/24 02/26/24 02/26/24 Rx #90 tabs hydroxyzine HCl 50 mg tablet 50 mg PO QID PRN anxiety #120 tabs 01/21/24 02/26/24 02/26/24 Rx trazodone 100 mg tablet 200 mg (2 x 100 mg) PO .HS PRN 02/03/24 02/26/24 02/24/24 Rx insomnia #60 tabs fluconazole 150 mg tablet 150 mg PO Q3D PRN Outbreak 02/24/24 02/26/24 02/24/24 History Allergies Allergy/AdvReac Type Severity Reaction Status Date / Time amoxicillin Allergy Severe ALGY-Difficulty Verified 02/24/24 09:17 Breathing cephalexin [From Keflex] Allergy Severe ALGY-Difficulty Verified 02/24/24 09:17 Breathing sulfamethoxazole Allergy Severe ALGY-Difficulty Verified 02/24/24 09:17 [From Bactrim] Breathing trimethoprim [From Bactrim] AdvReac Severe ALGY-Difficulty Verified 02/24/24 09:17 Breathing Current Medications Generic Name Dose Route Start Last Admin Trade Name Benita PRN Reason Stop Dose Admin Sodium Chloride 1,000 mls @ 30 mls/hr 02/26/24 11:45 02/26/24 12:09 Sodium Chloride 0.9% IV 02/27/24 11:44 30 mls/hr .Q24H YENNIFER Administration PFSH Anesthesia Medical History Personality disorder Asthma Environmental and seasonal allergies 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 Major depressive disorder, recurrent, moderate Generalized anxiety disorder Surgical History Status post VNS (vagus nerve stimulator) placement History of dental surgery Family History (Updated 02/24/24 @ 14:20 by Akua Ibarra) Father Diabetes Hypertension Heart disease Hyperlipidemia Mother Hypertension Hyperlipidemia Social History Smoking and tobacco/nicotine status: never used tobacco/nicotine Second hand smoke exposure: Yes Alcohol intake: never Substance/Drug Use: never Lives independently: Yes Marital status: Unknown Current occupational status: disabled Current gender identity: Female Female Reproductive History Date of last menstrual period: 02/11/24 Data Anesthesia Cardiac Studies: No Data to Display
--- NOTE | 2024-02-26 13:49 | PM.HP ---
Providers/Chief Complaint Primary Care Provider: Ciera Deng MD Chief Complaint: Z12.11 History of Present Illness Donna Bravo is a 43 year old female Medications/Allergies Home Medications Medication Instructions Recorded Confirmed Last Taken Type diphenhydramine HCl 25 mg capsule 50 mg PO BID PRN Allergy Symptoms 10/24/21 02/26/24 02/24/24 History (Benadryl) naproxen sodium 220 mg tablet 220 mg PO Q8H PRN PAIN 10/24/21 02/26/24 02/24/24 History (Aleve) triamcinolone acetonide 55 mcg 1 spray intranasal DAILY PRN 10/24/21 02/26/24 02/24/24 History nasal spray aerosol (Nasacort) Allergy Symptoms bismuth subsalicylate 262 mg 2 tab PO Q30M PRN diarrhea 11/07/21 02/24/24 02/24/24 History tablet (Pepto-Bismol) multivitamin-folic acid 400 1 tab PO DAILY 11/07/21 02/26/24 02/24/24 History mcg-biotin 2,000 mcg tablet (Lmym-Ufsy-Vkuug (tpnhakys-ebwtf-dxupds)) pot bicarb 344 mg-sod bicarb 1,050 1 tab PO Q4H PRN stomach upset 11/07/21 02/26/24 02/24/24 History mg-citric acid 1,000 mg efferv tab (Sindy-[place] Gold) albuterol sulfate 90 mcg/actuation 2 inh inhalation Q4H PRN shortness 07/09/23 02/26/24 02/24/24 Rx aerosol inhaler of breath or wheezing #8.5 grams ergocalciferol (vitamin D2) 1,250 1,250 mcg PO .weekly #12 caps 07/09/23 02/26/24 02/22/24 Rx mcg (50,000 unit) capsule fluticasone 100 mcg-salmeterol 50 1 inh inhalation BID #60 ea 07/09/23 02/26/24 02/24/24 Rx mcg/dose blistr powdr for inhalation (Advair Diskus) lamotrigine 100 mg tablet 100 mg PO BID #60 tabs 11/27/23 02/26/24 02/26/24 Rx clobazam 20 mg tablet 20 mg PO TID Intractable epilepsy 01/21/24 02/26/24 02/26/24 Rx #90 tabs hydroxyzine HCl 50 mg tablet 50 mg PO QID PRN anxiety #120 tabs 01/21/24 02/26/24 02/26/24 Rx trazodone 100 mg tablet 200 mg (2 x 100 mg) PO .HS PRN 02/03/24 02/26/24 02/24/24 Rx insomnia #60 tabs fluconazole 150 mg tablet 150 mg PO Q3D PRN Outbreak 02/24/24 02/26/24 02/24/24 History Allergies Allergy/AdvReac Type Severity Reaction Status Date / Time amoxicillin Allergy Severe ALGY-Difficulty Verified 02/24/24 09:17 Breathing cephalexin [From Keflex] Allergy Severe ALGY-Difficulty Verified 02/24/24 09:17 Breathing sulfamethoxazole Allergy Severe ALGY-Difficulty Verified 02/24/24 09:17 [From Bactrim] Breathing trimethoprim [From Bactrim] AdvReac Severe ALGY-Difficulty Verified 02/24/24 09:17 Breathing PFSH Acute PFSH: Medical History Personality disorder Asthma Environmental and seasonal allergies 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 Major depressive disorder, recurrent, moderate Generalized anxiety disorder Surgical History Status post VNS (vagus nerve stimulator) placement History of dental surgery Family History (Updated 02/24/24 @ 14:20 by Akua Ibarra) Father Diabetes Hypertension Heart disease Hyperlipidemia Mother Hypertension Hyperlipidemia Social History Smoking and tobacco/nicotine status: never used tobacco/nicotine Second hand smoke exposure: Yes Alcohol intake: never Substance/Drug Use: never Lives independently: Yes Marital status: Unknown Current occupational status: disabled Current gender identity: Female Female Reproductive History: Date of last menstrual period: 02/11/24 Vitals/I&O/Wt Last Vital Signs Temp 97.3 F L 02/26/24 11:55 Pulse 89 02/26/24 11:55 Resp 18 02/26/24 11:55 BP 101/74 02/26/24 11:55 Pulse Ox 99 02/26/24 11:55 O2 Del Method Room Air 02/26/24 11:55 Weight last 48 hrs Weight 170 lb 12.8 oz A&P Assessment and plan (1) GI bleed: Plan EGD and colonoscopy Attestations Medical Necessity Statement*: Home Coding Level of Care Code Acute Code for Chg Fwd Diagnoses GI bleed K92.2
[2024-02-26 14:12] VITALS: BP 104/70; PULSE 75; RESP 18; TEMP 36.5; O2SAT 100
[2024-02-26 14:19] VITALS: BP 112/73; PULSE 72; RESP 16; O2SAT 100
--- NOTE | 2024-02-26 14:30 | ANE.PACU2 ---
Inpatient post-anesthesia follow up: Airway intact: Yes Vital signs: Temperature 97.7 F Pulse Rate 72 Respiratory Rate 16 Blood Pressure 112/73 Pulse Oximetry 100 Oxygen Delivery Me thod Room Air Oxygen Flow Rate Fraction of Inspir ed Oxygen Hydration adequate: Yes Nausea and vomiting: No Pain level: 1 Mental status: Baseline
== END 2024-02-26 14:33 | disposition home or self-care (01) ==
PROVIDERS: Anesthesiology; PCP Family Medicine; Visit Provider Surgery
PROC: 0DJ08ZZ Inspection of Upper Intestinal Tract, Via Natural or Artificial Opening Endoscopic (ICD-10-PCS; CPT 43235; principal; 2024-02-26 12:45)
PROC: 0DJD8ZZ Inspection of Lower Intestinal Tract, Via Natural or Artificial Opening Endoscopic (ICD-10-PCS; CPT 45378; 2024-02-26 12:45)
DX: Z12.11 Encounter for screening for malignant neoplasm of colon (principal); J45.909 Unspecified asthma, uncomplicated; F41.1 Generalized anxiety disorder; K64.8 Other hemorrhoids; K29.50 Unspecified chronic gastritis without bleeding
CPT/HCPCS: 43239; 45378; 81025; 88305; 88342; J2704; J7030

== ENCOUNTER → 2024-03-24 14:36 | Outpatient (BNVA) | payer MEDICAID, SELFPAY ==
[2023-07-08 10:30] VITALS: BP 112/68; BMI 26.4
== END ==
PROVIDERS: PCP Family Medicine; Visit Provider Psychiatry & Neurology Neurology
DX: G40.119 Localization-related (focal) (partial) symptomatic epilepsy and epileptic syndromes with simple partial seizures, intractable, without status epilepticus (principal); Z96.82 Presence of neurostimulator; R94.01 Abnormal electroencephalogram [EEG]
CPT/HCPCS: 99212

== ENCOUNTER → 2024-03-26 14:05 | Outpatient (BNVA) | payer MEDICAID, SELFPAY ==
[2023-07-08 10:30] VITALS: BP 112/68; BMI 26.4
== END ==
PROVIDERS: PCP Family Medicine; Visit Provider Surgery
DX: Z09 Encounter for follow-up examination after completed treatment for conditions other than malignant neoplasm (principal)
CPT/HCPCS: 99214

== ENCOUNTER 2024-08-02 17:13 | Emergency (ER) | payer MEDICAID, SELFPAY ==
[2023-07-08 10:30] VITALS: BP 112/68; BMI 26.4
[2024-08-02 17:18] VITALS: BP 97/73; PULSE 69; RESP 18; TEMP 36.7; O2SAT 99
--- NOTE | 2024-08-02 17:44 | ED_ITS ---
HPI - Weakness 2 General: Chief complaint: Weakness Stated complaint: FALLS Time Seen by Provider: 08/02/24 17:14 History of Present Illness: 44-year-old female presents the emergenc y department for episodes of lightheadedness on standing and 2 episodes of syncope after standing. Patient reports that she has not been as active since it has been cold and dark. She says she is really only drinking about 12 ounces of fluid a day, if that. She has pretty low blood pressure at baseline. I stood her up at the side of the bed and her heart rate jumped from 74-104 and her blood pressure dropped by just over 20 mmHg. Patient does have a seizure disorder. She is reports this is not related to her seizures. She has not been having any breakthrough seizures. She does need a refill on her Lamictal as she has been down to just 1 tab a day instead of twice daily. Patient reports she is sore from the 2 falls/syncope. She is unsure if she hit her head or not. She does have a vagal nerve stimulator. She is not having any altered mental status, headache, vomiting, fever, neck stiffness or chills. She does not think she has a UTI. LMP about 2 weeks ago. No GI bleeding, vaginal bleeding, vomiting, nausea. Patient's seizure history by Dr. Hurd's note from consultation earlier this year: Dr Hurd: 43-year-old female with a history of intractable epilepsy which began when the patient was in the fourth grade, ictal focus in the right posterior brain region with abnormal PET scan revealing hypometabolism in the right parietal and occipital lobe and MRI revealing cortical lesion in the right occipital lobe with T1 hypointensity and T2 flair hyperintensity. Patient reports that she usually experiences approximately 3 brief seizures per month described as some difficulty concentrating but without altered awareness. The patient stated that she will experience 1 seizure prior to her menstrual cycle, 1 seizure during her menses and 1 seizure prior to the end of her menstrual cycle. The patient stated she is able to function during the brief seizure episodes. Last reported seizure 09/08/2023. The patient reports compliance with her anticonvulsant medications which she usually takes at 11 AM and 8 PM daily. Patient taking lamictal and onfi. Associated symptoms: Denies chest pain, chills, dysuria, fever(s), headache(s), nausea, syncope or vomiting Review of Systems 2 General: Reports: 10 or more systems reviewed and unremarkable except in HPI and below Const: Denies: fever(s), chills or body aches Eyes: Denies: change in vision ENMT: Denies: throat pain Card: Denies: chest pain, edema or syncope Resp: Denies: dyspnea or productive cough GI: Denies: abdominal pain, nausea, vomiting or diarrhea : Denies: flank pain, dysuria or urinary frequency Musc: Denies: neck pain, back pain, extremity pain or extremity swelling Skin/Breast: Denies: rash or erythema Neuro: Denies: headache(s), numbness in extremities, weakness in extremities, lack of coordination or difficulty walking PFSH ED 2 PFSH: Medical History Personality disorder Asthma Environmental and seasonal allergies 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 Major depressive disorder, recurrent, moderate Generalized anxiety disorder Surgical History Status post VNS (vagus nerve stimulator) placement History of dental surgery Family History Father Diabetes Hypertension Heart disease Hyperlipidemia Mother Hypertension Hyperlipidemia Social History Smoking and tobacco/nicotine status: never used tobacco/nicotine Second hand smoke exposure: Yes Alcohol intake: never Substance/Drug Use: never Lives independently: Yes Marital status: Unknown Current occupational status: disabled Current gender identity: Female Physical Exam 2 Narrative: EXAM NARRATIVE: Vagal nerve stimulator line palpable in the left neck. Patient well-appearing and nontoxic. Mouth is relatively dry. Heart rate is 84. Patient is orthostatic with standing. Heart rate jumps approximately 20 bpm and systolic blood pressure drops just over 20 mmHg. No signs of head trauma. Remainder of trauma exam notable for mild soreness on the right lumbar paraspinal region. No other areas of significant concern. Const: COMMON NORMALS: no limitations, alert and well nourished EXAM LIMITATIONS: no altered mental status HENMT: COMMON NORMALS: normocephalic, atraumatic and external ears normal H EAD & SCALP: normocephalic and atraumatic EXTERNAL EAR: Yes external ears normal MOUTH: no muffled voice Eye: COMMON NORMALS: EOMs intact bilaterally, conjunctivae normal and no scleral icterus CONJUNCTIVA: Yes conjunctivae normal Neck/C-Spine: COMMON NORMALS: no JVD GENERAL: Yes normal visual inspection and Yes trachea midline Resp: COMMON NORMALS: normal respiratory effort, No use of accessory muscles and clear to auscultation bilaterally AUSCULTATION: clear to auscultation bilaterally Cardio: COMMON NORMALS: no JVD, regular rate and regular rhythm RATE: r egular rate RHYTHM: regular rhythm GI: COMMON NORMALS: Soft to palpation and non-tender PALPATION: Yes Soft to palpation and No Guarding due to palpation present (GI) Extremity: COMMON NORMALS: normal to inspection Neuro: COMMON NORMALS: moves all extremities, no focal motor deficits and no sensory deficits noted SENSORIUM/ORIENTATION: Yes alert SPEECH: speech normal Psych: COMMON NORMALS: mental status grossly normal, Normal thought process present, cooperative, normal affect and speech normal SPEECH: Yes normal speech THOUGHT PROCESS: Normal thought process present Skin: COMMON NORMALS: no rashes or lesions noted, turgor normal and no jaundice GENERAL SKIN EXAM: no rashes or lesions noted and turgor normal Course 2 Vital Signs: Vital signs: Vital Signs Temperature 98.1 F 08/02/24 17:18 Pulse Rate 59 L 08/02/24 20:39 Respiratory Rate 16 08/02/24 20:39 Blood Pressure 114/61 08/02/24 20:39 Pulse Oximetry 100 08/02/24 20:39 Oxygen Delivery Me thod Room Air 08/02/24 20:39 MDM - Weakness Medical Decision Making Patient was resuscitated with 2 L of IV fluids. Patient has mildly low NaCl and slightly elevated creatinine. Think this is in keeping with the patient's report of poor p.o. intake and dehydration. Mild anemia present. No other concerning lab findings. EKG obtained at 1809. Patient has sinus rhythm, rate 67, some pseudo ST depression, no concerning ST segment elevations. No ectopy. QTc within normal limits. After 2 L of IV fluid, the patient's orthostatic vital signs improved. Her heart rate jumped transiently and came back down. Her blood pressure also dropped transiently in the first minute and then quickly returned to normal. I think patient is stable for discharge. Will have her drink 60 ounces of fluid and measured out daily. Patient given specific return precautions. Lab Data 08/02/24 18:16 08/02/24 18:16 Laboratory Results WBC 5.65 10^3/uL (3.29-11.43) 08/02/24 18:16 RBC 4.03 10^6/uL (3.85-5.65) 08/02/24 18:16 Hgb 11.80 g/dL (11.27-16.99) 08/02/24 18:16 Hct 35.3 % (36-47) L 08/02/24 18:16 MCV 87.6 fl (85-98) 08/02/24 18:16 MCH 29.3 pg (27-33) 08/02/24 18:16 MCHC 33.4 g/dL (30-55) 08/02/24 18:16 RDW 11.9 % (12.1-15.1) L 08/02/24 18:16 Plt Count 276 10^3/cmm (157-399) 08/02/24 18:16 MPV 9.0 fL (7.4-10.4) 08/02/24 18:16 Neut % (Auto) 68.8 % 08/02/24 18:16 Lymph % (Auto) 17.5 % 08/02/24 18:16 [place] % (Auto) 7.8 % 08/02/24 18:16 Eos % (Auto) 5.0 % 08/02/24 18:16 Baso % (Auto) 0.7 % 08/02/24 18:16 Neut # (Auto) 3.89 10^3/uL (1.8-7.7) 08/02/24 18:16 Lymph # (Auto) 1.0 10^3/uL (0.8-4.8) 08/02/24 18:16 [place] # (Auto) 0.4 10^3/uL (0.2-0.9) 08/02/24 18:16 Eos # (Auto) 0.3 10^3/uL (0.0-0.8) 08/02/24 18:16 Baso # (Auto) 0.0 10^3/uL (0.0-0.1) 08/02/24 18:16 Nucleated RBC % (auto) 0 % 08/02/24 18:16 Nucleated RBCs # 0.0 /100WBC 08/02/24 18:16 Sodium 131 mmol/L (136-145) L 08/02/24 18:16 Potassium 3.8 mmol/L (3.5-5.1) 08/02/24 18:16 Chloride 97 mmol/L (98-107) L 08/02/24 18:16 Carbon Dioxide 29 mmol/L (22-29) 08/02/24 18:16 Anion Gap 8.8 (5-19) 08/02/24 18:16 BUN 10 mg/dL (6-20) 08/02/24 18:16 Creatinine 1.1 mg/dL (0.5-0.9) H 08/02/24 18:16 GFR Calculation 54.2 mL/min (90-130) L 08/02/24 18:16 Glucose 112 mg/dL (65-115) 08/02/24 18:16 Calculated Osmolality 272 mOsm/kg (285-295) L 08/02/24 18:16 Calcium 9.4 mg/dL (8.5-10.5) 08/02/24 18:16 Magnesium 2.1 mg/dL (1.7-2.3) 08/02/24 18:16 Total Bilirubin 0.2 mg/dL (0.15-1.2) 08/02/24 18:16 AST 15 U/L (0-32) 08/02/24 18:16 ALT < 5 U/L (0-33) 08/02/24 18:16 Alkaline Phosphatase 69 U/L (35-105) 08/02/24 18:16 Total Protein 6.0 g/dL (6.6-8.7) L 08/02/24 18:16 Albumin 4.3 g/dL (3.5-5.2) 08/02/24 18:16 Globulin 1.7 g/dL (1.3-4.6) 08/02/24 18:16 HCG, Qual Cancelled 08/02/24 20:44 Urine RBC 0-2 /hpf (0-2) 08/02/24 20:44 Urine WBC 0-5 /hpf (0-5) 08/02/24 20:44 Ur Squamous Epith Cells 0-5 /hpf (0-5) 08/02/24 20:44 Amorphous Sediment Not Reportable 08/02/24 20:44 Urine Bacteria 2+ /hpf (NONE) H 08/02/24 20:44 Hyaline Casts 0-4 /lpf H 08/02/24 20:44 Urine Opiates Screen Negative ng/mL (Negative) 08/02/24 20:44 Ur Barbiturates Screen Negative ng/mL (Negative) 08/02/24 20:44 Ur Phencyclidine Scrn Negative ng/mL (Negative) 08/02/24 20:44 Ur Amphetamines Screen Negative ng/mL (Negative) 08/02/24 20:44 U Benzodiazepines Scrn Positive ng/mL (Negative) H 08/02/24 20:44 Urine Cocaine Screen Negative ng/mL (Negative) 08/02/24 20:44 U Marijuana (THC) Screen Negative ng/mL (Negative) 08/02/24 20:44 No radiology studies performed this visit Discharge Plan Discharge Patient Disposition: Home Clinical Impression: Syncope due to orthostatic hypotension, Acute dehydration, Medication refill Condition: Stable Prescriptions: Continued lamotrigine 100 mg tablet 150 mg PO BID Qty: 60 5RF No Action triamcinolone acetonide [Nasacort] 55 mcg aerosol,spray 1 spray intranasal DAILY PRN (Reason: Allergy Symptoms) Rx Instructions: administer into each nostril diphenhydramine HCl [Benadryl] 25 mg capsule 50 mg PO BID PRN (Reason: Allergy Symptoms) naproxen sodium [Aleve] 220 mg tablet 220 mg PO Q8H PRN (Reason: PAIN) Hold Instructions: Resume on 02/28/24. Owjv-Vssp-Pmgtb (cf-ES-fafdbt) 400-2,000 mcg tablet 1 tab PO DAILY Pepto-Bismol 262 mg tablet 2 tab PO Q30M PRN (Reason: diarrhea) Rx Instructions: do not exceed 16 tabs per 24 hrs [place]indy[place] Gold 344-1,050-1,000 mg tablet, effervescent 1 tab PO Q4H PRN (Reason: stomach upset) fluticasone propion-salmeterol [Advair Diskus] 100-50 mcg/dose blister with device 1 inh INHALATION BID Qty: 60 5RF albuterol sulfate 90 mcg/actuation HFA aerosol inhaler 2 inh inhalation Q4H PRN (Reason: shortness of breath or wheezing) Qty: 8.5 5RF hydroxyzine HCl 50 mg tablet 50 mg PO QID PRN (Reason: anxiety) Qty: 120 2RF ergocalciferol (vitamin D2) 1,250 mcg (50,000 unit) capsule See Rx Instructions .ROUTE .COMPLEX Qty: 12 0RF Dose Instruction: Take 1 capsule by mouth once a week Rx Instructions: Take 1 capsule by mouth once a week clobazam 20 mg tablet 20 mg PO TID MDD 60 mg Qty: 90 5RF Rx Instructions: Take 1 tablet in the morning and 2 at bedtime trazodone 100 mg tablet 200 mg PO .HS PRN (Reason: insomnia) Qty: 60 0RF fluconazole 150 mg tablet 150 mg PO Q3D PRN (Reason: Outbreak) Rx Instructions: may repeat second dose 72 hrs after first dose if symptoms persist pantoprazole 40 mg tablet,delayed release (DR/EC) 40 mg PO BID 42 Days Qty: 84 1RF Discharge Orders: Discharge ED (Routine); Ordered 08/02/24 Ordered By: Cirilo Napoles Referrals: Ciera Deng MD [Primary Care Provider] - Patient Instructions: Syncope (ED), Lightheadedness (ED) Activity Restrictions/Additional Instructions: 1. Drink at least 60oz of fluid daily. 2. Your lamictal has been refilled. 3. Please read all discharge instructions and abide by recommendations and return precautions. Make an appointment to follow-up with your primary care doctor as directed for follow-up. Return to ER if getting worse or other emergent symptoms. Coding Level of Care Code ED Scouring Machine Tender for Chg Fwd Related Data Home Medications Medication Instructions Recorded Confirmed diphenhydramine HCl 25 mg capsule 50 mg PO BID PRN Allergy Symptoms 10/24/21 03/26/24 (Benadryl) naproxen sodium 220 mg tablet 220 mg PO Q8H PRN PAIN 10/24/21 03/26/24 (Aleve) triamcinolone acetonide 55 mcg 1 spray intranasal DAILY PRN 10/24/21 03/26/24 nasal spray aerosol (Nasacort) Allergy Symptoms bismuth subsalicylate 262 mg 2 tab PO Q30M PRN diarrhea 11/07/21 03/26/24 tablet (Pepto-Bismol) multivitamin-folic acid 400 1 tab PO DAILY 11/07/21 03/26/24 mcg-biotin 2,000 mcg tablet (Yidt-Pxke-Qejxn (wwoduxif-tybrf-cjozeo)) pot bicarb 344 mg-sod bicarb 1,050 1 tab PO Q4H PRN stomach upset 11/07/21 03/26/24 mg-citric acid 1,000 mg efferv tab ([place]indy-[place] Gold) fluconazole 150 mg tablet 150 mg PO Q3D PRN Outbreak 02/24/24 03/26/24 Previous Rx's Medication Instructions Recorded albuterol sulfate 90 mcg/actuation 2 inh inhalation Q4H PRN shortness 07/09/23 aerosol inhaler of breath or wheezing #8.5 grams fluticasone 100 mcg-salmeterol 50 1 inh inhalation BID #60 ea 07/09/23 mcg/dose blistr powdr for inhalation (Advair Diskus) hydroxyzine HCl 50 mg tablet 50 mg PO QID PRN anxiety #120 tabs 01/21/24 pantoprazole 40 mg tablet,delayed 40 mg PO BID 6 weeks #84 tabs 02/26/24 release ergocalciferol (vitamin D2) 1,250 See Rx Instructions .Route 03/31/24 mcg (50,000 unit) capsule .COMPLEX #12 caps clobazam 20 mg tablet 20 mg PO TID Intractable epilepsy 05/20/24 #90 tabs trazodone 100 mg tablet 200 mg (2 x 100 mg) PO .HS PRN 07/23/24 insomnia #60 tabs lamotrigine 100 mg tablet 150 mg (1.5 x 100 mg) PO BID #60 08/02/24 tabs Allergies Allergy/AdvReac Type Severity Reaction Status Date / Time amoxicillin Allergy Severe ALGY-Difficulty Verified 03/26/24 14:12 Breathing cephalexin [From Keflex] Allergy Severe ALGY-Difficulty Verified 03/26/24 14:12 Breathing sulfamethoxazole Allergy Severe ALGY-Difficulty Verified 03/26/24 14:12 [From Bactrim] Breathing trimethoprim [From Bactrim] AdvReac Severe ALGY-Difficulty Verified 03/26/24 14:12 Breathing
--- NOTE | 2024-08-02 18:05 | ECG_ITS ---
[facility] Test Date: 2024-08-02 Pat Name: Donna Bravo Department: Room: Gender: Female Block Cuber: : 1980 Requested By: Cirilo Napoles Order Number: [id number] [place] MD: Alejandro Abdalla M.D. 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 [email or web address]
[2024-08-02 18:29] LABS: Basophils % 0.7 %; Eosinophils # 0.3 10^3/uL (0.0-0.8); Hematocrit 35.3 % (36-47); Lymphocytes % 17.5 %; Mean Corpuscular HGB Conc 33.4 g/dL (30-55); Mean Corpuscular Hemoglobin 29.3 pg (27-33); Mean Corpuscular Volume 87.6 fl (85-98); Monocytes # 0.4 10^3/uL (0.2-0.9); Monocytes % 7.8 %; Neutrophils # 3.89 10^3/uL (1.8-7.7); Neutrophils % 68.8 %; Nucleated Red Blood Cells % 0 %; Platelet Count 276 10^3/cmm (157-399); Red Blood Count 4.03 10^6/uL (3.85-5.65); Red Cell Distribution Width 11.9 % (12.1-15.1); White Blood Count 5.65 10^3/uL (3.29-11.43)
[2024-08-02 18:39] LABS: HCG, Serum Qual Negative (Negative)
[2024-08-02 18:48] LABS: Alanine Aminotransferase < 5 U/L (0-33); Albumin Level 4.3 g/dL (3.5-5.2); Alkaline Phosphatase 69 U/L (35-105); Anion Gap 8.8 (5-19); Aspartate Amino Transferase 15 U/L (0-32); Blood Urea Nitrogen 10 mg/dL (6-20); Calcium 9.4 mg/dL (8.5-10.5); Carbon Dioxide 29 mmol/L (22-29); Chloride 97 mmol/L (98-107); Globulin 1.7 g/dL (1.3-4.6); Glomerular Filtration Rate 54.2 mL/min (90-130); Glucose 112 mg/dL (65-115); Magnesium 2.1 mg/dL (1.7-2.3); Osmolality Calculated 272 mOsm/kg (285-295); Potassium 3.8 mmol/L (3.5-5.1); Sodium 131 mmol/L (136-145); Total Bilirubin 0.2 mg/dL (0.15-1.2)
[2024-08-02] MEDS: lactated ringers 1,000 ML 999 ML IV (18:49)
[2024-08-02 18:54] VITALS: BP 104/74; PULSE 60; RESP 16; O2SAT 100
[2024-08-02] MEDS: acetaminophen 500 mg Tablet PO (19:13)
[2024-08-02] MEDS: lamoTRIgine 100 mg Tablet 150 MG PO (19:14)
[2024-08-02] MEDS: sodium chloride 0.9% 1,000 ML 999 ML IV (19:14)
[2024-08-02 19:44] VITALS: BP 120/73; PULSE 55; RESP 16; O2SAT 100
[2024-08-02 20:39] VITALS: BP 114/61; PULSE 59; RESP 16; O2SAT 100
[2024-08-02 21:01] LABS: Bacteria Urine 2+ /hpf; Hyaline Casts Urine 0-4 /lpf; RBC Urine 0-2 /hpf (0-2); Squamous Epithelial Cell Urine 0-5 /hpf (0-5); WBC Urine 0-5 /hpf (0-5)
[2024-08-02 21:04] LABS: Amphetamines Screen Urine Negative (Negative); Barbiturates Screen Urine Negative (Negative); Benzodiazepines Screen Urine Positive (Negative); Cocaine Screen Urine Negative (Negative); Opiate Screen Urine Negative (Negative); PCP Screen Urine Negative (Negative); THC Screen Urine Negative (Negative)
[2024-08-02 21:36] LABS: Add Urine Microscopic? YES; Bilirubin Urine Negative (Negative); Blood Urine Negative (Negative); Glucose Urine UA Negative (Normal); Ketones Urine Negative (Negative); Leukocyte Esterase Urine Negative (Negative); Nitrate Urine Negative (Negative); Protein Urine Negative (Negative); Specific Gravity, Urine 1.005 (1.005-1.030); Urine Appearance Clear (CLEAR); Urine Color Yellow (Yellow); Urobilinogen Urine 0.2 mg/dL (Negative); pH Urine 7.5 (5-7)
[2024-08-02 21:55] VITALS: BP 104/77; PULSE 56; RESP 14; O2SAT 100
== END 2024-08-02 21:54 | disposition home or self-care (01) ==
PROVIDERS: Emergency Provider Emergency Medicine; PCP Family Medicine
DX: I95.1 Orthostatic hypotension (principal); E86.0 Dehydration; Z76.0 Encounter for issue of repeat prescription
CPT/HCPCS: 36415; 80053; 80306; 81001; 83735; 84703; 85025; 93005; 99284; J7030; J7120

== ENCOUNTER 2024-09-12 18:17 | Emergency (ER) | payer MEDICAID, SELFPAY ==
[2023-07-08 10:30] VITALS: BP 112/68; BMI 26.4
[2024-09-12 18:19] VITALS: BP 129/80; PULSE 92; RESP 17; TEMP 37; O2SAT 100; BMI 23.6
--- NOTE | 2024-09-12 18:22 | XRR_ITS ---
PROCEDURE INFORMATION: Exam: XR Chest Exam date and time: 09/12/2024 6:26 PM Age: 44 years old Clinical indication: Cough and shortness of breath; Prior surgery; Surgery date: 6+ months; Surgery type: Vagus nerve stimulator; Patient HX: Cough with SOB. ; Additional info: Uri TECHNIQUE: Imaging protocol: Radiologic exam of the chest. Views: 1 view. COMPARISON: CR (CHEST, ) 04/07/2021 8:46 PM FINDINGS: Tubes, catheters and devices: Left chest wall stimulator device and lead extending superiorly to the left neck. Lungs: No pulmonary consolidation. Pleural spaces: No pneumothorax or pleural effusion. Heart/Mediastinum: Normal size of the cardiac silhouette. Bones/joints: Remote healed left-sided rib fractures. No evidence of an acute fracture. XR/XR chest 1V portable [id number] IMPRESSION: 1. No evidence of acute cardiopulmonary disease. Chronic findings as above.
--- NOTE | 2024-09-12 18:23 | ED_ITS ---
HPI - Headache General: Chief Complaint: Upper Respiratory Infection Stated Complaint: Migraine Time Seen by Provider: 09/12/24 18:18 Source: patient Mode of arrival: ambulatory Limitations: no limitations History of Present Illness: 44-year-old female states that over the last 2 days she been having cough sinus congestion sore throat states also has been having headache she denies any fever denies any vomiting diarrhea she rates her headache a 5 out of 10 currently denies this being the worst headache of her life denies any neck pain Associated symptoms: Deny chest pain, fever(s), nausea, rash or vomiting Related Data Home Medications Medication Instructions Recorded Confirmed diphenhydramine HCl 25 mg capsule 50 mg PO BID PRN Allergy Symptoms 10/24/21 03/26/24 (Benadryl) naproxen sodium 220 mg tablet 220 mg PO Q8H PRN PAIN 10/24/21 03/26/24 (Aleve) triamcinolone acetonide 55 mcg 1 spray intranasal DAILY PRN 10/24/21 03/26/24 nasal spray aerosol (Nasacort) Allergy Symptoms bismuth subsalicylate 262 mg 2 tab PO Q30M PRN diarrhea 11/07/21 03/26/24 tablet (Pepto-Bismol) multivitamin-folic acid 400 1 tab PO DAILY 11/07/21 03/26/24 mcg-biotin 2,000 mcg tablet (Klwu-Ttii-Talsv (jkyjnajj-mxmmc-xaxdoa)) pot bicarb 344 mg-sod bicarb 1,050 1 tab PO Q4H PRN stomach upset 11/07/21 03/26/24 mg-citric acid 1,000 mg efferv tab (Sindy-[place] Gold) fluconazole 150 mg tablet 150 mg PO Q3D PRN Outbreak 02/24/24 03/26/24 Previous Rx's Medication Instructions Recorded albuterol sulfate 90 mcg/actuation 2 inh inhalation Q4H PRN shortness 07/09/23 aerosol inhaler of breath or wheezing #8.5 grams fluticasone 100 mcg-salmeterol 50 1 inh inhalation BID #60 ea 07/09/23 mcg/dose blistr powdr for inhalation (Advair Diskus) hydroxyzine HCl 50 mg tablet 50 mg PO QID PRN anxiety #120 tabs 01/21/24 pantoprazole 40 mg tablet,delayed 40 mg PO BID 6 weeks #84 tabs 02/26/24 release clobazam 20 mg tablet 20 mg PO TID Intractable epilepsy 05/20/24 #90 tabs trazodone 100 mg tablet 200 mg (2 x 100 mg) PO .HS PRN 07/23/24 insomnia #60 tabs ergocalciferol (vitamin D2) 1,250 See Rx Instructions .Route 08/03/24 mcg (50,000 unit) capsule .COMPLEX #12 caps lamotrigine 100 mg tablet 150 mg (1.5 x 100 mg) PO BID #60 08/03/24 tabs Allergies Allergy/AdvReac Type Severity Reaction Status Date / Time amoxicillin Allergy Severe ALGY-Difficulty Verified 03/26/24 14:12 Breathing cephalexin [From Keflex] Allergy Severe ALGY-Difficulty Verified 03/26/24 14:12 Breathing sulfamethoxazole Allergy Severe ALGY-Difficulty Verified 03/26/24 14:12 [From Bactrim] Breathing trimethoprim [From Bactrim] AdvReac Severe ALGY-Difficulty Verified 03/26/24 14:12 Breathing Review of Systems Const: Denies: fever(s), chills, body aches or change in appetite Eyes: Denies: blurry vision or eye discomfort ENMT: Reports: throat pain and nasal congestion; Denies: dental pain Card: Denies: chest pain Resp: Reports: non-productive cough; Denies: dyspnea GI: Denies: abdominal pain, nausea, vomiting or diarrhea Musc: Denies: neck pain or back pain Skin/Breast: Denies: rash Neuro: Denies: headache(s) PFSH ED PFSH: Medical History Personality disorder Asthma Environmental and seasonal allergies 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 Major depressive disorder, recurrent, moderate Generalized anxiety disorder Surgical History Status post VNS (vagus nerve stimulator) placement History of dental surgery Family History Father Diabetes Hypertension Heart disease Hyperlipidemia Mother Hypertension Hyperlipidemia Social History Smoking and tobacco/nicotine status: never used tobacco/nicotine Second hand smoke exposure: Yes Alcohol intake: never Substance/Drug Use: never Lives independently: Yes Marital status: Unknown Current occupational status: disabled Current gender identity: Female Physical Exam Const: COMMON NORMALS: no acute distress, patient oriented x3 and healthy appearing HENMT: COMMON NORMALS: normocephalic and atraumatic HEAD & SCALP: normocephalic and atraumatic Eye: COMMON NORMALS: conjunctivae normal CONJUNCTIVA: Yes conjunctivae normal Neck/C-Spine: COMMON NORMALS: full ROM and supple Chest: COMMONS NORMALS: normal inspection of the chest Resp: COMMON NORMALS: normal respiratory effort and clear to auscultation bilaterally AUSCULTATION: clear to auscultation bilaterally Cardio: COMMON NORMALS: regular rate, regular rhythm and No murmurs present (Cardio) RATE: regular rate RHYTHM: regular rhythm Extremity: COMMON NORMALS: normal to inspection and full ROM Neuro: COMMON NORMALS: patient oriented x3, moves all extremities and no focal motor deficits Psych: COMMON NORMALS: mental status grossly normal, Normal thought process present and cooperative THOUGHT PROCESS: Normal thought process present Skin: COMMON NORMALS: no rashes or lesions noted and no wounds GENERAL SKIN EXAM: no rashes or lesions noted Course Vital Signs: Vital signs: Vital Signs Temperature 98.6 F 09/12/24 18:19 Pulse Rate 84 09/12/24 19:22 Respiratory Rate 16 09/12/24 19:22 Blood Pressure 129/80 09/12/24 19:22 Pulse Oximetry 99 09/12/24 19:22 Oxygen Delivery Me thod Room Air 09/12/24 18:19 MDM - Headache Medical Decision Making Patient presents here cough headache congestion likely an upper respiratory infection she is well-appearing here feels improved no signs of meningitis she is stable for discharge follow-up with PCP return if worsening. Medical Records I reviewed the patient's medical records. Lab Data Radiology Impressions Chest X-Ray 09/12/24 18:22 IMPRESSION: 1. No evidence of acute cardiopulmonary disease. Chronic findings as above. All radiology interpretation(s) finalized by discharge Discharge Plan Discharge Patient Disposition: Home Clinical Impression: Upper respiratory infection, Headache Condition: Stable Prescriptions: No Action triamcinolone acetonide [Nasacort] 55 mcg aerosol,spray 1 spray intranasal DAILY PRN (Reason: Allergy Symptoms) Rx Instructions: administer into each nostril diphenhydramine HCl [Benadryl] 25 mg capsule 50 mg PO BID PRN (Reason: Allergy Symptoms) naproxen sodium [Aleve] 220 mg tablet 220 mg PO Q8H PRN (Reason: PAIN) Hold Instructions: Resume on 02/28/24. Ayyr-Fzpp-Pcbej (no-FJ-goisue) 400-2,000 mcg tablet 1 tab PO DAILY Pepto-Bismol 262 mg tablet 2 tab PO Q30M PRN (Reason: diarrhea) Rx Instructions: do not exceed 16 tabs per 24 hrs Sindy-[place] Gold 344-1,050-1,000 mg tablet, effervescent 1 tab PO Q4H PRN (Reason: stomach upset) fluticasone propion-salmeterol [Advair Diskus] 100-50 mcg/dose blister with device 1 inh INHALATION BID Qty: 60 5RF albuterol sulfate 90 mcg/actuation HFA aerosol inhaler 2 inh inhalation Q4H PRN (Reason: shortness of breath or wheezing) Qty: 8.5 5RF hydroxyzine HCl 50 mg tablet 50 mg PO QID PRN (Reason: anxiety) Qty: 120 2RF clobazam 20 mg tablet 20 mg PO TID MDD 60 mg Qty: 90 5RF Rx Instructions: Take 1 tablet in the morning and 2 at bedtime trazodone 100 mg tablet 200 mg PO .HS PRN (Reason: insomnia) Qty: 60 0RF ergocalciferol (vitamin D2) 1,250 mcg (50,000 unit) capsule See Rx Instructions .ROUTE .COMPLEX Qty: 12 4RF Dose Instruction: Take 1 capsule by mouth once a week Rx Instructions: Take 1 capsule by mouth once a week lamotrigine 100 mg tablet 150 mg PO BID Qty: 60 5RF fluconazole 150 mg tablet 150 mg PO Q3D PRN (Reason: Outbreak) Rx Instructions: may repeat second dose 72 hrs after first dose if symptoms persist pantoprazole 40 mg tablet,delayed release (DR/EC) 40 mg PO BID 42 Days Qty: 84 1RF Discharge Orders: Discharge ED (Routine); Ordered 09/12/24 Ordered By: Yaneth Charles Referrals: Ciera Deng MD [Primary Care Provider] - 4-7 days Discharge Diet: Advance as tolerated Discharge Activity: Resume usual activity Patient Instructions: Headache, Upper Respiratory Infection (ED) Coding Level of Care Code ED Male Inf[facility] 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
[2024-09-12] MEDS: ketorolac 30 mg/mL INJ 15 MG IVP (19:16)
[2024-09-12] MEDS: diphenhydrAMINE 50 mg/mL SDV 1mL IVP (19:16)
[2024-09-12] MEDS: metoclopramide 5 mg/mL SDV 2 mL 10 MG IVP (19:16)
[2024-09-12] MEDS: dexamethasone 10 mg/mL INJ IVP (19:17)
[2024-09-12 19:22] VITALS: BP 129/80; PULSE 84; RESP 16; O2SAT 99
[2024-09-12 20:20] VITALS: BP 107/73; RESP 20; O2SAT 98
[2024-09-12 20:34] VITALS: BP 107/73; PULSE 88; O2SAT 97
[2024-09-12 21:08] LABS: Adenovirus Not Detected (NOT DETECT); Chlamydia Pneumoniae Not Detected (NOT DETECT); Coronavirus 229E,HKU1,NL63,OC4 Not Detected (NOT DETECT); Human Metapneumovirus Not Detected (NOT DETECT); Human Rhinovirus/Enterovirus Not Detected (NOT DETECT); Influenza A Detected (NOT DETECT); Influenza A H1 Not Detected (NOT DETECT); Influenza A H1-2009 Not Detected (NOT DETECT); Influenza A H3 Detected (NOT DETECT); Influenza B Not Detected (NOT DETECT); Mycoplasma Pneumoniae Not Detected (NOT DETECT); Parainfluenza Virus Type 1 Not Detected (NOT DETECT); Parainfluenza Virus Type 2 Not Detected (NOT DETECT); Parainfluenza Virus Type 3 Not Detected (NOT DETECT); Parainfluenza Virus Type 4 Not Detected (NOT DETECT); Respiratory Syncytial Virus A Not Detected (NOT DETECT); Respiratory Syncytial Virus B Not Detected (NOT DETECT); SARS-COV-2 Not Detected (NOT DETECT)
== END 2024-09-12 20:37 | disposition home or self-care (01) ==
PROVIDERS: Emergency Provider Emergency Medicine; PCP Family Medicine
DX: J06.9 Acute upper respiratory infection, unspecified (principal); R51.9 Headache, unspecified
CPT/HCPCS: 71045; 87486; 87581; 87633; 96374; 96375; 99284; J1100; J1200; J1885; J2765

== ENCOUNTER 2024-11-20 18:02 | Emergency (ER) | payer MEDICAID, SELFPAY ==
[2023-07-08 10:30] VITALS: BP 112/68; BMI 26.4
[2024-11-20 18:47] VITALS: BP 100/66; PULSE 87; RESP 17; TEMP 36.7; O2SAT 100
[2024-11-20] MEDS: CLONazepam 0.5 mg Tablet 1 MG PO ×2 (21:45)
--- NOTE | 2024-11-20 23:50 | W.ED.GENADLT ---
HPI - General Adult General: Chief complaint: General Medical Stated complaint: med refill Time Seen by Provider: 11/20/24 20:36 Source: patient Mode of arrival: ambulatory Limitations: no limitations History of Present Illness: Patient is a 44-year-old female who presents to the ED requesting medication refill. She reportedly ran out of her clobazam for epileptic seizures, was unable to get this filled with pharmacy today and was unable to get a hold of her neurologist who prescribes this. She is here just stating she needs a refill, she has no symptoms to report. MD complaint: Present for medication refill Associated symptoms: Deny chest pain, dyspnea, headache(s), nausea, rash, palpitations or vomiting Related Data Home Medications ?Medication ?Instructions ?Recorded ?Confirmed diphenhydramine HCl 25 mg capsule 50 mg PO BID PRN Allergy Symptoms 10/24/21 09/22/24 (Benadryl) naproxen sodium 220 mg tablet 220 mg PO Q8H PRN PAIN 10/24/21 09/22/24 (Aleve) Held on 02/26/24. Instructions: Resume on 02/28/24. triamcinolone acetonide 55 mcg 1 spray intranasal DAILY PRN 10/24/21 09/22/24 nasal spray aerosol (Nasacort) Allergy Symptoms bismuth subsalicylate 262 mg 2 tab PO Q30M PRN diarrhea 11/07/21 09/22/24 tablet (Pepto-Bismol) multivitamin-folic acid 400 1 tab PO DAILY 11/07/21 09/22/24 mcg-biotin 2,000 mcg tablet (Fsfc-Mijj-Nfosj (uwmptfpz-tglam-jiinps)) pot bicarb 344 mg-sod bicarb 1,050 1 tab PO Q4H PRN stomach upset 11/07/21 09/22/24 mg-citric acid 1,000 mg efferv tab ([place]indy[place] Gold) fluconazole 150 mg tablet 150 mg PO Q3D PRN Outbreak 02/24/24 09/22/24 Previous Rx's ?Medication ?Instructions ?Recorded albuterol sulfate 90 mcg/actuation 2 inh inhalation Q4H PRN shortness 07/09/23 aerosol inhaler of breath or wheezing #8.5 grams fluticasone 100 mcg-salmeterol 50 1 inh inhalation BID #60 ea 07/09/23 mcg/dose blistr powdr for inhalation (Advair Diskus) hydroxyzine HCl 50 mg tablet 50 mg PO QID PRN anxiety #120 tabs 01/21/24 pantoprazole 40 mg tablet,delayed 40 mg PO BID 6 weeks #84 tabs 02/26/24 release trazodone 100 mg tablet 200 mg (2 x 100 mg) PO .HS PRN 07/23/24 insomnia #60 tabs ergocalciferol (vitamin D2) 1,250 See Rx Instructions .Route 08/03/24 mcg (50,000 unit) capsule .COMPLEX #12 caps lamotrigine 100 mg tablet 150 mg (1.5 x 100 mg) PO BID #60 08/03/24 tabs clobazam 20 mg tablet 20 mg PO TID Intractable epilepsy 11/20/24 #90 tabs Allergies Allergy/AdvReac Type Severity Reaction Status Date / Time amoxicillin Allergy Severe ALGY-Difficulty Verified 09/22/24 13:42 Breathing cephalexin (From Keflex) Allergy Severe ALGY-Difficulty Verified 09/22/24 13:42 Breathing sulfamethoxazole (From Allergy Severe ALGY-Difficulty Verified 09/22/24 13:42 Bactrim) Breathing trimethoprim (From Bactrim) AdvReac Severe ALGY-Difficulty Verified 09/22/24 13:42 Breathing Review of Systems General: Reports: 10 or more systems reviewed and unremarkable except in HPI and below Const: Reports: other (present for med refill); Denies: fever(s), chills or fatigue Eyes: Denies: change in vision ENMT: Denies: throat pain, ear or mastoid pain or nasal discharge Card: Denies: chest pain, palpitations, swelling of feet/ankles or lightheadedness Resp: Denies: dyspnea, productive cough or wheezing GI: Denies: abdominal pain, nausea, vomiting, diarrhea or constipation Musc: Denies: neck pain, back pain or joint pain Skin/Breast: Denies: rash Neuro: Denies: headache(s), numbness in extremities or weakness in extremities PFSH ED PFSH: Medical History Personality disorder Asthma Environmental and seasonal allergies 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 Major depressive disorder, recurrent, moderate Generalized anxiety disorder Surgical History Status post VNS (vagus nerve stimulator) placement History of dental surgery Family History Father Diabetes Hypertension Heart disease Hyperlipidemia Mother Hypertension Hyperlipidemia Social History Smoking and tobacco/nicotine status: never used tobacco/nicotine Second hand smoke exposure: Yes Alcohol intake: never Substance/Drug Use: never Lives independently: Yes Marital status: Unknown Current occupational status: disabled Current gender identity: Female Physical Exam Const: COMMON NORMALS: no acute distress and no limitations GENERAL APPEARANCE: cooperative, comfortable and well developed ORIENTATION/CONSCIOUSNESS: Yes awake HENMT: COMMON NORMALS: normocephalic, atraumatic and hearing grossly normal bilaterally HEAD & SCALP: normocephalic and atraumatic Eye: COMMON NORMALS: Equal, round and reactive pupils present, EOMs intact bilaterally and conjunctivae normal CONJUNCTIVA: Yes conjunctivae normal PUPIL: Yes Equal, round and reactive pupils present Neck/C-Spine: COMMON NORMALS: full ROM, supple and no JVD Resp: COMMON NORMALS: normal respiratory effort, No retractions, No use of accessory muscles and clear to auscultation bilaterally AUSCULTATION: clear to auscultation bilaterally Cardio: COMMON NORMALS: no JVD, regular rate, regular rhythm, No clicks present (Cardio), No murmurs present (Cardio) and No rub (Cardio) RATE: regular rate RHYTHM: regular rhythm Extremity: COMMON NORMALS: normal to inspection, full ROM and capillary refill normal Psych: COMMON NORMALS: mental status grossly normal and Normal thought process present THOUGHT PROCESS: Normal thought process present Skin: COMMON NORMALS: no rashes or lesions noted GENERAL SKIN EXAM: no rashes or lesions noted Course Vital Signs: Vital signs: Vital Signs Temperature 98.1 F 11/20/24 18:47 Pulse Rate 87 11/20/24 18:47 Respiratory Rate 17 11/20/24 18:47 Blood Pressure 100/66 11/20/24 18:47 Pulse Oximetry 100 11/20/24 18:47 Oxygen Delivery Me thod Room Air 11/20/24 18:47 MDM - General Adult Medical Decision Making Patient presented for refill of her medications. Unable to call this in, so gave a couple of doses of clonazepam to take prior to Saturday where she states she will call to get it refilled again. She agrees with this plan, will return with any symptoms. No radiology studies performed this visit Discharge Plan Discharge Patient Disposition: Home Clinical Impression: Medication refill Condition: Stable Prescriptions: Continued clobazam 20 mg tablet 20 mg PO TID MDD 60 mg Qty: 90 5RF Rx Instructions: Take 1 tablet in the morning and 2 at bedtime No Action triamcinolone acetonide [Nasacort] 55 mcg aerosol,spray 1 spray intranasal DAILY PRN (Reason: Allergy Symptoms) Rx Instructions: administer into each nostril diphenhydramine HCl [Benadryl] 25 mg capsule 50 mg PO BID PRN (Reason: Allergy Symptoms) naproxen sodium [Aleve] 220 mg tablet 220 mg PO Q8H PRN (Reason: PAIN) Odse-Sqrq-Kgfuj (ae-VI-vujskp) 400-2,000 mcg tablet 1 tab PO DAILY Pepto-Bismol 262 mg tablet 2 tab PO Q30M PRN (Reason: diarrhea) Rx Instructions: do not exceed 16 tabs per 24 hrs [place] Gold 344-1,050-1,000 mg tablet, effervescent 1 tab PO Q4H PRN (Reason: stomach upset) fluticasone propion-salmeterol [Advair Diskus] 100-50 mcg/dose blister with device 1 inh INHALATION BID Qty: 60 5RF albuterol sulfate 90 mcg/actuation HFA aerosol inhaler 2 inh inhalation Q4H PRN (Reason: shortness of breath or wheezing) Qty: 8.5 5RF hydroxyzine HCl 50 mg tablet 50 mg PO QID PRN (Reason: anxiety) Qty: 120 2RF trazodone 100 mg tablet 200 mg PO .HS PRN (Reason: insomnia) Qty: 60 0RF ergocalciferol (vitamin D2) 1,250 mcg (50,000 unit) capsule See Rx Instructions .ROUTE .COMPLEX Qty: 12 4RF Dose Instruction: Take 1 capsule by mouth once a week Rx Instructions: Take 1 capsule by mouth once a week lamotrigine 100 mg tablet 150 mg PO BID Qty: 60 5RF fluconazole 150 mg tablet 150 mg PO Q3D PRN (Reason: Outbreak) Rx Instructions: may repeat second dose 72 hrs after first dose if symptoms persist pantoprazole 40 mg tablet,delayed release (DR/EC) 40 mg PO BID 42 Days Qty: 84 1RF Discharge Orders: Discharge ED (Routine); Ordered 11/20/24 Ordered By: Titi Siddiqui Referrals: Ciera Deng MD [Primary Care Provider] - Activity Restrictions/Additional Instructions: Take the clonazepam this week and as we discussed until Saturday where you can have your medication refilled. Please return with any new or worsening. Print Language: [place] Island[place] Coding Level of Care Code ED [employer] Casey
== END 2024-11-20 21:48 | disposition home or self-care (01) ==
PROVIDERS: Emergency Provider Physician Assistant; PCP Family Medicine
DX: Z76.0 Encounter for issue of repeat prescription (principal)
CPT/HCPCS: 99283; J9999

== ENCOUNTER → 2024-12-03 13:57 | Outpatient (BNVA) | payer MEDICAID, SELFPAY ==
[2023-07-08 10:30] VITALS: BP 112/68; BMI 26.4
== END ==
PROVIDERS: PCP Family Medicine; Visit Provider Podiatrist Foot & Ankle Surgery
DX: M25.572 Pain in left ankle and joints of left foot (principal); M25.571 Pain in right ankle and joints of right foot; M25.372 Other instability, left ankle; S93.402A Sprain of unspecified ligament of left ankle, initial encounter; X58.XXXA Exposure to other specified factors, initial encounter
CPT/HCPCS: 73610; 99214

== ENCOUNTER 2024-12-10 15:06 | Outpatient (CLI) | payer MEDICAID, SELFPAY ==
[2023-07-08 10:30] VITALS: BP 112/68; BMI 26.4
--- NOTE | 2024-12-10 14:30 | US_ITS ---
WS: [id number] ULTRASOUND SOFT TISSUES lateral LEFT ankle HISTORY: Peroneal tendon tear, ATFL tear COMPARISON: None available. TECHNIQUE: 2-D and color Doppler imaging is submitted. This ultrasound is not sufficient to adequately evaluate the peroneal tendon. There is an area of heterogeneity and soft tissue thickening over the lateral ankle which I believe is probably an abnormal peroneal tendon. This needs to be further evaluated as only a small portion of the tendon is visualized. The proximal and distal extent of this abnormality has not been elucidated. There is no increased vascularity. No fluid collection. US/US soft tissue/extremity [id number] IMPRESSION: Lateral LEFT ankle ultrasound is not adequate to evaluate the peroneal tendons. There is an area of heterogeneity which I suspect is probably an abnormal gabriel ana tendon. Recommendation: Further evaluation may be performed by MRI. Repeat ultrasound c an be performed with the radiologist present also. MRI would be much more sensi tive to evaluate the tendon.
[2024-12-10 16:54] LABS: 25 Hydroxy Vitamin D 63 ng/mL (30-100)
== END 2024-12-10 15:07 | disposition home or self-care (01) ==
PROVIDERS: PCP Family Medicine; Referring Provider Psychiatry & Neurology Neurology; Visit Provider Podiatrist Foot & Ankle Surgery
DX: M25.372 Other instability, left ankle (principal); G40.909 Epilepsy, unspecified, not intractable, without status epilepticus; G40.119 Localization-related (focal) (partial) symptomatic epilepsy and epileptic syndromes with simple partial seizures, intractable, without status epilepticus; E55.9 Vitamin D deficiency, unspecified; R93.6 Abnormal findings on diagnostic imaging of limbs
CPT/HCPCS: 36415; 76882; 80175; 82306

== ENCOUNTER 2024-12-31 13:31 | Outpatient (CLI) | payer MEDICAID, SELFPAY ==
[2024-12-29 16:11] VITALS: BP 112/68; BMI 26.4
--- NOTE | 2024-12-31 13:33 | MM_ITS ---
WS: [id number] BILATERAL 3D TOMOSYNTHESIS DIGITAL SCREENING MAMMOGRAPHY WITH CAD CLINICAL INFORMATION: SCREENING HISTORY: Screening mammogram. No current complaints. COMPARISON: 2023 TECHNIQUE: Bilateral CC and MLO views. FINDINGS: Scattered fibroglandular densities bilaterally. No suspicious focal mass, asymmetry, calcifications, or architectural distortion. No evidence of malignancy. MM/MM scr BI tomosynthesis [id number] IMPRESSION: DENSITY: There are scattered areas of fibroglandular density. BI-RADS: 2 - Benign. FOLLOW UP: 1 Year Follow-up Recommend return to annual screening mammography.
== END 2024-12-31 13:32 | disposition home or self-care (01) ==
PROVIDERS: PCP Nurse Practitioner Family; Visit Provider Nurse Practitioner Family
DX: Z12.31 Encounter for screening mammogram for malignant neoplasm of breast (principal); R92.323 Mammographic fibroglandular density, bilateral breasts
CPT/HCPCS: 77063; 77067

== ENCOUNTER → 2025-01-05 10:29 | Outpatient (BNVA) | payer MEDICAID, SELFPAY ==
[2024-12-29 16:11] VITALS: BP 112/68; BMI 26.4
== END ==
PROVIDERS: PCP Nurse Practitioner Family; Visit Provider Podiatrist Foot & Ankle Surgery
DX: S93.402A Sprain of unspecified ligament of left ankle, initial encounter (principal); S86.312A Strain of muscle(s) and tendon(s) of peroneal muscle group at lower leg level, left leg, initial encounter; X58.XXXA Exposure to other specified factors, initial encounter
CPT/HCPCS: 99213

== ENCOUNTER → 2025-01-06 13:21 | Outpatient (BNVA) | payer MEDICAID, SELFPAY ==
[2024-12-29 16:11] VITALS: BP 112/68; BMI 26.4
== END ==
PROVIDERS: PCP Nurse Practitioner Family; Visit Provider Psychiatry & Neurology Neurology
DX: G40.909 Epilepsy, unspecified, not intractable, without status epilepticus (principal); G40.119 Localization-related (focal) (partial) symptomatic epilepsy and epileptic syndromes with simple partial seizures, intractable, without status epilepticus
CPT/HCPCS: 99212

== ENCOUNTER → 2025-01-11 14:15 | Outpatient (BNVA) | payer MEDICAID, SELFPAY ==
[2024-12-29 16:11] VITALS: BP 112/68; BMI 26.4
== END ==
PROVIDERS: PCP Nurse Practitioner Family; Visit Provider Nurse Practitioner Family
DX: L98.9 Disorder of the skin and subcutaneous tissue, unspecified (principal); J45.909 Unspecified asthma, uncomplicated; Z13.6 Encounter for screening for cardiovascular disorders; G40.909 Epilepsy, unspecified, not intractable, without status epilepticus
CPT/HCPCS: 80053; 80061; 84443; 85025

== ENCOUNTER 2025-02-02 21:31 | Emergency (ER) | payer MEDICAID, SELFPAY ==
[2024-12-29 16:11] VITALS: BP 112/68; BMI 26.4
[2025-02-02 21:34] VITALS: BP 94/66; PULSE 77; RESP 16; TEMP 36.7; O2SAT 100; BMI 23.8
--- NOTE | 2025-02-02 21:42 | XRR_ITS ---
PROCEDURE INFORMATION: Exam: XR Left Shoulder Exam date and time: 02/02/2025 9:49 PM Age: 44 years old Clinical indication: Injury or trauma; Fall; Blunt trauma (contusions or hematomas); Left; Prior surgery; Surgery date: 6+ months; Surgery type: Lt shoulder vns; Additional info: Left shoulder injury TECHNIQUE: Imaging protocol: Radiologic exam of the left shoulder. Views: 2 or more views. COMPARISON: CR XR shoulder LT min 2V* [id number] 06/05/2021 10:25 AM FINDINGS: Bones/joints: There has been prior reconstruction of the left humeral neck with plate and screw fixation. No acute superimposed bony injury is evident. No evidence of hardware failure. Old healed left-sided rib fractures are noted. No acute rib injury is evident. Mild degenerative change noted in the acromioclavicular joint. Soft tissues: Normal. XR/XR shoulder LT min 2V* [id number] IMPRESSION: No evidence of acute bony injury or hardware failure.
[2025-02-03 02:38] VITALS: BP 110/83; PULSE 62; RESP 16; O2SAT 100
[2025-02-03 03:55] VITALS: BP 110/83; PULSE 54; RESP 16; O2SAT 100
--- NOTE | 2025-02-03 06:53 | W.ED.EXTPRO ---
HPI - Extremity Problem General: Chief complaint: Extremity Injury, Upper Stated complaint: left shoulder pain post fall Time Seen by Provider: 02/03/25 02:37 History of Present Illness: Patient is a well-appearing 44-year-old female seen for left shoulder pain. She states that she fell forward striking the anterior portion of her left shoulder on a bar causing significant pain. She is concerned because she had surgery on the same shoulder and was worried that maybe the hardware was loose or she dislocated it or rebroke the proximal humerus. She is able to move the arm with only minimal increase in pain. She has no other acute complaints and currently rates the pain at 3 of 10. Related Data Home Medications ?Medication ?Instructions ?Recorded ?Confirmed diphenhydramine HCl 25 mg capsule 50 mg PO BID PRN Allergy Symptoms 10/24/21 01/11/25 (Benadryl) naproxen sodium 220 mg tablet 220 mg PO Q8H PRN PAIN 10/24/21 01/11/25 (Aleve) Held on 02/26/24. Instructions: Resume on 02/28/24. triamcinolone acetonide 55 mcg 1 spray intranasal DAILY PRN 10/24/21 01/11/25 nasal spray aerosol (Nasacort) Allergy Symptoms bismuth subsalicylate 262 mg 2 tab PO Q30M PRN diarrhea 11/07/21 01/11/25 tablet (Pepto-Bismol) multivitamin-folic acid 400 1 tab PO DAILY 11/07/21 01/11/25 mcg-biotin 2,000 mcg tablet (Wizz-Rxek-Rrmqm (vlhinlxn-gzryg-fxrhmg)) pot bicarb 344 mg-sod bicarb 1,050 1 tab PO Q4H PRN stomach upset 11/07/21 01/11/25 mg-citric acid 1,000 mg efferv tab (Sindy-[place] Gold) folic acid 1 mg tablet 1 mg PO DAILY 01/11/25 01/11/25 Previous Rx's ?Medication ?Instructions ?Recorded albuterol sulfate 90 mcg/actuation 2 inh inhalation Q4H PRN shortness 07/09/23 aerosol inhaler of breath or wheezing #8.5 grams fluticasone 100 mcg-salmeterol 50 1 inh inhalation BID #60 ea 07/09/23 mcg/dose blistr powdr for inhalation (Advair Diskus) ergocalciferol (vitamin D2) 1,250 See Rx Instructions .Route 08/03/24 mcg (50,000 unit) capsule .COMPLEX #12 caps ASO Left Ankle Brace #1 ea 12/03/24 clobazam 20 mg tablet See Rx Instructions PO TID 01/06/25 Intractable epilepsy #90 tabs lamotrigine 100 mg tablet See Rx Instructions .Route 01/06/25 .COMPLEX #60 tabs meloxicam 7.5 mg tablet See Rx Instructions .Route 01/26/25 .COMPLEX #21 tabs Allergies Allergy/AdvReac Type Severity Reaction Status Date / Time amoxicillin Allergy Severe severe Verified 01/11/25 13:17 yeast infection cephalexin (From Keflex) Allergy Severe severe Verified 01/11/25 13:17 yeast infection sulfamethoxazole (From Allergy Severe severe Verified 01/11/25 13:17 Bactrim) yeast infection trimethoprim (From Bactrim) AdvReac Severe severe Verified 01/11/25 13:17 yeast infection PFSH ED PFSH: Medical History Personality disorder Asthma Environmental and seasonal allergies 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 Major depressive disorder, recurrent, moderate Generalized anxiety disorder Surgical History Status post VNS (vagus nerve stimulator) placement History of dental surgery Family History Father Diabetes Hypertension Heart disease Hyperlipidemia Mother Hypertension Hyperlipidemia Social History Smoking and tobacco/nicotine status: never used tobacco/nicotine Second hand smoke exposure: Yes Alcohol intake: never Substance/Drug Use: never Lives independently: Yes Marital status: Unknown Current occupational status: disabled Current gender identity: Female Physical Exam Const: COMMON NORMALS: no acute distress, patient oriented x3 and alert HENMT: COMMON NORMALS: normocephalic and atraumatic HEAD & SCALP: normocephalic and atraumatic Eye: COMMON NORMALS: Equal, round and reactive pupils present, EOMs intact bilaterally and no scleral icterus PUPIL: Yes Equal, round and reactive pupils present Resp: COMMON NORMALS: normal respiratory effort and No retractions Cardio: COMMON NORMALS: regular rate, regular rhythm and No murmurs present (Cardio) RATE: regular rate RHYTHM: regular rhythm GI: COMMON NORMALS: Normal to inspection, nondistended, normoactive bowel sounds present, Soft to palpation and non-tender PALPATION: Yes Soft to palpation Extremity: NARRATIVE EXTREMITY EXAM: No obvious deformity of the affected left shoulder. Full range of motion with only mildly increased pain. Neuro: COMMON NORMALS: patient oriented x3 SENSORIUM/ORIENTATION: Yes alert Skin: COMMON NORMALS: no rashes or lesions noted GENERAL SKIN EXAM: no rashes or lesions noted Course Vital Signs: Vital signs: Vital Signs Temperature 98.1 F 02/02/25 21:34 Pulse Rate 54 L 02/03/25 03:55 Respiratory Rate 16 02/03/25 03:55 Blood Pressure 110/83 02/03/25 03:55 Pulse Oximetry 100 02/03/25 03:55 Oxygen Delivery Me thod Room Air 02/02/25 21:34 MDM - Extremity (Nontraumatic) Medical Decision Making In summary, patient is a well-appearing 44-year-old female seen for concern of reinjuring her left shoulder as she fell and struck it. She does not want pain medication. X-ray shows intact hardware and no evidence of fracture or dislocation. Exam is reassuring. She will be discharged in stable condition with the use of yesb-smn-gfcsyqd medications for symptomatic care. Lab Data Radiology Impressions Shoulder X-Ray 02/02/25 21:42 IMPRESSION: No evidence of acute bony injury or hardware failure. All radiology interpretation(s) finalized by discharge Discharge Plan Discharge Patient Disposition: Home Clinical Impression: Contusion of left shoulder Condition: Stable Prescriptions: No Action triamcinolone acetonide [Nasacort] 55 mcg aerosol,spray 1 spray intranasal DAILY PRN (Reason: Allergy Symptoms) Rx Instructions: administer into each nostril diphenhydramine HCl [Benadryl] 25 mg capsule 50 mg PO BID PRN (Reason: Allergy Symptoms) naproxen sodium [Aleve] 220 mg tablet 220 mg PO Q8H PRN (Reason: PAIN) Raae-Kdoq-Yerpz (vm-ZJ-htaawm) 400-2,000 mcg tablet 1 tab PO DAILY Pepto-Bismol 262 mg tablet 2 tab PO Q30M PRN (Reason: diarrhea) Rx Instructions: do not exceed 16 tabs per 24 hrs Sindy-[place] Gold 344-1,050-1,000 mg tablet, effervescent 1 tab PO Q4H PRN (Reason: stomach upset) fluticasone propion-salmeterol [Advair Diskus] 100-50 mcg/dose blister with device 1 inh INHALATION BID Qty: 60 5RF albuterol sulfate 90 mcg/actuation HFA aerosol inhaler 2 inh inhalation Q4H PRN (Reason: shortness of breath or wheezing) Qty: 8.5 5RF folic acid 1 mg tablet 1 mg PO DAILY clobazam 20 mg tablet See Rx Instructions PO TID MDD 60 mg Qty: 90 5RF Rx Instructions: orally three times daily; Take 1 tablet in the morning and 2 at bedtime lamotrigine 100 mg tablet See Rx Instructions .ROUTE .COMPLEX Qty: 60 0RF Dose Instruction: TAKE 1 & 1/2 (ONE & ONE-HALF) TABLETS BY MOUTH TWICE DAILY Rx Instructions: TAKE 1 & 1/2 (ONE & ONE-HALF) TABLETS BY MOUTH TWICE DAILY (DME) ASO Left Ankle Brace See Rx Instructions .Route .MEDSUPPLY Qty: 1 0RF Rx Instructions: As directed by Home ergocalciferol (vitamin D2) 1,250 mcg (50,000 unit) capsule See Rx Instructions .ROUTE .COMPLEX Qty: 12 4RF Dose Instruction: Take 1 capsule by mouth once a week Rx Instructions: Take 1 capsule by mouth once a week meloxicam 7.5 mg tablet See Rx Instructions .ROUTE .COMPLEX Qty: 21 0RF Dose Instruction: Take 1 tablet by mouth once daily Rx Instructions: Take 1 tablet by mouth once daily Discharge Orders: Discharge ED (Routine); Ordered 02/03/25 Ordered By: Sung De La Torre Referrals: Anika Davidson FNP [Primary Care Provider, Family Practice] Discharge Diet: Usual diet Discharge Activity: Increase activity as tolerated Patient Instructions: Shoulder Pain (ED) Activity Restrictions/Additional Instructions: X-ray shows that your hardware in the shoulder is intact and there is no new fracture or dislocation. Print Language: [place] Coding Level of Care Code ED [employer] Casey
== END 2025-02-03 04:00 | disposition home or self-care (01) ==
PROVIDERS: Emergency Provider Student in an Organized Health Care Education/Training Program; PCP Nurse Practitioner Family
DX: S40.012A Contusion of left shoulder, initial encounter (principal); W19.XXXA Unspecified fall, initial encounter
CPT/HCPCS: 73030; 99283

== ENCOUNTER → 2025-04-23 11:07 | Outpatient (BNVA) | payer MEDICAID, SELFPAY ==
[2024-12-29 16:11] VITALS: BP 112/68; BMI 26.4
== END ==
PROVIDERS: PCP Nurse Practitioner Family; Referring Provider Specialist; Visit Provider Specialist
DX: G40.909 Epilepsy, unspecified, not intractable, without status epilepticus (principal); F41.1 Generalized anxiety disorder; G40.119 Localization-related (focal) (partial) symptomatic epilepsy and epileptic syndromes with simple partial seizures, intractable, without status epilepticus
CPT/HCPCS: 95819; 95970

== ENCOUNTER → 2025-07-05 12:35 | Outpatient (BNVA) | payer MEDICAID, SELFPAY ==
[2024-12-29 16:11] VITALS: BP 112/68; BMI 26.4
== END ==
PROVIDERS: PCP Nurse Practitioner Family; Visit Provider Nurse Practitioner Family
DX: N89.8 Other specified noninflammatory disorders of vagina (principal)
CPT/HCPCS: 81513; 87481; 87491; 87591; 87661